=== PATIENT | female | born 1970 | race Caucasian/White ===

== ENCOUNTER 2017-10-22 13:13 | Emergency (ER) | payer MEDICAID, OTHER ==
--- NOTE | 2017-10-22 14:11 | EDM.PDOC ---
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 Woke up this morning and fell out of bed with low back pain. Reports back issues yearly. Denies numbness or tingling. No urinary symptoms. Did use a TENS unit to get onto the couch. Her boyfriend brought her in today. 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 (see below) - Related Data Allergies Allergy/AdvReac Type Severity Reaction Status Date / Time cephalexin Allergy Rash Verified 10/22/17 13:52 clarithromycin [From Biaxin] Allergy Hives Verified 10/22/17 13:52 tramadol Allergy Abdominal Verified 10/22/17 13:53 Cramps Home Meds: Home Meds Gabapentin [Neurontin] 10/22/17 [History] Imipramine HCl 10/22/17 [History] Iron,Carbonyl/Vit C/Vit B12/Fa [Fe C Plus] 10/22/17 [History] Levothyroxine 10/22/17 [History] Lisinopril 10/22/17 [History] Ranitidine [Zantac] 10/22/17 [History] atorvaSTATin [Lipitor] 10/22/17 [History] Past Medical History Cardiovascular History: Reports: High Cholesterol, Hypertension Genitourinary History: Reports: UTI, Recurrent Musculoskeletal History: Reports: Fibromyalgia, Osteoporosis Endocrine/Metabolic History: Reports: Diabetes, Type II - Past Surgical History GI Surgical History: Reports: Bariatric Procedure, Cholecystectomy Female Surgical History: Reports: Tubal Ligation Social & Family History - Tobacco Use Smoking Status *Q: Never Smoker ED ROS GENERAL - Review of Systems Review Of Systems: See Below Constitutional: Reports: No Symptoms HEENT: Reports: No Symptoms Respiratory: Reports: No Symptoms Cardiovascular: Reports: No Symptoms Endocrine: Reports: No Symptoms GI/Abdominal: Reports: No Symptoms : Reports: No Symptoms Musculoskeletal: Reports: Back Pain Skin: Reports: No Symptoms Neurological: Reports: No Symptoms Psychiatric: Reports: No Symptoms Hematologic/Lymphatic: Reports: No Symptoms ED EXAM,LOWER BACK PAIN/INJURY - Physical Exam Exam: See Below Exam Limited By: No Limitations General Appearance: Alert, WD/WN, No Apparent Distress Ears: Normal External Exam, Normal Canal, Hearing Grossly Normal, Normal TMs Nose: Normal Inspection, Normal Mucosa, No Blood Throat/Mouth: Normal Inspection, Normal Lips, Normal Teeth, Normal Gums, Normal Oropharynx, Normal Voice, No Airway Compromise Head: Atraumatic, Normocephalic Neck: Normal Inspection, Supple, Non-Tender, Full Range of Motion Respiratory/Chest: No Respiratory Distress, Lungs Clear, Normal Breath Sounds, No Accessory Muscle Use, Chest Non-Tender Cardiovascular: Normal Peripheral Pulses, Regular Rate, Rhythm, No Edema, No Gallop, No JVD, No Murmur, No Rub GI/Abdominal: Normal Bowel Sounds, Soft, Non-Tender, No Organomegaly, No Distention, No Abnormal Bruit, No Mass Back Exam: Normal Inspection, Full Range of Motion, Other (pain with palpation over the posterior ischeal tuberosities) Extremities: Normal Inspection, Normal Range of Motion, Non-Tender, No Pedal Edema, Normal Capillary Refill Neurological: Alert, Normal Mood/Affect, Normal Dorsiflexion, CN II-XII Intact, Normal Plantar Flexion, Normal Gait, Normal Reflexes, No Motor/Sensory Deficits , Oriented x 3 Course - Vital Signs Last Recorded V/S: Last Vital Signs Temp 97.5 F 10/22/17 14:01 Pulse 91 10/22/17 14:01 Resp 16 10/22/17 14:01 BP 165/91 H 10/22/17 14:01 Pulse Ox 100 10/22/17 14:01 - Orders/Labs/Meds Meds: Medications Discontinued Medications Generic Name Dose Route Start Last Admin Trade Name Heladioq PRN Reason Stop Dose Admin Cyclobenzaprine HCl 10 mg 10/22/17 14:14 10/22/17 14:26 Flexeril PO 10/22/17 14:15 10 mg ONETIME ONE Administration Hydromorphone HCl 0.5 mg 10/22/17 14:55 10/22/17 15:09 Dilaudid IM 10/22/17 14:56 0.5 mg ONETIME ONE Administration Ketorolac Tromethamine 60 mg 10/22/17 14:14 10/22/17 14:27 Toradol IM 10/22/17 14:15 60 mg ONETIME ONE Administration Departure - Departure Time of Disposition: 15:45 Disposition: Home, Self-Care 01 Condition: Good Clinical Impression: Low back pain Qualifiers: Chronicity: acute Back pain laterality: midline Sciatica presence: without sciatica Qualified Code(s): M54.5 - Low back pain - Discharge Information Instructions: Back Exercises, Back Pain, Adult Referrals: PCP,None [Primary Care Provider] - Forms: ED Department Discharge Additional Instructions: Pt given Cyclobenzaprine and Ketorolac 60mg IM with partial response. Dilaudid 0.5mg IM given with good relief of pain. Ice applied. Pt to return home with ice, Aleve 1-2 tabs BID and stretching exercises. RX for Cyclobenzaprine 10mg TID prn pain. - Problem List & Annotations (1) Low back pain SNOMED Code(s): 488761166 Code(s): M54.5 - LOW BACK PAIN Status: Acute Priority: Medium Current Visit: Yes Qualifiers: Chronicity: acute Back pain laterality: midline Sciatica presence: without sciatica Qualified Code(s): M54.5 - Low back pain
[2017-10-22] MEDS ORDERED: Ketorolac 60 MG/2 ML SDV IM ONE (14:14)
[2017-10-22] MEDS ORDERED: Cyclobenzaprine 10 MG Tab PO ONE (14:14)
[2017-10-22] MEDS ORDERED: HYDROmorphone 0.5 MG/0.5 ML Syringe IM ONE (14:55)
== END 2017-10-22 15:53 | disposition home or self-care (01) ==
LOC: JP.ED 13:13
DX: M54.5 Low back pain (principal); E78.00 Pure hypercholesterolemia, unspecified; I10 Essential (primary) hypertension; E11.9 Type 2 diabetes mellitus without complications; Z88.1 Allergy status to other antibiotic agents; Z88.5 Allergy status to narcotic agent; Z79.899 Other long term (current) drug therapy
CPT/HCPCS: 96372; 99283; A9270; J1170; J1885

== ENCOUNTER 2019-01-30 12:02 | Emergency (ER) | payer MEDICAID ==
[2019-01-30] MEDS ORDERED: Acetaminophen 500 MG Tab PO ONE (13:25)
[2019-01-30] MEDS ORDERED: Phenazopyridine 95 MG Tab PO ONE (13:25)
[2019-01-30] MEDS ORDERED: Glycerin Adult 2.1 GM Supp RECTAL ONE (13:25)
[2019-01-30] MEDS ORDERED: Polyethylene Glycol 3350 Powder 17 GM Packet PO ONE (13:25)
[2019-01-30] MEDS ORDERED: Oxybutynin 5 MG Tab PO SCH (13:30)
--- NOTE | 2019-01-30 13:32 | EDM.PDOC ---
ED HPI GENERAL MEDICAL PROBLEM - General Chief Complaint: Abdominal Pain Stated Complaint: UTI, PAIN IN ABDOMEN Time Seen by Provider: 01/30/19 13:10 Source of Information: Reports: Patient, Old Records, RN History Limitations: Reports: No Limitations - History of Present Illness INITIAL COMMENTS - FREE TEXT/NARRATIVE: 48 yo female from [place], [place] presents with severe lower abdominal cramping. Has been hospitalized and evaluated by urology for a complicated UTI with a highly resistant strain of Klebsiella. Is currently taking methenamine prophylactically. Is taking a daily dose of Miralax, but admits she is currently constipated. No fevers. Is worried about her sx's being from another UTI. Last saw urology 6 days ago. PHx of [place] gastric bypass and AODM. Is perimenopausal. Is on Vesicare already. Onset: Today Onset Date: 01/30/19 Duration: Hour(s):, Waxing/Waning Location: Reports: Abdomen (low), Pelvis (bladder area) Quality: Reports: Other (crampy) Severity: Severe Improves with: Reports: None Worsens with: Reports: Other (unknown) Context: Reports: Other (See HPI) Associated Symptoms: Reports: Other (constipation). 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: Other (see below) (Usual meds only) Left Lower Pelvic Pain Score (Numeric/FACES): 10 - Related Data Allergies Allergy/AdvReac Type Severity Reaction Status Date / Time cephalexin Allergy Rash Verified 01/30/19 12:25 clarithromycin [From Biaxin] Allergy Hives Verified 01/30/19 12:25 tramadol Allergy Abdominal Verified 01/30/19 12:25 Cramps Home Meds: Home Meds Gabapentin [Neurontin] 300 mg PO DAILY 10/22/17 [History] Imipramine HCl 50 mg PO BEDTIME 10/22/17 [History] Iron,Carbonyl/Vit C/Vit B12/Fa [Fe C Plus] 1 tab PO DAILY 10/22/17 [History] Levothyroxine 200 mcg PO DAILY 10/22/17 [History] Lisinopril 10 mg PO DAILY 10/22/17 [History] atorvaSTATin [Lipitor] 20 mg PO DAILY 10/22/17 [History] Cholecalciferol (Vitamin D3) [Vitamin D] 1,000 units PO DAILY 01/30/19 [History] Ferrous Sulfate [Ferosul] 1 tab PO DAILY 01/30/19 [History] Gabapentin [Neurontin] 100 mg PO TID 01/30/19 [History] Methenamine Hippurate [Hiprex] 1 tab PO BID 01/30/19 [History] Mupirocin Oint [Bactroban Oint] 1 applic TOP TID 01/30/19 [History] Ondansetron HCl [Ondansetron] 1 tab PO TID PRN 01/30/19 [History] Polyethylene Glycol 3350 [Gavilax] 17 gm PO DAILY 01/30/19 [History] SUMAtriptan [Imitrex] 1 tab PO DAILY PRN 01/30/19 [History] Saccharomyces Boulardii [Florastor] 1 tab PO BID 01/30/19 [History] traZODone HCl [Trazodone HCl] 1 tab PO BEDTIME 01/30/19 [History] Past Medical History Cardiovascular History: Reports: High Cholesterol, Hypertension Genitourinary History: Reports: Renal Calculus, UTI, Recurrent Other Genitourinary History: infected cyst on one kidney and stone in other [employer] History: Reports: Musculoskeletal History: Reports: Fibromyalgia, Osteoporosis Neurological History: Reports: Migraines Endocrine/Metabolic History: Reports: Diabetes, Type II Hematologic History: Reports: B12 Deficiency, Iron Deficiency - Infectious Disease History Infectious Disease History: Reports: C-Difficile - Past Surgical History HEENT Surgical History: Reports: Tonsillectomy GI Surgical History: Reports: Bariatric Procedure, Cholecystectomy, Colonoscopy , EGD, Esophageal Dilatation Female Surgical History: Reports: Tubal Ligation Social & Family History - Tobacco Use Smoking Status *Q: Never Smoker - Caffeine Use Caffeine Use: Reports: Soda - Recreational Drug Use Recreational Drug Use: No ED ROS GENERAL - Review of Systems Review Of Systems: See Below Constitutional: Reports: No Symptoms HEENT: Reports: No Symptoms Respiratory: Reports: No Symptoms Cardiovascular: Reports: No Symptoms GI/Abdominal: Reports: Abdominal Pain (low, crampy), Constipation. Denies: Black Stool, Bloody Stool, Diarrhea, Distension, Flatus, Hematemesis, Melena, Nausea, Vomiting : Reports: Urgency. Denies: Dysuria, Hematuria Musculoskeletal: Reports: No Symptoms Skin: Reports: No Symptoms Neurological: Reports: No Symptoms ED EXAM, GI/ABD - Physical Exam Exam: See Below Exam Limited By: No Limitations General Appearance: Alert, WD/WN, No Apparent Distress Eyes: Bilateral: Normal Appearance Ears: Normal External Exam, Normal Canal, Hearing Grossly Normal Nose: Normal Inspection, No Blood Throat/Mouth: Normal Inspection, Normal Lips, Normal Oropharynx, Normal Voice, No Airway Compromise Head: Atraumatic, Normocephalic Neck: Normal Inspection Respiratory/Chest: No Respiratory Distress, Lungs Clear, Normal Breath Sounds, No Accessory Muscle Use Cardiovascular: Regular Rate, Rhythm, No Edema GI/Abdominal Exam: Normal Bowel Sounds, Soft, No Distention, Tender (mild low abdominal tenderness with palpation. ). No: Non-Tender, Distended, Guarding, Rigid, Rebound Back Exam: Normal Inspection. No: CVA Tenderness (R), CVA Tenderness (L) Extremities: Normal Inspection, Normal Range of Motion, Non-Tender, No Pedal Edema Neurological: Alert, Oriented, CN II-XII Intact, Normal Cognition, No Motor/ Sensory Deficits Psychiatric: Normal Affect, Normal Mood Skin Exam: Warm, Dry, Intact, Normal Color, No Rash Course - Vital Signs Text/Narrative:: small hard stool only with a Fleets enema. Last Recorded V/S: Last Vital Signs Temp 36.7 C 01/30/19 14:51 Pulse 84 01/30/19 14:51 Resp 18 01/30/19 14:51 BP 129/93 H 01/30/19 14:51 Pulse Ox 97 01/30/19 14:51 - Orders/Labs/Meds Orders: Active Orders 24 hr Category Date Time Status Enema [RC] ASDIRECTED Care 01/30/19 14:14 Active Oxybutynin Med 01/30/19 13:30 Active 5 mg PO DAILY Medication Orders Oxybutynin Chloride (Oxybutynin) 5 mg PO DAILY DEVAUGHN Last Admin: 01/30/19 13:36 Dose: 5 mg Labs: Laboratory Tests 01/30/19 Range/Units 12:24 Urine Color Yellow (YELLOW) Urine Appearance Slightly cloudy A (CLEAR) Urine pH 6.0 (5.0-8.0) Ur Specific [place] >= 1.030 (1.008-1.030) Urine Protein 30 H (NEGATIVE) mg/dL Urine Glucose (UA) Negative (NEGATIVE) mg/dL Urine Ketones Negative (NEGATIVE) mg/dL Urine Occult Blood Trace-intact H (NEGATIVE) Urine Nitrite Negative (NEGATIVE) Urine Bilirubin Negative (NEGATIVE) Urine Urobilinogen 0.2 (0.2-1.0) EU/dL Ur Leukocyte Esterase Negative (NEGATIVE) Urine RBC 0-5 (0-5) Urine WBC 0-5 (0-5) Ur Epithelial Cells Moderate Amorphous Sediment Not seen Urine Bacteria Few Urine Mucus Not seen Meds: Medications Generic Name Dose Route Start Last Admin Trade Name Freq PRN Reason Stop Dose Admin Oxybutynin Chloride 5 mg 01/30/19 13:30 01/30/19 13:36 Oxybutynin PO 5 mg DAILY DEVAUGHN Administration Discontinued Medications Generic Name Dose Route Start Last Admin Trade Name Freq PRN Reason Stop Dose Admin Acetaminophen 1,000 mg 01/30/19 13:25 01/30/19 13:36 Tylenol Extra Strength PO 01/30/19 13:26 1,000 mg ONETIME ONE Administration Glycerin 1 supp 01/30/19 13:25 01/30/19 13:36 Sani-Supp Adult RECTAL 01/30/19 13:26 1 supp ONETIME ONE Administration Phenazopyridine HCl 190 mg 01/30/19 13:25 01/30/19 13:36 Urinary Pain Relief PO 01/30/19 13:26 190 mg ONETIME ONE Administration Polyethylene Glycol 34 gm 01/30/19 13:25 01/30/19 13:35 Miralax PO 01/30/19 13:26 34 gm ONETIME ONE Administration Departure - Departure Time of Disposition: 14:56 Disposition: Home, Self-Care 01 Condition: Fair Clinical Impression: Constipation Qualifiers: Constipation type: slow transit constipation Qualified Code(s): K59.01 - Slow transit constipation - Discharge Information *PRESCRIPTION DRUG MONITORING PROGRAM REVIEWED*: No *COPY OF PRESCRIPTION DRUG MONITORING REPORT IN PATIENT OLYA: No Instructions: High-Fiber Diet Referrals: PCP,None [Primary Care Provider] - Forms: ED Department Discharge Additional Instructions: Drink enough Miralax with sufficient water to produce a sizeable soft stool. If you have a good cleaning out and still have pain then you will need to be rechecked. Continue your current medications and add acetaminophen as needed for more pain relief. You may also try repeating the Fleets enemas to speed up the process of evacuating your colon. - My Orders Last 24 Hours: My Active Orders 01/30/19 13:30 Oxybutynin 5 mg PO DAILY 01/30/19 14:14 Enema [RC] ASDIRECTED - Assessment/Plan Last 24 Hours: My Active Orders 01/30/19 13:30 Oxybutynin 5 mg PO DAILY 01/30/19 14:14 Enema [RC] ASDIRECTED
== END 2019-01-30 15:10 | disposition home or self-care (01) ==
LOC: JP.ED 12:02
DX: K59.01 Slow transit constipation (principal); I10 Essential (primary) hypertension; E11.9 Type 2 diabetes mellitus without complications; E78.00 Pure hypercholesterolemia, unspecified; Z88.1 Allergy status to other antibiotic agents; Z88.5 Allergy status to narcotic agent; Z79.899 Other long term (current) drug therapy
CPT/HCPCS: 81001; 99284; A9270

== ENCOUNTER 2020-04-05 01:43 | Inpatient (IN) | payer MEDICAID ==
[2020-04-05] MEDS ORDERED: Ondansetron 4 MG/2 ML SDV IVPUSH ONE (02:26)
--- NOTE | 2020-04-05 02:28 | EDM.PDOC ---
ED HPI GENERAL MEDICAL PROBLEM - General Chief Complaint: Gastrointestinal Problem Stated Complaint: ABD PAIN/BURNING Time Seen by Provider: 04/05/20 02:21 Source of Information: Reports: Patient, Family, RN Notes Reviewed History Limitations: Reports: No Limitations - History of Present Illness INITIAL COMMENTS - FREE TEXT/NARRATIVE: 49-year-old female presents emergency department a complaint of epigastric pain she had a gastric bypass in 2011 she states the pain has started about 3 to 4 days ago but got progressively worse today has had nausea and vomiting she still passing gas still have bowel movements she states the pain is exacerbated by food does have a history of cholecystectomy as well no fevers epigastric Pain Score (Numeric/FACES): 10 - Related Data Allergies Allergy/AdvReac Type Severity Reaction Status Date / Time cephalexin Allergy Rash Verified 04/05/20 02:08 clarithromycin [From Biaxin] Allergy Hives Verified 04/05/20 02:08 morphine Allergy Abdominal Verified 04/05/20 03:01 Pain tramadol Allergy Abdominal Verified 04/05/20 02:08 Cramps Home Meds: Home Meds Imipramine HCl 50 mg PO BEDTIME 10/22/17 [History] Iron,Carbonyl/Vit C/Vit B12/Fa [Fe C Plus] 1 tab PO DAILY 10/22/17 [History] Levothyroxine 175 mcg PO DAILY 10/22/17 [History] Lisinopril 10 mg PO DAILY 10/22/17 [History] atorvaSTATin [Lipitor] 20 mg PO DAILY 10/22/17 [History] Cholecalciferol (Vitamin D3) [Vitamin D] 1,000 units PO DAILY 01/30/19 [History] Ferrous Sulfate [Ferosul] 1 tab PO DAILY 01/30/19 [History] Methenamine Hippurate [Hiprex] 1 tab PO BID 01/30/19 [History] SUMAtriptan [Imitrex] 1 tab PO DAILY PRN 01/30/19 [History] Saccharomyces Boulardii [Florastor] 1 tab PO BID 01/30/19 [History] ondansetron HCL [Ondansetron] 1 tab PO TID PRN 01/30/19 [History] polyethylene glycoL 3350 [Gavilax] 17 gm PO DAILY PRN 01/30/19 [History] traZODone HCl [Trazodone HCl] 1 tab PO BEDTIME 01/30/19 [History] Cyanocobalamin (Vitamin B12) [Vitamin B12] 1 injection IM Q30D 04/05/20 [History] DULoxetine [Cymbalta] 30 mg PO DAILY 04/05/20 [History] Esomeprazole Magnesium [Nexium] 40 mg PO DAILY 04/05/20 [History] Past Medical History Cardiovascular History: Reports: High Cholesterol, Hypertension Gastrointestinal History: Reports: GERD, PUD Genitourinary History: Reports: Pyelonephritis, Renal Calculus, UTI, Recurrent Other Genitourinary History: infected cyst on one kidney and stone in other [employer]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: Musculoskeletal History: Reports: Fibromyalgia, Osteoporosis Neurological History: Reports: Migraines Psychiatric History: Reports: Depression Endocrine/Metabolic History: Reports: Diabetes, Type II Hematologic History: Reports: Anemia, B12 Deficiency, Iron Deficiency - Infectious Disease History Infectious Disease History: Reports: C-Difficile - Past Surgical History HEENT Surgical History: Reports: Tonsillectomy GI Surgical History: Reports: Bariatric Procedure, Cholecystectomy, Colonoscopy, EGD, Esophageal Dilatation Female Surgical History: Reports: Tubal Ligation Social & Family History - Tobacco Use Tobacco Use Status *Q: Never Tobacco User - Caffeine Use Caffeine Use: Reports: Soda - Recreational Drug Use Recreational Drug Use: No ED ROS GENERAL - Review of Systems Review Of Systems: See Below Constitutional: Reports: No Symptoms HEENT: Reports: No Symptoms Respiratory: Reports: No Symptoms Cardiovascular: Reports: No Symptoms GI/Abdominal: Reports: Abdominal Pain, Flatus, Nausea, Vomiting. Denies: Constipation, Diarrhea : Reports: No Symptoms ED EXAM, GI/ABD - Physical Exam Exam: See Below Exam Limited By: No Limitations General Appearance: Alert, Mild Distress Respiratory/Chest: No Respiratory Distress, Lungs Clear, Normal Breath Sounds, No Accessory Muscle Use, Chest Non-Tender Cardiovascular: Regular Rate, Rhythm, No Murmur GI/Abdominal Exam: Normal Bowel Sounds, Soft, Tender (Epigastric region) Course - Vital Signs Last Recorded V/S: Last Vital Signs Temp 97.8 F 04/05/20 02:16 Pulse 105 H 04/05/20 03:27 Resp 20 04/05/20 03:27 BP 193/100 H 04/05/20 03:27 Pulse Ox 99 04/05/20 03:27 - Orders/Labs/Meds Orders: Active Orders 24 hr Category Date Time Status Peripheral IV Care [RC] . DIRECTED Care 04/05/20 02:25 Active ETHANOL BLOOD MEDICAL [CHEM] Stat Lab 04/05/20 04:37 Ordered TRIGLYCERIDES [CHEM] Stat Lab 04/05/20 04:37 Ordered UA W/MICROSCOPIC [URIN] Urgent Lab 04/05/20 02:24 Ordered Lactated Ringers [Ringers, Lactated] 1,000 ml Med 04/05/20 02:30 Active IV ASDIRECTED Lactated Ringers [Ringers, Lactated] 1,000 ml Med 04/05/20 04:32 Active IV BOLUS Sodium Chloride 0.9% [Saline Flush] Med 04/05/20 02:24 Active 10 ml FLUSH ASDIRECTED PRN Sodium Chloride 0.9% [Saline Flush] Med 04/05/20 03:42 Active 10 ml FLUSH ONETIME PRN Peripheral IV Insertion Adult [OM.PC] Urgent Oth 04/05/20 02:24 Ordered Medication Orders Lactated Ringer's (Ringers, Lactated) 1,000 mls @ 999 mls/hr IV ASDIRECTED DEVAUGHN Last Admin: 04/05/20 02:48 Dose: 999 mls/hr Documented by: JERRELL Lactated Ringer's (Ringers, Lactated) 1,000 mls @ 999 mls/hr IV BOLUS ONE Stop: 04/05/20 05:32 Last Admin: 04/05/20 04:35 Dose: 999 mls/hr Documented by: JERRELL Sodium Chloride (Saline Flush) 10 ml FLUSH ASDIRECTED PRN PRN Reason: Keep Vein Open Last Admin: 04/05/20 03:22 Dose: 10 ml Documented by: Admin: 04/05/20 02:50 Dose: 10 ml Documented by: JERRELL Sodium Chloride (Saline Flush) 10 ml FLUSH ONETIME PRN PRN Reason: PER RADIOLOGY PROTOCOL Last Admin: 04/05/20 03:54 Dose: 10 ml Documented by: ITZ Labs: Laboratory Tests 04/05/20 04/05/20 04/05/20 Range/Units 02:40 02:40 02:40 WBC 17.1 H (4.5-11.0) K/uL RBC 4.79 (3.30-5.50) M/uL Hgb 12.8 (12.0-15.0) g/dL Hct 42.3 (36.0-48.0) % MCV 88 (80-98) fL MCH 27 (27-31) pg MCHC 30 L (32-36) % Plt Count 505 H (150-400) K/uL Neut % (Auto) 85 H (36-66) % Lymph % (Auto) 8 L (24-44) % Bremer % (Auto) 7 H (2-6) % Eos % (Auto) 0 L (2-4) % Baso % (Auto) 0 (0-1) % Sodium 132 L (140-148) mmol/L Potassium 4.4 (3.6-5.2) mmol/L Chloride 96 L (100-108) mmol/L Carbon Dioxide 19 L (21-32) mmol/L Anion Gap 21.4 H (5.0-14.0) mmol/L BUN 20 H (7-18) mg/dL Creatinine 1.1 H (0.6-1.0) mg/dL Est Cr Clr Drug Dosing 48.39 mL/min Estimated GFR (MDRD) 53 L (>60) Glucose 306 H (74-106) mg/dL Lactic Acid 5.9 H (0.4-2.0) mmol/L Calcium 8.6 (8.5-10.1) mg/dL Total Bilirubin 0.7 (0.2-1.0) mg/dL AST 28 (15-37) U/L ALT 33 (12-78) U/L Alkaline Phosphatase 137 H (46-116) U/L Troponin I < 0.017 (0.000-0.056) ng/mL Total Protein 7.6 (6.4-8.2) g/dL Albumin 3.4 (3.4-5.0) g/dL Globulin 4.2 H (2.3-3.5) g/dL Albumin/Globulin Ratio 0.8 L (1.2-2.2) Lipase 2521 H (73-393) U/L Meds: Medications Generic Name Dose Route Start Last Admin Trade Name Freq PRN Reason Stop Dose Admin Lactated Ringer's 1,000 mls @ 999 mls/hr 04/05/20 02:30 04/05/20 02:48 Ringers, Lactated IV 999 mls/hr ASDIRECTED DEVAUGHN Administration Lactated Ringer's 1,000 mls @ 999 mls/hr 04/05/20 04:32 04/05/20 04:35 Ringers, Lactated IV 04/05/20 05:32 999 mls/hr BOLUS ONE Administration Sodium Chloride 10 ml 04/05/20 02:24 04/05/20 03:22 Saline Flush FLUSH 10 ml ASDIRECTED PRN Administration Keep Vein Open Sodium Chloride 10 ml 04/05/20 03:42 04/05/20 03:54 Saline Flush FLUSH 10 ml ONETIME PRN Administration PER RADIOLOGY PROTOCOL Discontinued Medications Generic Name Dose Route Start Last Admin Trade Name Freq PRN Reason Stop Dose Admin Fentanyl 50 mcg 04/05/20 02:26 04/05/20 02:54 Sublimaze IM 04/05/20 02:27 Not Given ONETIME ONE Fentanyl 50 mcg 04/05/20 02:53 04/05/20 02:43 Sublimaze IVPUSH 04/05/20 02:54 50 mcg ONETIME ONE Administration Hydromorphone HCl 1 mg 04/05/20 03:09 04/05/20 03:15 Dilaudid IVPUSH 04/05/20 03:10 1 mg ONETIME ONE Administration Hydromorphone HCl 1 mg 04/05/20 04:39 Dilaudid IVPUSH 04/05/20 04:40 ONETIME ONE Sodium Chloride 77 mls @ 3 mls/sec 04/05/20 03:42 04/05/20 03:54 Normal Saline IV 04/05/20 03:43 3 mls/sec ONETIME ONE Administration Iopamidol 100 ml 04/05/20 03:42 04/05/20 03:54 Isovue-300 (61%) IV 100 ml . DIRECTED PRN Administration RADIOLOGY EXAM Ketamine HCl 20 mg 04/05/20 03:09 04/05/20 03:18 Ketalar IV 04/05/20 03:10 20 mg ONETIME ONE Administration Ondansetron HCl 4 mg 04/05/20 02:26 04/05/20 02:40 Zofran IVPUSH 04/05/20 02:27 4 mg ONETIME ONE Administration Departure - Departure Time of Disposition: 04:47 Disposition: Admitted As Inpatient 65 Condition: Fair Clinical Impression: Pancreatitis Qualifiers: Chronicity: acute Pancreatitis type: unspecified pancreatitis type Acute pancreatitis complication: no infection or necrosis Qualified Code(s): K85.90 - Acute pancreatitis without necrosis or infection, unspecified - Discharge Information Instructions: Acute Pancreatitis, [id number] Referrals: PCP,None [Primary Care Provider] - Forms: ED Department Discharge Sepsis Event Note (ED) - Evaluation Sepsis Screening Result: No Definite Risk - Focused Exam Vital Signs: Vital Signs Temp Pulse Resp BP Pulse Ox 04/05/20 03:27 105 H 20 193/100 H 99 04/05/20 03:07 106 H 22 H 162/116 H 97 04/05/20 02:16 97.8 F 121 H 22 H 112/92 H 97 - My Orders Last 24 Hours: My Active Orders 04/05/20 02:24 UA W/MICROSCOPIC [URIN] Urgent Sodium Chloride 0.9% [Saline Flush] 10 ml FLUSH ASDIRECTED PRN Peripheral IV Insertion Adult [OM.PC] Urgent 04/05/20 02:25 Peripheral IV Care [RC] . DIRECTED 04/05/20 02:30 Lactated Ringers [Ringers, Lactated] 1,000 ml IV ASDIRECTED 04/05/20 03:42 Sodium Chloride 0.9% [Saline Flush] 10 ml FLUSH ONETIME PRN 04/05/20 04:32 Lactated Ringers [Ringers, Lactated] 1,000 ml IV BOLUS 04/05/20 04:37 ETHANOL BLOOD MEDICAL [CHEM] Stat TRIGLYCERIDES [CHEM] Stat - Assessment/Plan Last 24 Hours: My Active Orders 04/05/20 02:24 UA W/MICROSCOPIC [URIN] Urgent Sodium Chloride 0.9% [Saline Flush] 10 ml FLUSH ASDIRECTED PRN Peripheral IV Insertion Adult [OM.PC] Urgent 04/05/20 02:25 Peripheral IV Care [RC] . DIRECTED 04/05/20 02:30 Lactated Ringers [Ringers, Lactated] 1,000 ml IV ASDIRECTED 04/05/20 03:42 Sodium Chloride 0.9% [Saline Flush] 10 ml FLUSH ONETIME PRN 04/05/20 04:32 Lactated Ringers [Ringers, Lactated] 1,000 ml IV BOLUS 04/05/20 04:37 ETHANOL BLOOD MEDICAL [CHEM] Stat TRIGLYCERIDES [CHEM] Stat Plan: Assessment Acuity = acute Site and laterality = pancreatitis complicated patient with known history of gastric bypass Etiology = unknown Manifestations = abdominal pain, nausea, vomiting Location of injury = Home Lab values = WBC elevated 17.1 consistent leukocytosis, platelets elevated 550 consistent with thrombocytosis sodium low at 132 consistent hyponatremia glucose elevated 306 consistent hyperglycemia lactic acid elevated 5.9 consistent with lactic acidosis probably related to the nausea and vomiting troponin was negative lipase elevated 2521 CT scan consistent with pancreatitis Plan Call discussed case with both Dr. Sheehan and Dr. Gonzales, Dr. Sheehan asked to be consulted admitting physician will be the hospitalist service at [phone] This note was dictated using [employer] voice recognition software please call with any questions on syntax or grammar.
[2020-04-05] MEDS ORDERED: Lactated Ringers 1,000 ML IV SCH ×3 (02:30→11:30)
[2020-04-05] MEDS: fentaNYL 100 MCG/2 ML SDV IM ONE ×2 (02:49→02:54)
[2020-04-05] MEDS: Sodium Chloride 0.9% 10 ML Syringe FLUSH PRN ×2 (02:50→03:22)
[2020-04-05] MEDS ORDERED: fentaNYL 100 MCG/2 ML SDV IVPUSH ONE ×2 (02:53→11:13)
[2020-04-05] MEDS ORDERED: Ketamine 500 MG/5 ML MDV IV ONE (03:09)
[2020-04-05] MEDS ORDERED: HYDROmorphone 1 MG/ML Syringe IVPUSH ONE ×2 (03:09→04:39)
[2020-04-05] MEDS ORDERED: Sodium Chloride 0.9% 10 ML Syringe FLUSH PRN (03:42)
[2020-04-05] MEDS ORDERED: Iopamidol 612 MG/ML 100 ML Bottle IV PRN (03:42)
--- NOTE | 2020-04-05 04:27 | CRLCT ---
Indication: Epigastric pain, history of Davis-en-Y Technique: Contrast enhanced axial CT imaging through the abdomen and pelvis. 100 mL Isovue-300 contrast agent was administered intravenously. Sagittal and coronal reconstructions are provided. Comparison: None Findings: There is diffuse peripancreatic edema, consistent with pancreatitis. The pancreatic body and tail demonstrate normal enhancement. There is heterogeneous enhancement of the pancreatic head. The pancreatic duct is nondilated. There is no peripancreatic fluid collection. There is no significant abnormality of the liver, spleen, adrenal glands, or kidneys. Focus of benign focal fat is noted in the anterior left hepatic lobe. Cholecystectomy clips are noted. The portal vein, hepatic veins, and IVC are patent. The abdominal aorta is normal in caliber. Mild peripancreatic lymphadenopathy is presumably reactive. Davis-en-Y gastric bypass changes are noted. There is no small bowel thickening or abnormal distention. The appendix is noninflamed. There is no colonic wall thickening. Retroperitoneal fluid extends into the right paracolic gutter. There is no mesenteric edema. The osseous structures are unremarkable. The included lung bases are clear. Impression: Acute pancreatitis. Heterogeneous enhancement of the pancreatic head, raising concern for necrosis. No peripancreatic fluid collection. Normal caliber pancreatic duct. Please note that all CT scans at this facility use dose modulation, iterative reconstruction, and/or weight-based dosing when appropriate to reduce radiation dose to as low as reasonably achievable. Dictated by Nydia Wood MD @ Apr 05 2020 4:12AM Signed by Dr. Nydia Wood @ Apr 05 2020 4:25AM
[2020-04-05] MEDS ORDERED: Lactated Ringers 1,000 ML IV ONE (04:32)
[2020-04-05] MEDS ORDERED: diphenhydrAMINE 50 MG/ML SDV IVPUSH PRN (04:54)
[2020-04-05] MEDS ORDERED: Naloxone 0.4 MG/ML SDV IVPUSH PRN (04:54)
[2020-04-05] MEDS ORDERED: Ondansetron 4 MG/2 ML SDV IVPUSH PRN (04:54)
[2020-04-05] MEDS ORDERED: diphenhydrAMINE 25 MG Cap PO PRN (04:54)
[2020-04-05] MEDS ORDERED: Lactated Ringers 5,000 ML IV SCH (05:00)
[2020-04-05] MEDS ORDERED: HYDROmorphone/Normal Saline 15 MG/30 ML PCA IV SCH (05:00)
[2020-04-05] MEDS: Lactated Ringers 1,000 ML IV SCH ×4 (06:24→09:18)
[2020-04-05] MEDS: Pantoprazole 40 MG Vial IVPUSH SCH ×2 (07:49→20:03)
[2020-04-05] MEDS: hydrOXYzine HCL 100 MG/2 ML SDV IM PRN ×2 (08:00→21:40)
--- NOTE | 2020-04-05 08:29 | HP ---
CHIEF COMPLAINT: Abdominal pain. HISTORY OF PRESENT ILLNESS: This is a 49-year-old who had a gastric bypass surgery in 2011. She states that ever since she had surgery, she has had stomach trouble. She has had ulcer. She has had esophageal dilation. The last few days had increasing burning-type pain in the epigastric area and then developed nausea with vomiting with any type of eating. The pain worsened. She came into the emergency room for further evaluation and was noted to have elevated lipase and abnormal pancreas on CT scan consistent with pancreatitis, and I was asked to admit the patient for further evaluation and treatment. Initially, she was given fentanyl, which did not help with her pain and was given Dilaudid which did help, but since admission it has not been helping as well. PAST MEDICAL HISTORY: 1. Gastric bypass surgery in [place] in 2011. 2. Cholecystectomy. She has had history of sepsis due to pyelonephritis. She has had a history of kidney stone. 3. Fibromyalgia. 4. Osteoporosis. 5. Migraine headaches. 6. Depression. 7. Diabetes mellitus. 8. Iron deficiency anemia. 9. Essential hypertension. 10.Hyperlipidemia. MEDICATIONS: Atorvastatin 20 mg daily; vitamin D 1000 units p.o. daily; vitamin B12 of 1000 mcg every 30 days; Cymbalta 30 mg daily; Nexium 40 mg daily; ferrous sulfate 325 mg daily; imipramine 50 mg at bedtime; iron; vitamin C 1 daily; levothyroxine 175 mcg daily, it is not clear if it is 75 mcg daily or 175 mcg daily; lisinopril 10 mg daily; Hiprex 1 p.o. b.i.d.; Zofran p.r.n.; polyethylene glycol 17 g daily; Florastor 250 mg 1 b.i.d.; Imitrex 50 mg p.r.n.; and trazodone 50 mg at bedtime. ALLERGIES: CEPHALEXIN, CLARITHROMYCIN, MORPHINE, AND TRAMADOL. SOCIAL HISTORY: Denies tobacco use. FAMILY HISTORY: Noncontributory. REVIEW OF SYSTEMS: HEENT: Denies headaches, vision changes, or upper respiratory symptoms. CHEST: No chest pain, shortness of breath, or cough. ABDOMEN: She did have the nausea, but it is better. She does have a burning epigastric pain. The rest of her abdomen is nontender. She has been having regular bowel movements. GENITOURINARY: Denies any urinary trouble. EXTREMITIES: No swelling in her legs. INTEGUMENTARY: No skin problems. NEUROLOGIC: No neurologic complaints reported. PHYSICAL EXAMINATION: VITAL SIGNS: Weight 79 kg, temp 35.8, pulse 105, blood pressure 193/100, respirations 20, and O2 saturation 99% on room air. HEENT: Pharynx is clear. NECK: Supple. No adenopathy or thyromegaly. LUNGS: Clear. HEART: Regular without murmurs. ABDOMEN: She did have the epigastric pain. There is no distention. Did not feel any organomegaly. EXTREMITIES: No edema. SKIN: Negative. NEUROLOGIC: Cranial nerves 2 through 12 are grossly intact. Alert and oriented, did look like she was in a fair amount of discomfort right now. IMAGING DATA: CT scan consistent with pancreatitis with enhancement of the pancreatic head, raising concerns for necrosis. LABORATORY DATA: Lipase is elevated at 2521. Sodium 132, potassium 4.4, BUN is 20, creatinine 1.1, and glucose 306. Lactic acid is elevated at 5.9. Alkaline phosphatase is elevated 137. Troponin less than 0.017. Urinalysis showed some protein and sugar, was unremarkable. White count elevated at 17,000, hemoglobin 12.8, and platelets 505,000. ASSESSMENT: 1. Acute pancreatitis, previous gastric bypass surgery, and previous cholecystectomy. We will admit her for pain control. N.p.o. Nausea control. Inpatient. We will consult Surgery because of her gastric bypass surgery. Transfer care to the Hospitalist Service in the morning. 2. Essential hypertension, which was elevated on arrival. 3. Type 2 diabetes mellitus. 4. Other medical problems as listed above. Matt Gonzales MD /[id number]
[2020-04-05] MEDS ORDERED: Non-Formulary Medication 1 Each (Levothyroxine [Levothyroxine] 175 MCG) PO SCH (09:00)
[2020-04-05] MEDS ORDERED: Enoxaparin 40 MG/0.4 ML Syringe SUBCUT SCH (09:00)
[2020-04-05] MEDS: Levothyroxine 100 MCG, Levothyroxine 50 MCG, Levothyroxine 25 MCG PO SCH ×3 (10:27)
[2020-04-05] MEDS: DULoxetine 30 MG Cap PO SCH (10:28)
[2020-04-05] MEDS: Ondansetron 4 MG/2 ML SDV IVPUSH PRN ×2 (11:10→21:40)
[2020-04-05] MEDS: Ketorolac 30 MG/ML SDV IVPUSH PRN ×2 (11:47→17:46)
[2020-04-05] MEDS: LORazepam 2 MG/ML SDV IVPUSH PRN ×2 (11:47→16:48)
[2020-04-05] MEDS: fentaNYL 100 MCG/2 ML SDV IVPUSH PRN ×4 (14:24→22:01)
[2020-04-05] MEDS: traZODone 50 MG Tab PO SCH (22:04)
[2020-04-05] MEDS ORDERED: Furosemide 20 MG/2 ML VIAL IVPUSH ONE (22:39)
[2020-04-06] MEDS: fentaNYL 100 MCG/2 ML SDV IVPUSH PRN ×5 (00:01→10:20)
[2020-04-06] MEDS: Ketorolac 30 MG/ML SDV IVPUSH PRN ×2 (04:16→13:02)
[2020-04-06] MEDS: hydrOXYzine HCL 100 MG/2 ML SDV IM PRN (06:23)
[2020-04-06] MEDS: Ondansetron 4 MG/2 ML SDV IVPUSH PRN (06:50)
[2020-04-06] MEDS: Pantoprazole 40 MG Vial IVPUSH SCH ×2 (07:37→19:17)
[2020-04-06] MEDS: Levothyroxine 100 MCG, Levothyroxine 50 MCG, Levothyroxine 25 MCG PO SCH ×3 (07:40)
[2020-04-06] MEDS: LORazepam 2 MG/ML SDV IVPUSH PRN ×3 (07:46→21:34)
[2020-04-06] MEDS: DULoxetine 30 MG Cap PO SCH (09:01)
[2020-04-06] MEDS ORDERED: Phenazopyridine 95 MG Tab PO PRN ×2 (09:57→11:59)
--- NOTE | 2020-04-06 11:20 | CONS ---
DATE OF SERVICE: 04/05/2020 REFERRING PHYSICIAN: CONSULTING PHYSICIAN: Gonzales Sheehan MD HISTORY OF PRESENT ILLNESS: This is a 49-year-old female status post Davis-en-Y gastric bypass done in [place] in 2011. Since that time, she has had some persistent problems with gastric or marginal ulcers, did have a surgery for what sounds like marginal ulcer problems in 2016, but continued to have ongoing epigastric pain. She is status post previous cholecystectomy. The patient was admitted overnight with acute pancreatitis. CT scan shows more or less diffuse peripancreatic edema. There does not appear to be a focal area suggestive of ulceration into the area of the pancreas adjacent to the gastric pouch. She did say she had an upper endoscopy done in [place] 2 weeks ago with some biopsies. Examination shows the patient to be fairly uncomfortable, but otherwise the abdomen is minimally distended. There is somewhat ongoing epigastric discomfort. LABORATORY DATA: Labs show white count of 17,000, hemoglobin of 12.8, lactic acid is somewhat high at 5.9, glucose is presently 306, triglycerides are somewhat high at 222, and we will obtain a full lipid panel tomorrow. Lipase is 2521. IMPRESSION: Acute pancreatitis, etiology is indeterminate. At this point, we will check a lipid panel, lipase, amylase, and lactate again tomorrow morning. Also, we will check some vitamin levels and ferritin. She does report she has had iron-deficiencies in the past and may benefit from iron infusion while she is here. Otherwise, we will plan to proceed with an MRCP on Tuesday. She states she had an upper endoscopy 2 weeks ago or so in [place] and we will try to obtain those copies. It may be worthwhile to have another endoscopy here perhaps on Tuesday to try to clarify what really is going on with the anatomy there. I suspect she still has an overly large pouch creating the ongoing problems with her GI tract symptoms. Gonzales Sheehan MD /[id number]
--- NOTE | 2020-04-06 11:41 | PCM.PN ---
- General Info Date of Service: 04/06/20 Subjective Update: Overnight the patient had difficulty with a fair amount of pain as well as low urine output. Pain is a little better today but still moderately severe. A fentanyl QUARTER FOLDER was ordered this morning but has not been started yet. Lipase has improved to 1500 today. She has some nausea but no vomiting. She had a diarrhea bowel movement this morning. She is up and walking in the halls but is somewhat uncomfortable. Blood pressure has stabilized. Functional Status: Reports: Pain Controlled - Review of Systems General: Denies: Fever Gastrointestinal: Reports: Abdominal Pain - Patient Data Vitals - Most Recent: Last Vital Signs Temp 36.2 C 04/06/20 11:09 Pulse 124 H 04/06/20 11:09 Resp 24 H 04/06/20 11:09 BP 152/94 H 04/06/20 11:09 Pulse Ox 100 04/06/20 11:09 Weight - Most Recent: 82.282 kg I&O - Last 24 Hours: Intake & Output 04/05/20 04/06/20 04/06/20 22:59 06:59 14:59 Intake Total 7557 240 Output Total 175 800 150 Balance 7382 -560 -150 Lab Results Last 24 Hours: Laboratory Results - last 24 hr 04/05/20 04/05/20 04/06/20 Range/Units 16:54 21:00 04:00 WBC (4.5-11.0) K/uL RBC (3.30-5.50) M/uL Hgb (12.0-15.0) g/dL Hct (36.0-48.0) % MCV (80-98) fL MCH (27-31) pg MCHC (32-36) % Plt Count (150-400) K/uL Sodium 136 L (140-148) mmol/L Potassium 4.0 (3.6-5.2) mmol/L Chloride 99 L (100-108) mmol/L Carbon Dioxide 24 (21-32) mmol/L Anion Gap 17.0 H (5.0-14.0) mmol/L BUN 15 (7-18) mg/dL Creatinine 1.0 (0.6-1.0) mg/dL Est Cr Clr Drug Dosing 53.23 mL/min Estimated GFR (MDRD) 59 L (>60) Glucose 217 H (74-106) mg/dL POC Glucose 236 H 204 H (74-106) MG/DL Calcium 8.1 L (8.5-10.1) mg/dL Phosphorus 3.4 (2.5-4.9) mg/dL Magnesium 1.2 L (1.8-2.4) mg/dL Ferritin 85 (8-388) ng/ml Total Bilirubin 0.4 (0.2-1.0) mg/dL AST 26 (15-37) U/L ALT 23 (12-78) U/L Alkaline Phosphatase 139 H (46-116) U/L Lactate Dehydrogenase 220 (82-234) U/L Total Protein 5.8 L (6.4-8.2) g/dL Albumin 2.4 L (3.4-5.0) g/dL Globulin 3.4 (2.3-3.5) g/dL Albumin/Globulin Ratio 0.7 L (1.2-2.2) Triglycerides 718 H (15-150) mg/dL Cholesterol 140 (0-200) mg/dL LDL Cholesterol Direct 39 (0-100) mg/dL HDL Cholesterol 21 L (40-60) mg/dL Amylase 128 H (25-115) U/L Lipase 1524 H (73-393) U/L Vitamin B12 325 (193-986) pg/ml Folate 18.0 (8.6-58.9) ng/ml TSH, Ultra Sensitive 4.681 H (0.358-3.740) uIU/mL 04/06/20 04/06/20 04/06/20 Range/Units 04:00 07:29 11:30 WBC 16.8 H (4.5-11.0) K/uL RBC 4.79 (3.30-5.50) M/uL Hgb 13.0 (12.0-15.0) g/dL Hct 43.2 (36.0-48.0) % MCV 90 (80-98) fL MCH 27 (27-31) pg MCHC 30 L (32-36) % Plt Count 272 (150-400) K/uL Sodium (140-148) mmol/L Potassium (3.6-5.2) mmol/L Chloride (100-108) mmol/L Carbon Dioxide (21-32) mmol/L Anion Gap (5.0-14.0) mmol/L BUN (7-18) mg/dL Creatinine (0.6-1.0) mg/dL Est Cr Clr Drug Dosing mL/min Estimated GFR (MDRD) (>60) Glucose (74-106) mg/dL POC Glucose 204 H 193 H (74-106) MG/DL Calcium (8.5-10.1) mg/dL Phosphorus (2.5-4.9) mg/dL Magnesium (1.8-2.4) mg/dL Ferritin (8-388) ng/ml Total Bilirubin (0.2-1.0) mg/dL AST (15-37) U/L ALT (12-78) U/L Alkaline Phosphatase (46-116) U/L Lactate Dehydrogenase (82-234) U/L Total Protein (6.4-8.2) g/dL Albumin (3.4-5.0) g/dL Globulin (2.3-3.5) g/dL Albumin/Globulin Ratio (1.2-2.2) Triglycerides (15-150) mg/dL Cholesterol (0-200) mg/dL LDL Cholesterol Direct (0-100) mg/dL HDL Cholesterol (40-60) mg/dL Amylase (25-115) U/L Lipase (73-393) U/L Vitamin B12 (193-986) pg/ml Folate (8.6-58.9) ng/ml TSH, Ultra Sensitive (0.358-3.740) uIU/mL Med Orders - Current: Current Medications Diphenhydramine HCl (Benadryl) 25 mg IVPUSH Q6H PRN PRN Reason: Itching Diphenhydramine HCl (Benadryl) 25 mg PO Q6H PRN PRN Reason: Itching Duloxetine HCl (Cymbalta) 30 mg PO DAILY DEVAUGHN Last Admin: 04/06/20 09:01 Dose: 30 mg Documented by: Fentanyl (Sublimaze) 50 mcg IVPUSH Q2H PRN PRN Reason: Pain (severe 7-10) Last Admin: 04/06/20 10:20 Dose: 50 mcg Documented by: Hydroxyzine HCl (Vistaril) 100 mg IM Q4H PRN PRN Reason: Pain Last Admin: 04/06/20 06:23 Dose: 100 mg Documented by: Lactated Ringer's (Ringers, Lactated) 1,000 mls @ 125 mls/hr IV ASDIRECTED [facility] Last Admin: 04/05/20 11:42 Dose: 125 mls/hr Documented by: Imipramine HCl (Imipramine Hcl) 50 mg PO BEDTIME [facility] Last Admin: 04/05/20 22:04 Dose: 50 mg Documented by: Ketorolac Tromethamine (Toradol) 30 mg IVPUSH Q6H PRN PRN Reason: Pain (moderate 4-6) Stop: 04/10/20 11:14 Last Admin: 04/06/20 04:16 Dose: 30 mg Documented by: Levothyroxine Sodium 100 mcg/Levothyroxine Sodium 50 mcg/Levothyroxine Sodium 25 mcg 175 mcg PO ACBREAKFAST [facility] Last Admin: 04/06/20 07:40 Dose: 175 mcg Documented by: Lorazepam (Ativan) 0.5 mg IVPUSH Q4H PRN PRN Reason: Nausea/Vomiting Last Admin: 04/06/20 07:46 Dose: 0.5 mg Documented by: Naloxone HCl (Narcan) 0.04 mg IVPUSH Q3M PRN PRN Reason: Respiratory Depression Ondansetron HCl (Zofran) 4 mg IVPUSH Q4H PRN PRN Reason: Nausea/Vomiting Last Admin: 04/06/20 06:50 Dose: 4 mg Documented by: Pantoprazole Sodium (Protonix Iv) 40 mg IVPUSH Q12H [facility] Last Admin: 04/06/20 07:37 Dose: 40 mg Documented by: Phenazopyridine HCl (Urinary Pain Relief) 95 mg PO TID PRN PRN Reason: Dysuria Last Admin: 04/06/20 10:21 Dose: 95 mg Documented by: Sodium Chloride (Saline Flush) 10 ml FLUSH ASDIRECTED PRN PRN Reason: Keep Vein Open Last Admin: 04/05/20 03:22 Dose: 10 ml Documented by: Trazodone HCl (Trazodone) 50 mg PO BEDTIME [facility] Last Admin: 04/05/20 22:04 Dose: 50 mg Documented by: Discontinued Medications Enoxaparin Sodium (Lovenox) 40 mg SUBCUT DAILY [facility] Last Admin: 04/05/20 09:30 Dose: 40 mg Documented by: Fentanyl (Sublimaze) 50 mcg IM ONETIME ONE Stop: 04/05/20 02:27 Last Admin: 04/05/20 02:54 Dose: Not Given Documented by: Fentanyl (Sublimaze) 50 mcg IVPUSH ONETIME ONE Stop: 04/05/20 02:54 Last Admin: 04/05/20 02:43 Dose: 50 mcg Documented by: Fentanyl (Sublimaze) 100 mcg IVPUSH ONETIME ONE Stop: 04/05/20 11:14 Last Admin: 04/05/20 11:48 Dose: 100 mcg Documented by: Furosemide (Lasix) 20 mg IVPUSH ONETIME ONE Stop: 04/05/20 22:40 Last Admin: 04/05/20 23:14 Dose: 20 mg Documented by: Hydromorphone HCl (Dilaudid) 1 mg IVPUSH ONETIME ONE Stop: 04/05/20 03:10 Last Admin: 04/05/20 03:15 Dose: 1 mg Documented by: Hydromorphone HCl (Dilaudid) 1 mg IVPUSH ONETIME ONE Stop: 04/05/20 04:40 Last Admin: 04/05/20 04:47 Dose: 1 mg Documented by: Hydromorphone HCl (Dilaudid Medical Claims Manager 15 Mg In Ns 30 Ml) 15 mg IV ASDIRECTED DEVAUGHN; Protocol Last Admin: 04/05/20 05:40 Dose: 15 mg Documented by: Lactated Ringer's (Ringers, Lactated) 1,000 mls @ 999 mls/hr IV ASDIRECTED DEVAUGHN Last Admin: 04/05/20 02:48 Dose: 999 mls/hr Documented by: Sodium Chloride (Normal Saline) 77 mls @ 3 mls/sec IV ONETIME ONE Stop: 04/05/20 03:43 Last Admin: 04/05/20 03:54 Dose: 3 mls/sec Documented by: Lactated Ringer's (Ringers, Lactated) 1,000 mls @ 999 mls/hr IV BOLUS ONE Stop: 04/05/20 05:32 Last Admin: 04/05/20 04:35 Dose: 999 mls/hr Documented by: Lactated Ringer's (Ringers, Lactated) 1,000 mls @ 999 mls/hr IV Q1H DEVAUGHN Stop: 04/05/20 10:59 Last Admin: 04/05/20 09:18 Dose: 999 mls/hr Documented by: Lactated Ringer's (Ringers, Lactated) 1,000 mls @ 999 mls/hr IV Q1H DEVAUGHN Stop: 04/05/20 10:59 Last Admin: 04/05/20 10:27 Dose: 999 mls/hr Documented by: Iopamidol (Isovue-300 (61%)) 100 ml IV . DIRECTED PRN PRN Reason: RADIOLOGY EXAM Last Admin: 04/05/20 03:54 Dose: 100 ml Documented by: Ketamine HCl (Ketalar) 20 mg IV ONETIME ONE Stop: 04/05/20 03:10 Last Admin: 04/05/20 03:18 Dose: 20 mg Documented by: Ondansetron HCl (Zofran) 4 mg IVPUSH ONETIME ONE Stop: 04/05/20 02:27 Last Admin: 04/05/20 02:40 Dose: 4 mg Documented by: Ondansetron HCl (Zofran) 4 mg IVPUSH Q6H PRN PRN Reason: Nausea/Vomiting Sodium Chloride (Saline Flush) 10 ml FLUSH ONETIME PRN PRN Reason: PER RADIOLOGY PROTOCOL Last Admin: 04/05/20 03:54 Dose: 10 ml Documented by: - Exam Quality Assessment: Supplemental Oxygen General: Alert, Oriented, Cooperative, Mild Distress Lungs: Normal Respiratory Effort. No: Crackles, Wheezing Cardiovascular: Regular Rhythm, Tachycardia GI/Abdominal Exam: Soft, No Distention, Tender (moderately severe diffuse). No: Normal Bowel Sounds (hypoactive) Extremities: No Pedal Edema. No: Increased Warmth Skin: Warm, Dry Psy/Mental Status: Alert, Normal Affect Sepsis Event Note - Evaluation Sepsis Screening Result: Severe Sepsis Risk - Focused Exam Vital Signs: Vital Signs Temp Temp Pulse Resp BP Pulse Ox Pulse Ox 04/06/20 11:09 36.2 C 124 H 24 H 152/94 H 100 04/06/20 07:30 36.2 C 124 H 18 141/94 H 93 L 04/06/20 07:26 94 L 04/06/20 04:52 95 04/06/20 02:45 36.2 C 125 H 14 138/93 H 95 04/06/20 01:00 137 H 128/88 93 L - Problem List Review Problem List Initiated/Reviewed/Updated: Yes - My Orders Last 24 Hours: My Active Orders 04/05/20 11:00 Levothyroxine [Synthroid] 175 mcg PO ACBREAKFAST 04/05/20 11:14 Ketorolac [Toradol] 30 mg IVPUSH Q6H PRN 04/05/20 11:15 LORazepam [Ativan] 0.5 mg IVPUSH Q4H PRN 04/05/20 12:00 fentaNYL [Sublimaze] 50 mcg IVPUSH Q2H PRN 04/05/20 16:00 Convert IV to Saline Lock [OM.PC] Routine 04/05/20 21:00 Imipramine HCl 50 mg PO BEDTIME traZODone 50 mg PO BEDTIME 04/05/20 22:45 Insert Moon Catheter [Insert Urinary Catheter] [OM.PC] Q24H 04/06/20 09:57 Phenazopyridine [Urinary Pain Relief] 95 mg PO TID PRN - Plan Plan:: ASSESSMENT AND PLAN - Acute pancreatitis-CT suggested possible necrosis at the head of the pancreas though there is no strong evidence for infection as of yet. Initially triglycerides were normal but have jumped more than 700 today and this could be contributing. Level is improving. Pain is better but still fairly significant. She has had plenty of IV fluid and although urine output has not been great I am hesitant to give her any more. No significant edema or respiratory compromise as of yet. -Symptomatic management with pain and nausea control -Repeat labs in the morning -MRCP planned for tomorrow -Restarting atorvastatin to help with triglycerides -Surgical consultation appreciated History of gastric bypass surgery-Dr. Sheehan is following. Endoscopy may be considered in the next couple of days. -Surgical follow-up per Dr. Sheehan Maintenance issues - - DVT prophylaxis -mechanical - GI prophylaxis -PPI - Nutrition -n.p.o. - Moon catheter -not indicated Disposition -I would anticipate discharge home after the hospital stay Francisco Brock M.D.
[2020-04-06] MEDS ORDERED: Naloxone 0.4 MG/ML SDV IV PRN (12:00)
[2020-04-06] MEDS ORDERED: atorvaSTATin 20 MG Tab PO ONE (13:15)
[2020-04-06] MEDS: fentaNYL/Normal Saline 600 MCG/30 ML PCA Vial IV PRN (13:22)
[2020-04-06] MEDS ORDERED: Lactated Ringers 1,000 ML IV SCH (16:45)
[2020-04-06] MEDS: traZODone 50 MG Tab PO SCH (21:27)
[2020-04-07] MEDS: fentaNYL/Normal Saline 600 MCG/30 ML PCA Vial IV PRN ×2 (06:45→20:35)
[2020-04-07] MEDS ORDERED: Gadoteridol 279.3 MG/ML 20 ML SDV IV SCH (08:45)
[2020-04-07] MEDS: Levothyroxine 100 MCG, Levothyroxine 50 MCG, Levothyroxine 25 MCG PO SCH ×3 (09:38)
[2020-04-07] MEDS: atorvaSTATin 20 MG Tab PO SCH (09:38)
[2020-04-07] MEDS: Pantoprazole 40 MG Vial IVPUSH SCH ×2 (09:38→19:37)
[2020-04-07] MEDS: DULoxetine 30 MG Cap PO SCH (09:39)
--- NOTE | 2020-04-07 13:11 | PN ---
DATE OF SERVICE: 04/07/2020 SUBJECTIVE: Radha is n.p.o. She will be having an MRCP today. She continues to report pain on a pain scale of 1 to 10 of 5/10. She is using a fentanyl RADIO TIME SALESPERSON. She has not had any fever or chills. Denies any other associated signs and symptoms. She reports that she has had problems after her Davis-en-Y gastric bypass surgery in 2011. Her consult weight was 209. Her lowest weight was 134. She has had a lot of problems with abdominal pain and ulcers. Currently living in [place], [place]. Her primary bariatric surgeon is Dr. Charlton. She states that she plans to get to [facility] and to move to the [place] area. Has not been taking her vitamins. States she takes some on and off. Drinking 3 cans of regular Coke a day ago. Cohabitating. 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 Has 2 children, 2 boys, ages 27 and 22. States that she has been to [place] and all over, every place she can think of, she states, and she continues to have a lot of problems since her gastric bypass surgery. REVIEW OF SYSTEMS: Remainder of review of systems negative for any pertinent positives and negatives. OBJECTIVE: GENERAL: Radha Isbell is a pleasant 49-year-old female. VITAL SIGNS: TPR 97.2, 110, 14, blood pressure 134/83. HEENT: Negative. NECK: Supple. HEART: Regular rate and rhythm. LUNGS: Clear. ABDOMEN: Tenderness noted in all 4 quadrants. EXTREMITIES: Without peripheral edema. ASSESSMENT: 1. Pancreatitis. 2. Elevated triglycerides. 3. Status post Davis-en-Y gastric bypass surgery. 4. Unspecified surgical malabsorption. 5. B12 deficiency. 6. Iron-deficiency anemia. 7. Fibromyalgia. 8. Osteoporosis. 9. Migraine headaches. 10.Depression. 11.Hypertension. 12.Hypertriglyceridemia. 13.Migraine headaches. 14.History of sepsis following a pyelonephritis 1 year ago. PLAN: 1. To call Dr. Gonzales Sheehan after MRCP is done. 2. Discontinue Accu-Chek. 3. Check CBC, CMP, mag, phos, amylase, and lipase in a.m. 4. We will evaluate p.r.n. or in a.m. Leny Norby, PA-C /[id number]
--- NOTE | 2020-04-07 13:47 | MR ---
Abdomen w wo Cont CLINICAL HISTORY: Pancreatitis COMPARISON: CT abdomen 04/05/2020 TECHNIQUE: Multiple images of the biliary system were obtained. All images were obtained on a 1.5 Lindsey Siemens unit. FINDINGS: There is fluid surrounding the pancreas extending into the left upper quadrant perisplenic space. There is ascitic fluid around the liver. There is some inflammatory change and fluid signal within the left perinephric space. The pancreas is slightly edematous but fairly well-demarcated. Pancreatic duct has a normal course and caliber. There is some mucosal thickening in the stomach extending into the pylorus. There is a rounded filling defect in the duodenal bowel which may represent some prominent mucosa focal mucosal mass is not excluded. There is also some focal soft tissue thickening at the region of the ampulla. This may be inflammatory but, this should be correlated with EGD The liver is enlarged. There is diffuse fatty infiltration. There is a low-attenuation focus contiguous to the interlobar fissure which is felt to represent some asymmetric fatty distribution. IMPRESSION: Moderate peripancreatic, upper abdominal and left perirenal fluid from pancreatitis. This appears similar to the 04/05/2020 CT Gastric mucosal thickening extending to the pyloric channel. There is soft tissue prominence extending into the duodenal bulb which may represent mucosal swelling. There is also some regional soft tissue thickening around the ampulla with poor definition. A mucosal lesion is not excluded and EGD should be considered. Hepatomegaly with diffuse fatty infiltration of the liver
--- NOTE | 2020-04-07 14:53 | PN ---
DATE OF SERVICE: 04/06/2020 The patient has been afebrile. She does have some low-grade tachycardia and continued to complain of abdominal pain in the upper abdomen, radiating down to the back, consistent with pancreatitis. Her amylase and lipase are down somewhat. Otherwise, white count remains somewhat elevated at 16,800 and electrolytes are unremarkable. Creatinine is stable at 1.0 and calcium is likewise stable at 8.1 with this being in the normal range likely related to the albumin being low at 2.4. We obtained the endoscopy report from [place] and that reports some inflammation of the jejunum adjacent to the gastrojejunostomy. Biopsies on that are still not yet available for review. Pain control appeared to be somewhat inadequate, and she did not do well with the Dilaudid TICKET SELLER yesterday. She was tolerating the fentanyl IV, and we will order fentanyl TICKET SELLER for today. I will go ahead and recheck some labs in the morning and plan to proceed with an MRCP tomorrow. Of note, her triglycerides are quite elevated at 718 and that might be the underlying cause for the pancreatitis. She has been complaining of bladder discomfort and takes Pyridium for this periodically and that will be ordered p.r.n. starting today. Gonzales Sheehan MD /[id number]
--- NOTE | 2020-04-07 15:52 | PCM.PN ---
- General Info Date of Service: 04/07/20 Subjective Update: Ms. Isbell has noted improvement in her abdominal pain as well as nausea and vomiting from admission. Continues to experience burning pain in the epigastric and right upper quadrant areas. MRCP was obtained today showing no evidence of significant ductal dilatation. There was fluid and inflammation related to pancreatitis. Also question of possible gastric and duodenal mucosal inflammation, versus mass. Lipase level is shown further improvement but does remain mildly elevated. Functional Status: Reports: Urinating - Review of Systems General: Reports: Weakness, Fatigue. Denies: Fever, Chills Pulmonary: Reports: No Symptoms Cardiovascular: Reports: No Symptoms Gastrointestinal: Reports: Abdominal Pain, Decreased Appetite. Denies: Diarrhea, Difficulty Swallowing, Nausea, Vomiting - Patient Data Vitals - Most Recent: Last Vital Signs Temp 97.2 F 04/07/20 15:35 Pulse 103 H 04/07/20 15:35 Resp 16 04/07/20 15:35 BP 140/84 04/07/20 15:35 Pulse Ox 95 04/07/20 15:35 Weight - Most Recent: 181 lb 9.587 oz I&O - Last 24 Hours: Intake & Output 04/07/20 04/07/20 04/07/20 06:59 14:59 22:59 Intake Total 438 Output Total 225 500 Balance 213 -500 Lab Results Last 24 Hours: Laboratory Results - last 24 hr 04/06/20 04/06/20 04/07/20 Range/Units 16:24 21:00 04:10 WBC 15.7 H (4.5-11.0) K/uL RBC 3.61 (3.30-5.50) M/uL Hgb 9.8 L D (12.0-15.0) g/dL Hct 33.0 L (36.0-48.0) % MCV 91 (80-98) fL MCH 27 (27-31) pg MCHC 30 L (32-36) % Plt Count 181 (150-400) K/uL Neut % (Auto) 90 H (36-66) % Lymph % (Auto) 5 L (24-44) % [place] % (Auto) 5 (2-6) % Eos % (Auto) 0 L (2-4) % Baso % (Auto) 0 (0-1) % Sodium (140-148) mmol/L Potassium (3.6-5.2) mmol/L Chloride (100-108) mmol/L Carbon Dioxide (21-32) mmol/L Anion Gap (5.0-14.0) mmol/L BUN (7-18) mg/dL Creatinine (0.6-1.0) mg/dL Est Cr Clr Drug Dosing mL/min Estimated GFR (MDRD) (>60) Glucose (74-106) mg/dL POC Glucose 190 H 149 H (74-106) MG/DL Calcium (8.5-10.1) mg/dL Total Bilirubin (0.2-1.0) mg/dL AST (15-37) U/L ALT (12-78) U/L Alkaline Phosphatase (46-116) U/L Total Protein (6.4-8.2) g/dL Albumin (3.4-5.0) g/dL Globulin (2.3-3.5) g/dL Albumin/Globulin Ratio (1.2-2.2) Amylase (25-115) U/L Lipase (73-393) U/L 04/07/20 Range/Units 04:10 WBC (4.5-11.0) K/uL RBC (3.30-5.50) M/uL Hgb (12.0-15.0) g/dL Hct (36.0-48.0) % MCV (80-98) fL MCH (27-31) pg MCHC (32-36) % Plt Count (150-400) K/uL Neut % (Auto) (36-66) % Lymph % (Auto) (24-44) % [place] % (Auto) (2-6) % Eos % (Auto) (2-4) % Baso % (Auto) (0-1) % Sodium 135 L (140-148) mmol/L Potassium 4.0 (3.6-5.2) mmol/L Chloride 98 L (100-108) mmol/L Carbon Dioxide 27 (21-32) mmol/L Anion Gap 14.0 (5.0-14.0) mmol/L BUN 26 H D (7-18) mg/dL Creatinine 1.0 (0.6-1.0) mg/dL Est Cr Clr Drug Dosing 53.23 mL/min Estimated GFR (MDRD) 59 L (>60) Glucose 167 H (74-106) mg/dL POC Glucose (74-106) MG/DL Calcium 7.7 L (8.5-10.1) mg/dL Total Bilirubin 0.4 (0.2-1.0) mg/dL AST 27 (15-37) U/L ALT 18 (12-78) U/L Alkaline Phosphatase 119 H (46-116) U/L Total Protein 5.4 L (6.4-8.2) g/dL Albumin 2.0 L (3.4-5.0) g/dL Globulin 3.4 (2.3-3.5) g/dL Albumin/Globulin Ratio 0.6 L (1.2-2.2) Amylase 95 (25-115) U/L Lipase 849 H (73-393) U/L Med Orders - Current: Current Medications Atorvastatin Calcium (Lipitor) 20 mg PO DAILY [facility] Last Admin: 04/07/20 09:38 Dose: 20 mg Documented by: Diphenhydramine HCl (Benadryl) 25 mg IVPUSH Q6H PRN PRN Reason: Itching Diphenhydramine HCl (Benadryl) 25 mg PO Q6H PRN PRN Reason: Itching Duloxetine HCl (Cymbalta) 30 mg PO DAILY [facility] Last Admin: 04/07/20 09:39 Dose: 30 mg Documented by: Fentanyl Citrate (Fentanyl In Ns 20 Mcg/Ml 30 Ml Art Consultant) 0 mcg IV ASDIRECTED PRN; Protocol PRN Reason: Pain Last Admin: 04/07/20 06:45 Dose: 600 mcg Documented by: Hydroxyzine HCl (Vistaril) 100 mg IM Q4H PRN PRN Reason: Pain Last Admin: 04/06/20 06:23 Dose: 100 mg Documented by: Lactated Ringer's (Ringers, Lactated) 1,000 mls @ 0 mls/hr IV ASDIRECTED [facility] Imipramine HCl (Imipramine Hcl) 50 mg PO BEDTIME [facility] Last Admin: 04/06/20 21:27 Dose: 50 mg Documented by: Ketorolac Tromethamine (Toradol) 30 mg IVPUSH Q6H PRN PRN Reason: Pain (moderate 4-6) Stop: 04/10/20 11:14 Last Admin: 04/06/20 13:02 Dose: 30 mg Documented by: Levothyroxine Sodium 100 mcg/Levothyroxine Sodium 50 mcg/Levothyroxine Sodium 25 mcg 175 mcg PO ACBREAKFAST [facility] Last Admin: 04/07/20 09:38 Dose: 175 mcg Documented by: Lorazepam (Ativan) 0.5 mg IVPUSH Q4H PRN PRN Reason: Nausea/Vomiting Last Admin: 04/06/20 21:34 Dose: 0.5 mg Documented by: Naloxone HCl (Narcan) 0.1 mg IV ASDIRECTED PRN PRN Reason: decreased respiratory rate Ondansetron HCl (Zofran) 4 mg IVPUSH Q4H PRN PRN Reason: Nausea/Vomiting Last Admin: 04/06/20 06:50 Dose: 4 mg Documented by: Pantoprazole Sodium (Protonix Iv) 40 mg IVPUSH Q12H [facility] Last Admin: 04/07/20 09:38 Dose: 40 mg Documented by: Phenazopyridine HCl (Urinary Pain Relief) 95 - 190 mg PO TID PRN PRN Reason: Dysuria Sodium Chloride (Saline Flush) 10 ml FLUSH ASDIRECTED PRN PRN Reason: Keep Vein Open Last Admin: 04/05/20 03:22 Dose: 10 ml Documented by: Trazodone HCl (Trazodone) 50 mg PO BEDTIME [facility] Last Admin: 04/06/20 21:27 Dose: 50 mg Documented by: Discontinued Medications Atorvastatin Calcium (Lipitor) 20 mg PO ONETIME ONE Stop: 04/06/20 13:16 Last Admin: 04/06/20 14:59 Dose: 20 mg Documented by: Enoxaparin Sodium (Lovenox) 40 mg SUBCUT DAILY [facility] Last Admin: 04/05/20 09:30 Dose: 40 mg Documented by: Fentanyl (Sublimaze) 50 mcg IM ONETIME ONE Stop: 04/05/20 02:27 Last Admin: 04/05/20 02:54 Dose: Not Given Documented by: Fentanyl (Sublimaze) 50 mcg IVPUSH ONETIME ONE Stop: 04/05/20 02:54 Last Admin: 04/05/20 02:43 Dose: 50 mcg Documented by: Fentanyl (Sublimaze) 100 mcg IVPUSH ONETIME ONE Stop: 04/05/20 11:14 Last Admin: 04/05/20 11:48 Dose: 100 mcg Documented by: Fentanyl (Sublimaze) 50 mcg IVPUSH Q2H PRN PRN Reason: Pain (severe 7-10) Last Admin: 04/06/20 10:20 Dose: 50 mcg Documented by: Furosemide (Lasix) 20 mg IVPUSH ONETIME ONE Stop: 04/05/20 22:40 Last Admin: 04/05/20 23:14 Dose: 20 mg Documented by: Gadoteridol (Prohance) 20 ml IV . DIRECTED [facility] Last Admin: 04/07/20 09:17 Dose: 20 ml Documented by: Hydromorphone HCl (Dilaudid) 1 mg IVPUSH ONETIME ONE Stop: 04/05/20 03:10 Last Admin: 04/05/20 03:15 Dose: 1 mg Documented by: Hydromorphone HCl (Dilaudid) 1 mg IVPUSH ONETIME ONE Stop: 04/05/20 04:40 Last Admin: 04/05/20 04:47 Dose: 1 mg Documented by: Hydromorphone HCl (Dilaudid Art Consultant 15 Mg In Ns 30 Ml) 15 mg IV ASDIRECTED [facility]; Protocol Last Admin: 04/05/20 05:40 Dose: 15 mg Documented by: Lactated Ringer's (Ringers, Lactated) 1,000 mls @ 999 mls/hr IV ASDIRECTED [facility] Last Admin: 04/05/20 02:48 Dose: 999 mls/hr Documented by: Sodium Chloride (Normal Saline) 77 mls @ 3 mls/sec IV ONETIME ONE Stop: 04/05/20 03:43 Last Admin: 04/05/20 03:54 Dose: 3 mls/sec Documented by: Lactated Ringer's (Ringers, Lactated) 1,000 mls @ 999 mls/hr IV BOLUS ONE Stop: 04/05/20 05:32 Last Admin: 04/05/20 04:35 Dose: 999 mls/hr Documented by: Lactated Ringer's (Ringers, Lactated) 1,000 mls @ 999 mls/hr IV Q1H [facility] Stop: 04/05/20 10:59 Last Admin: 04/05/20 09:18 Dose: 999 mls/hr Documented by: Lactated Ringer's (Ringers, Lactated) 1,000 mls @ 125 mls/hr IV ASDIRECTED [facility] Last Admin: 04/05/20 11:42 Dose: 125 mls/hr Documented by: Lactated Ringer's (Ringers, Lactated) 1,000 mls @ 999 mls/hr IV Q1H [facility] Stop: 04/05/20 10:59 Last Admin: 04/05/20 10:27 Dose: 999 mls/hr Documented by: Iopamidol (Isovue-300 (61%)) 100 ml IV . DIRECTED PRN PRN Reason: RADIOLOGY EXAM Last Admin: 04/05/20 03:54 Dose: 100 ml Documented by: Ketamine HCl (Ketalar) 20 mg IV ONETIME ONE Stop: 04/05/20 03:10 Last Admin: 04/05/20 03:18 Dose: 20 mg Documented by: Naloxone HCl (Narcan) 0.04 mg IVPUSH Q3M PRN PRN Reason: Respiratory Depression Ondansetron HCl (Zofran) 4 mg IVPUSH ONETIME ONE Stop: 04/05/20 02:27 Last Admin: 04/05/20 02:40 Dose: 4 mg Documented by: Ondansetron HCl (Zofran) 4 mg IVPUSH Q6H PRN PRN Reason: Nausea/Vomiting Phenazopyridine HCl (Urinary Pain Relief) 95 mg PO TID PRN PRN Reason: Dysuria Last Admin: 04/06/20 10:21 Dose: 95 mg Documented by: Sodium Chloride (Saline Flush) 10 ml FLUSH ONETIME PRN PRN Reason: PER RADIOLOGY PROTOCOL Last Admin: 04/05/20 03:54 Dose: 10 ml Documented by: - Exam General: Alert, Oriented, Cooperative, Moderate Distress Lungs: Clear to Auscultation, Normal Respiratory Effort Cardiovascular: Regular Rate, Regular Rhythm, No Murmurs GI/Abdominal Exam: Soft, No Organomegaly, Distended, Tender. No: Guarding, Rigid, Rebound Extremities: Non-Tender, No Pedal Edema Sepsis Event Note - Evaluation Sepsis Screening Result: Sepsis Risk - Focused Exam Vital Signs: Vital Signs Temp Pulse Resp BP Pulse Ox Pulse Ox 04/07/20 15:35 97.2 F 103 H 16 140/84 95 04/07/20 13:52 94 L 04/07/20 11:00 96.8 F L 115 H 16 133/80 91 L 04/07/20 07:17 93 L 12/07/20 07:00 97.2 F 118 H 16 129/76 95 04/07/20 04:00 94 L - Problem List Review Problem List Initiated/Reviewed/Updated: Yes - My Orders Last 24 Hours: My Active Orders 04/07/20 12:35 Antiembolic Devices [RC] .Routine Sequential Compression Device [OM.PC] Routine - Plan Plan:: ASSESSMENT AND PLAN - Acute pancreatitis-ERCP obtained today showing no evidence of ductal obstruction. There was evidence of gastric and duodenal mucosal inflammation versus mass. Evidence of pancreatitis and associated fluid. -Symptomatic management with pain and nausea control -Repeat labs in the morning -Restarting atorvastatin to help with triglycerides -Surgical consultation appreciated History of gastric bypass surgery-Dr. Sheehan is following. Endoscopy may be considered in the next couple of days. -Surgical follow-up per Dr. Sheehan, EGD in a.m. Maintenance issues - - DVT prophylaxis -mechanical - GI prophylaxis -PPI - Nutrition -n.p.o. - Moon catheter -not indicated Disposition -I would anticipate discharge home after the hospital stay
[2020-04-07] MEDS: traZODone 50 MG Tab PO SCH (21:00)
[2020-04-08] MEDS ORDERED: Midazolam 1 MG/ML 2 ML SDV ONE (07:37)
[2020-04-08] MEDS ORDERED: fentaNYL 100 MCG/2 ML SDV ONE (07:37)
[2020-04-08] MEDS ORDERED: Propofol 200 MG/20 ML SDV ONE (07:37)
[2020-04-08] MEDS ORDERED: Potassium Phos in 0.9 % NaCl 15 MMOL in Premix Bag 1 BAG IV SCH ×2 (08:00)
[2020-04-08] MEDS: Levothyroxine 100 MCG, Levothyroxine 50 MCG, Levothyroxine 25 MCG PO SCH ×3 (10:13)
[2020-04-08] MEDS: atorvaSTATin 20 MG Tab PO SCH (10:13)
[2020-04-08] MEDS: DULoxetine 30 MG Cap PO SCH (10:13)
[2020-04-08] MEDS: Pantoprazole 40 MG Vial IVPUSH SCH ×2 (10:13→19:49)
[2020-04-08] MEDS: Potassium Phos in 0.9 % NaCl 15 MMOL in Premix Bag 1 BAG IV SCH ×6 (11:33→16:45)
[2020-04-08] MEDS: Magnesium Sulfate/Water 2 GM in Premix Bag 1 BAG IV SCH ×3 (11:47→22:36)
--- NOTE | 2020-04-08 13:35 | PN ---
DATE OF SERVICE: 04/08/2020 SUBJECTIVE: Radha is n.p.o. She will be going on for an endoscopy. Hemoglobin this morning 8.6, potassium 3.1, phos 2.4, magnesium is 1.4. She reports that her pain is not adequately controlled. 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 She has been having a lot of burning in her upper abdomen. REVIEW OF SYSTEMS: Remainder of review of systems negative for any pertinent positives and negatives. OBJECTIVE: GENERAL: Radha is a pleasant 49-year-old female. She is alert and orientated. VITAL SIGNS: TPR is 97.3, 88, 16; blood pressure 125/80 when last checked. HEENT: Negative. NECK: Supple. HEART: Regular rate and rhythm. LUNGS: Clear. ABDOMEN: Slightly distended. Tenderness is noted in the right to left and midepigastric abdominal quadrants. EXTREMITIES: Without peripheral edema. ASSESSMENT: 1. Pancreatitis. 2. Elevated triglycerides. 3. SP Davis-en-Y gastric bypass surgery. 4. Unspecified surgical malabsorption. 5. B12 deficiency. 6. Iron-deficiency anemia. PLAN: 1. EGD scheduled for today. 2. K-Phos 45 millimoles IV. 3. Magnesium 2 g IV q.6 hours x72 hours. 4. Albumin 50 g IV x3 days. 5. KCl 20 mEq IV today. 6. Check CBC, CMP, phos, amylase, and lipase in a.m. 7. We will evaluate after EGD and in a.m. Leny Harmon PA-C /[id number]
--- NOTE | 2020-04-08 13:44 | PCM.PN ---
- General Info Date of Service: 04/08/20 Subjective Update: Ms. Isbell continues to experience epigastric and right upper quadrant abdominal pain. Pain has definitely improved from admission but not totally resolved. She has a longstanding history of pain in this area that was made significantly worse by her pancreatitis. It now seems as though it is back to baseline. EGD performed today by Dr. Sheehan did show evidence of inflammation, she is on IV Protonix. Functional Status: Reports: Ambulating, Urinating. Denies: Tolerating Diet - Review of Systems Pulmonary: Reports: No Symptoms Cardiovascular: Reports: No Symptoms Gastrointestinal: Reports: Abdominal Pain. Denies: Constipation, Diarrhea, Difficulty Swallowing, Nausea, Vomiting Genitourinary: Reports: No Symptoms - Patient Data Vitals - Most Recent: Last Vital Signs Temp 97.3 F 04/08/20 09:50 Pulse 95 04/08/20 11:00 Resp 18 04/08/20 11:00 BP 126/76 04/08/20 11:00 Pulse Ox 95 04/08/20 11:00 Weight - Most Recent: 182 lb 8.684 oz I&O - Last 24 Hours: Intake & Output 04/07/20 04/08/20 04/08/20 22:59 06:59 14:59 Intake Total 255 780 Output Total 700 350 500 Balance -445 -350 280 Lab Results Last 24 Hours: Laboratory Results - last 24 hr 04/08/20 04/08/20 04/08/20 Range/Units 04:00 04:00 04:00 WBC 11.3 H (4.5-11.0) K/uL RBC 3.15 L (3.30-5.50) M/uL Hgb 8.6 L (12.0-15.0) g/dL Hct 28.8 L (36.0-48.0) % MCV 91 (80-98) fL MCH 27 (27-31) pg MCHC 30 L (32-36) % Plt Count 155 (150-400) K/uL Sodium 136 L (140-148) mmol/L Potassium 3.1 L (3.6-5.2) mmol/L Chloride 98 L (100-108) mmol/L Carbon Dioxide 28 (21-32) mmol/L Anion Gap 13.1 (5.0-14.0) mmol/L BUN 13 (7-18) mg/dL Creatinine 0.6 (0.6-1.0) mg/dL Est Cr Clr Drug Dosing 87.95 mL/min Estimated GFR (MDRD) > 60 (>60) Glucose 116 H (74-106) mg/dL Calcium 7.4 L (8.5-10.1) mg/dL Phosphorus 2.4 L (2.5-4.9) mg/dL Magnesium 1.4 L (1.8-2.4) mg/dL Total Bilirubin 0.4 (0.2-1.0) mg/dL AST 24 (15-37) U/L ALT 17 (12-78) U/L Alkaline Phosphatase 108 (46-116) U/L Total Protein 5.0 L (6.4-8.2) g/dL Albumin 1.7 L (3.4-5.0) g/dL Globulin 3.3 (2.3-3.5) g/dL Albumin/Globulin Ratio 0.5 L (1.2-2.2) Amylase 54 (25-115) U/L Lipase 400 H (73-393) U/L SARS-CoV-2 RNA (OCTAVIO) (NEGATIVE) 04/08/20 Range/Units 07:01 WBC (4.5-11.0) K/uL RBC (3.30-5.50) M/uL Hgb (12.0-15.0) g/dL Hct (36.0-48.0) % MCV (80-98) fL MCH (27-31) pg MCHC (32-36) % Plt Count (150-400) K/uL Sodium (140-148) mmol/L Potassium (3.6-5.2) mmol/L Chloride (100-108) mmol/L Carbon Dioxide (21-32) mmol/L Anion Gap (5.0-14.0) mmol/L BUN (7-18) mg/dL Creatinine (0.6-1.0) mg/dL Est Cr Clr Drug Dosing mL/min Estimated GFR (MDRD) (>60) Glucose (74-106) mg/dL Calcium (8.5-10.1) mg/dL Phosphorus (2.5-4.9) mg/dL Magnesium (1.8-2.4) mg/dL Total Bilirubin (0.2-1.0) mg/dL AST (15-37) U/L ALT (12-78) U/L Alkaline Phosphatase (46-116) U/L Total Protein (6.4-8.2) g/dL Albumin (3.4-5.0) g/dL Globulin (2.3-3.5) g/dL Albumin/Globulin Ratio (1.2-2.2) Amylase (25-115) U/L Lipase (73-393) U/L SARS-CoV-2 RNA (OCTAVIO) Negative (NEGATIVE) Med Orders - Current: Current Medications Atorvastatin Calcium (Lipitor) 20 mg PO DAILY [facility] Last Admin: 04/08/20 10:13 Dose: 20 mg Documented by: Diphenhydramine HCl (Benadryl) 25 mg IVPUSH Q6H PRN PRN Reason: Itching Diphenhydramine HCl (Benadryl) 25 mg PO Q6H PRN PRN Reason: Itching Duloxetine HCl (Cymbalta) 30 mg PO DAILY [facility] Last Admin: 04/08/20 10:13 Dose: 30 mg Documented by: Fentanyl Citrate (Fentanyl In Ns 20 Mcg/Ml 30 Ml Studio Musician) 0 mcg IV ASDIRECTED PRN; Protocol PRN Reason: Pain Last Admin: 04/07/20 20:35 Dose: 600 mcg Documented by: Hydroxyzine HCl (Vistaril) 100 mg IM Q4H PRN PRN Reason: Pain Last Admin: 04/06/20 06:23 Dose: 100 mg Documented by: Lactated Ringer's (Ringers, Lactated) 1,000 mls @ 0 mls/hr IV ASDIRECTED [facility] Magnesium Sulfate 2 gm/ Premix 50 mls @ 25 mls/hr IV Q6H [facility] Stop: 04/11/20 06:59 Last Admin: 04/08/20 11:47 Dose: 25 mls/hr Documented by: Albumin Human (Albumin 25%) 25 gm in 100 mls @ 25 mls/hr IV Q24H [facility] Stop: 04/10/20 18:59 Potassium Chloride 20 meq/ (Premix) 100 mls @ 50 mls/hr IV ONETIME ONE Stop: 04/08/20 18:59 Potassium Phosphate 15 mmol/ (Premix) 250 mls @ 125 mls/hr IV Q2H [facility] Stop: 04/08/20 16:59 Last Admin: 04/08/20 11:33 Dose: 125 mls/hr Documented by: Albumin Human (Albumin 25%) 25 gm in 100 mls @ 25 mls/hr IV Q24H [facility] Stop: 04/10/20 14:59 Last Admin: 04/08/20 11:18 Dose: 25 mls/hr Documented by: Imipramine HCl (Imipramine Hcl) 50 mg PO BEDTIME [facility] Last Admin: 04/07/20 21:00 Dose: 50 mg Documented by: Ketorolac Tromethamine (Toradol) 30 mg IVPUSH Q6H PRN PRN Reason: Pain (moderate 4-6) Stop: 04/10/20 11:14 Last Admin: 04/06/20 13:02 Dose: 30 mg Documented by: Levothyroxine Sodium 100 mcg/Levothyroxine Sodium 50 mcg/Levothyroxine Sodium 25 mcg 175 mcg PO ACBREAKFAST [facility] Last Admin: 04/08/20 10:13 Dose: 175 mcg Documented by: Lorazepam (Ativan) 0.5 mg IVPUSH Q4H PRN PRN Reason: Nausea/Vomiting Last Admin: 04/06/20 21:34 Dose: 0.5 mg Documented by: Naloxone HCl (Narcan) 0.1 mg IV ASDIRECTED PRN PRN Reason: decreased respiratory rate Ondansetron HCl (Zofran) 4 mg IVPUSH Q4H PRN PRN Reason: Nausea/Vomiting Last Admin: 04/06/20 06:50 Dose: 4 mg Documented by: Pantoprazole Sodium (Protonix Iv) 40 mg IVPUSH Q12H [facility] Last Admin: 04/08/20 10:13 Dose: 40 mg Documented by: Phenazopyridine HCl (Urinary Pain Relief) 95 - 190 mg PO TID PRN PRN Reason: Dysuria Sodium Chloride (Saline Flush) 10 ml FLUSH ASDIRECTED PRN PRN Reason: Keep Vein Open Last Admin: 04/05/20 03:22 Dose: 10 ml Documented by: Trazodone HCl (Trazodone) 50 mg PO BEDTIME [facility] Last Admin: 04/07/20 21:00 Dose: 50 mg Documented by: Discontinued Medications Atorvastatin Calcium (Lipitor) 20 mg PO ONETIME ONE Stop: 04/06/20 13:16 Last Admin: 04/06/20 14:59 Dose: 20 mg Documented by: Enoxaparin Sodium (Lovenox) 40 mg SUBCUT DAILY [facility] Last Admin: 04/05/20 09:30 Dose: 40 mg Documented by: Fentanyl (Sublimaze) 50 mcg IM ONETIME ONE Stop: 04/05/20 02:27 Last Admin: 04/05/20 02:54 Dose: Not Given Documented by: Fentanyl (Sublimaze) 50 mcg IVPUSH ONETIME ONE Stop: 04/05/20 02:54 Last Admin: 04/05/20 02:43 Dose: 50 mcg Documented by: Fentanyl (Sublimaze) 100 mcg IVPUSH ONETIME ONE Stop: 04/05/20 11:14 Last Admin: 04/05/20 11:48 Dose: 100 mcg Documented by: Fentanyl (Sublimaze) 50 mcg IVPUSH Q2H PRN PRN Reason: Pain (severe 7-10) Last Admin: 04/06/20 10:20 Dose: 50 mcg Documented by: Fentanyl (Sublimaze) Confirm Administered Dose 100 mcg .ROUTE .STK-MED ONE Stop: 04/08/20 07:38 Furosemide (Lasix) 20 mg IVPUSH ONETIME ONE Stop: 04/05/20 22:40 Last Admin: 04/05/20 23:14 Dose: 20 mg Documented by: Gadoteridol (Prohance) 20 ml IV . DIRECTED [facility] Last Admin: 04/07/20 09:17 Dose: 20 ml Documented by: Heparin Sodium (Porcine) (Heparin Lock Flush 100 Units/Ml) Confirm Administered Dose 500 units .ROUTE .STK-MED ONE Stop: 04/08/20 08:18 Last Admin: 04/08/20 09:59 Dose: 500 units Documented by: Hydromorphone HCl (Dilaudid) 1 mg IVPUSH ONETIME ONE Stop: 04/05/20 03:10 Last Admin: 04/05/20 03:15 Dose: 1 mg Documented by: Hydromorphone HCl (Dilaudid) 1 mg IVPUSH ONETIME ONE Stop: 04/05/20 04:40 Last Admin: 04/05/20 04:47 Dose: 1 mg Documented by: Hydromorphone HCl (Dilaudid Studio Musician 15 Mg In Ns 30 Ml) 15 mg IV ASDIRECTED [facility]; Protocol Last Admin: 04/05/20 05:40 Dose: 15 mg Documented by: Lactated Ringer's (Ringers, Lactated) 1,000 mls @ 999 mls/hr IV ASDIRECTED [facility] Last Admin: 04/05/20 02:48 Dose: 999 mls/hr Documented by: Sodium Chloride (Normal Saline) 77 mls @ 3 mls/sec IV ONETIME ONE Stop: 04/05/20 03:43 Last Admin: 04/05/20 03:54 Dose: 3 mls/sec Documented by: Lactated Ringer's (Ringers, Lactated) 1,000 mls @ 999 mls/hr IV BOLUS ONE Stop: 04/05/20 05:32 Last Admin: 04/05/20 04:35 Dose: 999 mls/hr Documented by: Lactated Ringer's (Ringers, Lactated) 1,000 mls @ 999 mls/hr IV Q1H [facility] Stop: 04/05/20 10:59 Last Admin: 04/05/20 09:18 Dose: 999 mls/hr Documented by: Lactated Ringer's (Ringers, Lactated) 1,000 mls @ 125 mls/hr IV ASDIRECTED [facility] Last Admin: 04/05/20 11:42 Dose: 125 mls/hr Documented by: Lactated Ringer's (Ringers, Lactated) 1,000 mls @ 999 mls/hr IV Q1H [facility] Stop: 04/05/20 10:59 Last Admin: 04/05/20 10:27 Dose: 999 mls/hr Documented by: Iopamidol (Isovue-300 (61%)) 100 ml IV . DIRECTED PRN PRN Reason: RADIOLOGY EXAM Last Admin: 04/05/20 03:54 Dose: 100 ml Documented by: Ketamine HCl (Ketalar) 20 mg IV ONETIME ONE Stop: 04/05/20 03:10 Last Admin: 04/05/20 03:18 Dose: 20 mg Documented by: Midazolam HCl (Versed 1 Mg/Ml) Confirm Administered Dose 2 mg .ROUTE .STK-MED ONE Stop: 04/08/20 07:38 Naloxone HCl (Narcan) 0.04 mg IVPUSH Q3M PRN PRN Reason: Respiratory Depression Ondansetron HCl (Zofran) 4 mg IVPUSH ONETIME ONE Stop: 04/05/20 02:27 Last Admin: 04/05/20 02:40 Dose: 4 mg Documented by: Ondansetron HCl (Zofran) 4 mg IVPUSH Q6H PRN PRN Reason: Nausea/Vomiting Phenazopyridine HCl (Urinary Pain Relief) 95 mg PO TID PRN PRN Reason: Dysuria Last Admin: 04/06/20 10:21 Dose: 95 mg Documented by: Propofol (Diprivan 20 Ml) Confirm Administered Dose 200 mg .ROUTE .STK-MED ONE Stop: 04/08/20 07:38 Sodium Chloride (Saline Flush) 10 ml FLUSH ONETIME PRN PRN Reason: PER RADIOLOGY PROTOCOL Last Admin: 04/05/20 03:54 Dose: 10 ml Documented by: - Exam Quality Assessment: DVT Prophylaxis General: Alert, Oriented, Cooperative, Moderate Distress Lungs: Clear to Auscultation, Normal Respiratory Effort Cardiovascular: Regular Rate, Regular Rhythm, No Murmurs GI/Abdominal Exam: Soft, Non-Tender, No Organomegaly, No Distention Extremities: Non-Tender, No Pedal Edema Sepsis Event Note - Evaluation Sepsis Screening Result: No Definite Risk - Focused Exam Vital Signs: Vital Signs Temp Temp Pulse Resp BP Pulse Ox 04/08/20 11:00 95 18 126/76 95 04/08/20 10:45 95 16 127/78 96 04/08/20 10:17 97 16 126/77 97 04/08/20 10:05 94 16 131/82 95 04/08/20 09:50 97.3 F 102 H 18 125/77 95 04/08/20 09:26 97.2 F 98 18 149/89 H 100 04/08/20 09:20 96 14 145/89 H 97 04/08/20 09:15 100 18 142/93 H 99 04/08/20 09:10 96 20 114/66 98 04/08/20 09:05 96.8 F L 96 12 118/68 98 04/08/20 07:10 93 L 04/08/20 03:00 88 16 95 - Problem List Review Problem List Initiated/Reviewed/Updated: Yes - Plan Plan:: ASSESSMENT AND PLAN - Acute pancreatitis-previous pain from admission has improved and is now back to baseline, lipase level almost within normal range -Symptomatic management with pain and nausea control -Repeat labs in the morning -Restarting atorvastatin to help with triglycerides -Surgical consultation appreciated History of gastric bypass surgery-Dr. Sheehan is following. EGD did show evidence of inflammation -Continue Protonix -Surgical follow-up per Dr. Sheehan, EGD in a.m. Maintenance issues - - DVT prophylaxis -mechanical - GI prophylaxis -PPI - Nutrition -n.p.o. - Moon catheter -not indicated Disposition -I would anticipate discharge home after the hospital stay
[2020-04-08] MEDS: fentaNYL/Normal Saline 600 MCG/30 ML PCA Vial IV PRN (13:57)
[2020-04-08] MEDS ORDERED: Potassium Chloride 20 MEQ in Premix Bag 1 BAG IV ONE (17:00)
[2020-04-08] MEDS: traZODone 50 MG Tab PO SCH (20:00)
[2020-04-09] MEDS: Magnesium Sulfate/Water 2 GM in Premix Bag 1 BAG IV SCH ×4 (05:00→22:43)
[2020-04-09] MEDS: fentaNYL/Normal Saline 600 MCG/30 ML PCA Vial IV PRN ×2 (05:11→18:51)
[2020-04-09] MEDS: Pantoprazole 40 MG Vial IVPUSH SCH ×2 (07:17→19:41)
[2020-04-09] MEDS: Levothyroxine 100 MCG, Levothyroxine 50 MCG, Levothyroxine 25 MCG PO SCH ×3 (07:17)
[2020-04-09] MEDS ORDERED: Potassium Chloride Riders 40 MEQ in Premix Bag 1 BAG IV ONE (07:29)
[2020-04-09] MEDS ORDERED: SODIUM CHLORIDE IV SCH (07:30)
[2020-04-09] MEDS ORDERED: POTASSIUM PHOSPHATES IV SCH (07:30)
[2020-04-09] MEDS: Potassium Phos in 0.9 % NaCl 15 MMOL in Premix Bag 1 BAG IV SCH ×6 (08:54→14:56)
[2020-04-09] MEDS: DULoxetine 30 MG Cap PO SCH (08:58)
[2020-04-09] MEDS: atorvaSTATin 20 MG Tab PO SCH (08:59)
--- NOTE | 2020-04-09 10:51 | PN ---
DATE OF SERVICE: 04/09/2020 SUBJECTIVE: Radha reports that her pain was well controlled yesterday until after she ate Jell-O, broth, and had juice. Then, she said she was up most of the night with severe pain across right, mid, and left upper quadrant. EGD was completed. Oral intake 1700. REVIEW OF SYSTEMS: Remainder of review of systems negative for any pertinent positives and negatives. LABORATORY DATA: Hemoglobin stable at 8.6, potassium is 3.5, and phosphorus 2.8. Amylase is down to 38 and lipase is decreasing, it is 366. OBJECTIVE: GENERAL: Radha is a 49-year-old female. She is alert and orientated, looks like she is feeling much better today. VITAL SIGNS: TPR is 97.3, 95, 16, blood pressure 148/89. HEENT: Negative. NECK: Supple. HEART: Regular rate and rhythm. LUNGS: Clear. ABDOMEN: Remains to be tender. Left upper quadrant is more tender than the right. EXTREMITIES: Without peripheral edema. ASSESSMENT: 1. Pancreatitis. 2. Esophagogastroduodenoscopy, upper endoscopy, and placement of central line on 04/08/2020. PLAN: 1. KCl 40 mEq IV 1 time today. 2. K-Phos 45 millimoles IV 1 time today. 3. Check CBC, CMP, mag, phos in a.m. 4. Discussed diet. Just to be on sips of clear liquid and ice chips. To use no straw because of previous Davis-en-Y. Discontinue Jell-O, broth until diet is advanced. 5. We will evaluate p.r.n. or in a.m. Leny Harmon PA-C /[id number]
--- NOTE | 2020-04-09 13:40 | PCM.PN ---
- General Info Date of Service: 04/09/20 Subjective Update: Ms. Isbell continues to experience epigastric and right upper quadrant abdominal pain although it is modestly improved compared to yesterday. She is continued to require use of narcotics for adequate pain control. Lipase level has normalized and she has been hemodynamically stable. Functional Status: Reports: Ambulating, Urinating. Denies: Tolerating Diet - Review of Systems General: Reports: Weakness, Fatigue. Denies: Fever, Chills Pulmonary: Reports: No Symptoms Cardiovascular: Reports: No Symptoms Gastrointestinal: Reports: Abdominal Pain, Decreased Appetite. Denies: Constipation, Diarrhea, Difficulty Swallowing, Nausea, Vomiting Genitourinary: Reports: No Symptoms - Patient Data Vitals - Most Recent: Last Vital Signs Temp 97.3 F 04/09/20 10:47 Pulse 88 04/09/20 10:47 Resp 16 04/09/20 10:47 BP 141/84 H 04/09/20 10:47 Pulse Ox 93 L 04/09/20 10:47 Weight - Most Recent: 180 lb 6.4 oz I&O - Last 24 Hours: Intake & Output 04/08/20 04/09/20 04/09/20 22:59 06:59 14:59 Intake Total 3766 699 4025 Output Total 1200 975 800 Balance 430 -404 1220 Lab Results Last 24 Hours: Laboratory Results - last 24 hr 04/09/20 04/09/20 Range/Units 04:25 04:29 WBC 9.7 (4.5-11.0) K/uL RBC 3.12 L (3.30-5.50) M/uL Hgb 8.6 L (12.0-15.0) g/dL Hct 28.6 L (36.0-48.0) % MCV 92 (80-98) fL MCH 28 (27-31) pg MCHC 30 L (32-36) % Plt Count 165 (150-400) K/uL Sodium 137 L (140-148) mmol/L Potassium 3.5 L (3.6-5.2) mmol/L Chloride 99 L (100-108) mmol/L Carbon Dioxide 29 (21-32) mmol/L Anion Gap 12.5 (5.0-14.0) mmol/L BUN 3 L D (7-18) mg/dL Creatinine 0.5 L (0.6-1.0) mg/dL Est Cr Clr Drug Dosing 105.54 mL/min Estimated GFR (MDRD) > 60 (>60) Glucose 145 H (74-106) mg/dL Calcium 7.6 L (8.5-10.1) mg/dL Phosphorus 2.8 (2.5-4.9) mg/dL Magnesium 2.7 H D (1.8-2.4) mg/dL Total Bilirubin 0.4 (0.2-1.0) mg/dL AST 21 (15-37) U/L ALT 17 (12-78) U/L Alkaline Phosphatase 100 (46-116) U/L Total Protein 5.4 L (6.4-8.2) g/dL Albumin 2.3 L (3.4-5.0) g/dL Globulin 3.1 (2.3-3.5) g/dL Albumin/Globulin Ratio 0.7 L (1.2-2.2) Amylase 38 (25-115) U/L Lipase 366 (73-393) U/L Tl Results Last 24 Hours: Microbiology 04/08/20 09:02 CLOtest - Final Stomach NEGATIVE CLOTEST REFERENCE RANGE: NEGATIVE Med Orders - Current: Current Medications Atorvastatin Calcium (Lipitor) 20 mg PO DAILY [facility] Last Admin: 04/09/20 08:59 Dose: 20 mg Documented by: Diphenhydramine HCl (Benadryl) 25 mg IVPUSH Q6H PRN PRN Reason: Itching Diphenhydramine HCl (Benadryl) 25 mg PO Q6H PRN PRN Reason: Itching Duloxetine HCl (Cymbalta) 30 mg PO DAILY [facility] [place] Last Admin: 04/09/20 08:58 Dose: 30 mg Documented by: Fentanyl Citrate (Fentanyl In Ns 20 Mcg/Ml 30 Ml Material Clerk) 0 mcg IV ASDIRECTED PRN; Protocol PRN Reason: Pain Last Admin: 04/09/20 05:11 Dose: 600 mcg Documented by: Hydroxyzine HCl (Vistaril) 100 mg IM Q4H PRN PRN Reason: Pain Last Admin: 04/06/20 06:23 Dose: 100 mg Documented by: Magnesium Sulfate 2 gm/ Premix 50 mls @ 25 mls/hr IV Q6H [facility] Stop: 04/11/20 06:59 Last Admin: 04/09/20 10:35 Dose: 25 mls/hr Documented by: Albumin Human (Albumin 25%) 25 gm in 100 mls @ 25 mls/hr IV Q24H [facility] [place] Stop: 04/10/20 18:59 Last Admin: 04/08/20 15:19 Dose: 25 mls/hr Documented by: Albumin Human (Albumin 25%) 25 gm in 100 mls @ 25 mls/hr IV Q24H [facility] [place] Stop: 04/10/20 14:59 Last Admin: 04/09/20 10:31 Dose: 25 mls/hr Documented by: Potassium Phosphate 15 mmol/ (Premix) 250 mls @ 84 mls/hr IV Q3H [facility] [place] Stop: 04/09/20 16:59 Last Admin: 04/09/20 11:56 Dose: 84 mls/hr Documented by: Potassium Chloride 20 meq/ (Premix) 100 mls @ 50 mls/hr IV Q2H [facility] [place] Stop: 04/09/20 21:29 Imipramine HCl (Imipramine Hcl) 50 mg PO BEDTIME [facility] [place] Last Admin: 04/08/20 20:00 Dose: 50 mg Documented by: Ketorolac Tromethamine (Toradol) 30 mg IVPUSH Q6H PRN PRN Reason: Pain (moderate 4-6) Stop: 04/10/20 11:14 Last Admin: 04/06/20 13:02 Dose: 30 mg Documented by: Levothyroxine Sodium 100 mcg/Levothyroxine Sodium 50 mcg/Levothyroxine Sodium 25 mcg 175 mcg PO ACBREAKFAST [facility] [place] Last Admin: 04/09/20 07:17 Dose: 175 mcg Documented by: Lorazepam (Ativan) 0.5 mg IVPUSH Q4H PRN PRN Reason: Nausea/Vomiting Last Admin: 04/06/20 21:34 Dose: 0.5 mg Documented by: Naloxone HCl (Narcan) 0.1 mg IV ASDIRECTED PRN PRN Reason: decreased respiratory rate Ondansetron HCl (Zofran) 4 mg IVPUSH Q4H PRN PRN Reason: Nausea/Vomiting Last Admin: 04/06/20 06:50 Dose: 4 mg Documented by: Pantoprazole Sodium (Protonix Iv) 40 mg IVPUSH Q12H [facility] [place] Last Admin: 04/09/20 07:17 Dose: 40 mg Documented by: Phenazopyridine HCl (Urinary Pain Relief) 95 - 190 mg PO TID PRN PRN Reason: Dysuria Sodium Chloride (Saline Flush) 10 ml FLUSH ASDIRECTED PRN PRN Reason: Keep Vein Open Last Admin: 04/05/20 03:22 Dose: 10 ml Documented by: Trazodone HCl (Trazodone) 50 mg PO BEDTIME [facility] [place] Last Admin: 04/08/20 20:00 Dose: 50 mg Documented by: Discontinued Medications Atorvastatin Calcium (Lipitor) 20 mg PO ONETIME ONE Stop: 04/06/20 13:16 Last Admin: 04/06/20 14:59 Dose: 20 mg Documented by: Enoxaparin Sodium (Lovenox) 40 mg SUBCUT DAILY [facility] [place] Last Admin: 04/05/20 09:30 Dose: 40 mg Documented by: Fentanyl (Sublimaze) 50 mcg IM ONETIME ONE Stop: 04/05/20 02:27 Last Admin: 04/05/20 02:54 Dose: Not Given Documented by: Fentanyl (Sublimaze) 50 mcg IVPUSH ONETIME ONE Stop: 04/05/20 02:54 Last Admin: 04/05/20 02:43 Dose: 50 mcg Documented by: Fentanyl (Sublimaze) 100 mcg IVPUSH ONETIME ONE Stop: 04/05/20 11:14 Last Admin: 04/05/20 11:48 Dose: 100 mcg Documented by: Fentanyl (Sublimaze) 50 mcg IVPUSH Q2H PRN PRN Reason: Pain (severe 7-10) Last Admin: 04/06/20 10:20 Dose: 50 mcg Documented by: Fentanyl (Sublimaze) Confirm Administered Dose 100 mcg .ROUTE .STK-MED ONE Stop: 04/08/20 07:38 Furosemide (Lasix) 20 mg IVPUSH ONETIME ONE Stop: 04/05/20 22:40 Last Admin: 04/05/20 23:14 Dose: 20 mg Documented by: Gadoteridol (Prohance) 20 ml IV . DIRECTED [facility] Last Admin: 04/07/20 09:17 Dose: 20 ml Documented by: Heparin Sodium (Porcine) (Heparin Lock Flush 100 Units/Ml) Confirm Administered Dose 500 units .ROUTE .STK-MED ONE Stop: 04/08/20 08:18 Last Admin: 04/08/20 09:59 Dose: 500 units Documented by: Hydromorphone HCl (Dilaudid) 1 mg IVPUSH ONETIME ONE Stop: 04/05/20 03:10 Last Admin: 04/05/20 03:15 Dose: 1 mg Documented by: Hydromorphone HCl (Dilaudid) 1 mg IVPUSH ONETIME ONE Stop: 04/05/20 04:40 Last Admin: 04/05/20 04:47 Dose: 1 mg Documented by: Hydromorphone HCl (Dilaudid Material Clerk 15 Mg In Ns 30 Ml) 15 mg IV ASDIRECTED [facility]; Protocol Last Admin: 04/05/20 05:40 Dose: 15 mg Documented by: Lactated Ringer's (Ringers, Lactated) 1,000 mls @ 999 mls/hr IV ASDIRECTED [facility] Last Admin: 04/05/20 02:48 Dose: 999 mls/hr Documented by: Sodium Chloride (Normal Saline) 77 mls @ 3 mls/sec IV ONETIME ONE Stop: 04/05/20 03:43 Last Admin: 04/05/20 03:54 Dose: 3 mls/sec Documented by: Lactated Ringer's (Ringers, Lactated) 1,000 mls @ 999 mls/hr IV BOLUS ONE Stop: 04/05/20 05:32 Last Admin: 04/05/20 04:35 Dose: 999 mls/hr Documented by: Lactated Ringer's (Ringers, Lactated) 1,000 mls @ 999 mls/hr IV Q1H [facility] Stop: 04/05/20 10:59 Last Admin: 04/05/20 09:18 Dose: 999 mls/hr Documented by: Lactated Ringer's (Ringers, Lactated) 1,000 mls @ 125 mls/hr IV ASDIRECTED [facility] Last Admin: 04/05/20 11:42 Dose: 125 mls/hr Documented by: Lactated Ringer's (Ringers, Lactated) 1,000 mls @ 999 mls/hr IV Q1H [facility] Stop: 04/05/20 10:59 Last Admin: 04/05/20 10:27 Dose: 999 mls/hr Documented by: Lactated Ringer's (Ringers, Lactated) 1,000 mls @ 0 mls/hr IV ASDIRECTED [facility] Potassium Chloride 20 meq/ (Premix) 100 mls @ 50 mls/hr IV ONETIME ONE Stop: 04/08/20 18:59 Last Admin: 04/08/20 19:55 Dose: 50 mls/hr Documented by: Potassium Phosphate 15 mmol/ (Premix) 250 mls @ 125 mls/hr IV Q2H [facility] Stop: 04/08/20 16:59 Last Admin: 04/08/20 16:45 Dose: 125 mls/hr Documented by: Iopamidol (Isovue-300 (61%)) 100 ml IV . DIRECTED PRN PRN Reason: RADIOLOGY EXAM Last Admin: 04/05/20 03:54 Dose: 100 ml Documented by: Ketamine HCl (Ketalar) 20 mg IV ONETIME ONE Stop: 04/05/20 03:10 Last Admin: 04/05/20 03:18 Dose: 20 mg Documented by: Midazolam HCl (Versed 1 Mg/Ml) Confirm Administered Dose 2 mg .ROUTE .STK-MED ONE Stop: 04/08/20 07:38 Naloxone HCl (Narcan) 0.04 mg IVPUSH Q3M PRN PRN Reason: Respiratory Depression Ondansetron HCl (Zofran) 4 mg IVPUSH ONETIME ONE Stop: 04/05/20 02:27 Last Admin: 04/05/20 02:40 Dose: 4 mg Documented by: Ondansetron HCl (Zofran) 4 mg IVPUSH Q6H PRN PRN Reason: Nausea/Vomiting Phenazopyridine HCl (Urinary Pain Relief) 95 mg PO TID PRN PRN Reason: Dysuria Last Admin: 04/06/20 10:21 Dose: 95 mg Documented by: Propofol (Diprivan 20 Ml) Confirm Administered Dose 200 mg .ROUTE .STK-MED ONE Stop: 04/08/20 07:38 Sodium Chloride (Saline Flush) 10 ml FLUSH ONETIME PRN PRN Reason: PER RADIOLOGY PROTOCOL Last Admin: 04/05/20 03:54 Dose: 10 ml Documented by: - Exam General: Alert, Oriented, Cooperative, Moderate Distress Lungs: Clear to Auscultation, Normal Respiratory Effort Cardiovascular: Regular Rate, Regular Rhythm, No Murmurs GI/Abdominal Exam: Soft, No Organomegaly, Distended, Tender. No: Guarding, Rigid, Rebound Extremities: Non-Tender, No Pedal Edema Sepsis Event Note - Evaluation Sepsis Screening Result: No Definite Risk - Focused Exam Vital Signs: Vital Signs Temp Temp Pulse Resp BP Pulse Ox 04/09/20 10:47 97.3 F 88 16 141/84 H 93 L 04/09/20 06:48 97.3 F 95 16 148/89 H 92 L 04/09/20 03:00 97.3 F 106 H 16 147/79 H 97 - Problem List Review Problem List Initiated/Reviewed/Updated: Yes - My Orders Last 24 Hours: My Active Orders 04/09/20 Lunch Full Liquid Diet [DIET] 04/09/20 13:34 Convert IV to Saline Lock [OM.PC] Routine - Plan Plan:: ASSESSMENT AND PLAN - Acute pancreatitis-previous pain from admission has improved and is now back to baseline, lipase level is now within normal range -Symptomatic management with pain and nausea control -Repeat labs in the morning -Restarting atorvastatin to help with triglycerides -Surgical consultation appreciated Gastritis and duodenitis-likely primary cause of current pain. Evidence of inflammation in the remnant stomach as well as first part of the duodenum noted on CT scan -Protonix IV twice daily -Full liquid diet History of gastric bypass surgery-Dr. Sheehan is following. EGD did show evidence of inflammation -Continue Protonix -Surgical follow-up per Dr. Sheehan, EGD in a.m. Maintenance issues - - DVT prophylaxis -mechanical - GI prophylaxis -PPI - Nutrition -full liquid diet - Moon catheter -not indicated Disposition -I would anticipate discharge home after the hospital stay
[2020-04-09] MEDS: Potassium Chloride 20 MEQ in Premix Bag 1 BAG IV SCH ×2 (17:56→20:34)
[2020-04-09] MEDS: traZODone 50 MG Tab PO SCH (21:52)
[2020-04-10] MEDS: Magnesium Sulfate/Water 2 GM in Premix Bag 1 BAG IV SCH ×4 (04:09→22:46)
[2020-04-10] MEDS: Acetaminophen/HYDROcodone 325-5 MG Tab PO PRN ×4 (08:24→21:13)
[2020-04-10] MEDS: Levothyroxine 100 MCG, Levothyroxine 50 MCG, Levothyroxine 25 MCG PO SCH ×3 (08:24)
[2020-04-10] MEDS: atorvaSTATin 20 MG Tab PO SCH (08:25)
[2020-04-10] MEDS: DULoxetine 30 MG Cap PO SCH (08:25)
[2020-04-10] MEDS: Bisacodyl 5 MG Tab PO SCH ×2 (09:20→21:12)
[2020-04-10] MEDS: Docusate Sodium 100 MG Cap PO SCH ×2 (09:20→21:12)
[2020-04-10] MEDS: Pantoprazole 40 MG Vial IVPUSH SCH (10:57)
--- NOTE | 2020-04-10 12:29 | PCM.PN ---
- General Info Date of Service: 04/10/20 Subjective Update: Ms. Isbell has improved over the last 24 hours. She has been able to tolerate a full liquid diet without significant increase in her abdominal pain. Functional Status: Reports: Tolerating Diet, Ambulating, Urinating - Review of Systems General: Reports: No Symptoms Pulmonary: Reports: No Symptoms Cardiovascular: Reports: No Symptoms Gastrointestinal: Reports: Abdominal Pain. Denies: Constipation, Diarrhea, Difficulty Swallowing, Nausea, Vomiting Genitourinary: Reports: No Symptoms - Patient Data Vitals - Most Recent: Last Vital Signs Temp 97.0 F 04/10/20 11:02 Pulse 85 04/10/20 11:02 Resp 16 04/10/20 11:02 BP 147/93 H 04/10/20 11:02 Pulse Ox 94 L 04/10/20 11:02 Weight - Most Recent: 179 lb 6.4 oz I&O - Last 24 Hours: Intake & Output 04/09/20 04/10/20 04/10/20 22:59 06:59 14:59 Intake Total 1390 529 120 Output Total 1050 2050 600 Balance 340 -1521 -480 Lab Results Last 24 Hours: Laboratory Results - last 24 hr 04/10/20 04/10/20 Range/Units 04:00 04:00 WBC 7.5 (4.5-11.0) K/uL RBC 3.21 L (3.30-5.50) M/uL Hgb 8.7 L (12.0-15.0) g/dL Hct 29.6 L (36.0-48.0) % MCV 92 (80-98) fL MCH 27 (27-31) pg MCHC 29 L (32-36) % Plt Count 198 (150-400) K/uL Sodium 137 L (140-148) mmol/L Potassium 4.2 (3.6-5.2) mmol/L Chloride 98 L (100-108) mmol/L Carbon Dioxide 31 (21-32) mmol/L Anion Gap 12.2 (5.0-14.0) mmol/L BUN 1 L D (7-18) mg/dL Creatinine 0.6 (0.6-1.0) mg/dL Est Cr Clr Drug Dosing 87.95 mL/min Estimated GFR (MDRD) > 60 (>60) Glucose 179 H (74-106) mg/dL Calcium 8.1 L (8.5-10.1) mg/dL Phosphorus 2.8 (2.5-4.9) mg/dL Total Bilirubin 0.4 (0.2-1.0) mg/dL AST 18 (15-37) U/L ALT 19 (12-78) U/L Alkaline Phosphatase 96 (46-116) U/L Total Protein 5.9 L (6.4-8.2) g/dL Albumin 2.8 L (3.4-5.0) g/dL Globulin 3.1 (2.3-3.5) g/dL Albumin/Globulin Ratio 0.9 L (1.2-2.2) Amylase 39 (25-115) U/L Lipase 485 H (73-393) U/L Tl Results Last 24 Hours: Microbiology 04/08/20 09:02 CLOtest - Final Stomach NEGATIVE CLOTEST REFERENCE RANGE: NEGATIVE Med Orders - Current: Current Medications Hydrocodone Bitart/Acetaminophen ([place] 325-5 Mg) 1 - 2 tab PO Q4H PRN PRN Reason: Pain Last Admin: 04/10/20 08:24 Dose: 2 tab Documented by: Atorvastatin Calcium (Lipitor) 20 mg PO DAILY [facility] Last Admin: 04/10/20 08:25 Dose: 20 mg Documented by: Bisacodyl (Dulcolax) 10 mg PO BID [facility] Last Admin: 04/10/20 09:20 Dose: 10 mg Documented by: Diphenhydramine HCl (Benadryl) 25 mg IVPUSH Q6H PRN PRN Reason: Itching Diphenhydramine HCl (Benadryl) 25 mg PO Q6H PRN PRN Reason: Itching Docusate Sodium (Colace) 100 mg PO BID [facility] Last Admin: 04/10/20 09:20 Dose: 100 mg Documented by: Duloxetine HCl (Cymbalta) 30 mg PO DAILY [facility] Last Admin: 04/10/20 08:25 Dose: 30 mg Documented by: Hydroxyzine HCl (Vistaril) 100 mg IM Q4H PRN PRN Reason: Pain Last Admin: 04/06/20 06:23 Dose: 100 mg Documented by: Magnesium Sulfate 2 gm/ Premix 50 mls @ 25 mls/hr IV Q6H [facility] Stop: 04/11/20 06:59 Last Admin: 04/10/20 10:41 Dose: 25 mls/hr Documented by: Albumin Human (Albumin 25%) 25 gm in 100 mls @ 25 mls/hr IV Q24H [facility] Stop: 04/10/20 18:59 Last Admin: 04/09/20 14:58 Dose: 25 mls/hr Documented by: Albumin Human (Albumin 25%) 25 gm in 100 mls @ 25 mls/hr IV Q24H [facility] Stop: 04/10/20 14:59 Last Admin: 04/10/20 10:41 Dose: 25 mls/hr Documented by: Imipramine HCl (Imipramine Hcl) 50 mg PO BEDTIME [facility] Last Admin: 04/09/20 21:52 Dose: 50 mg Documented by: Levothyroxine Sodium 100 mcg/Levothyroxine Sodium 50 mcg/Levothyroxine Sodium 25 mcg 175 mcg PO ACBREAKFAST [facility] Last Admin: 04/10/20 08:24 Dose: 175 mcg Documented by: Lorazepam (Ativan) 0.5 mg IVPUSH Q4H PRN PRN Reason: Nausea/Vomiting Last Admin: 04/06/20 21:34 Dose: 0.5 mg Documented by: Ondansetron HCl (Zofran) 4 mg IVPUSH Q4H PRN PRN Reason: Nausea/Vomiting Last Admin: 04/06/20 06:50 Dose: 4 mg Documented by: Pantoprazole Sodium (Protonix) 40 mg PO BIDAC [facility] Phenazopyridine HCl (Urinary Pain Relief) 95 - 190 mg PO TID PRN PRN Reason: Dysuria Sodium Chloride (Saline Flush) 10 ml FLUSH ASDIRECTED PRN PRN Reason: Keep Vein Open Last Admin: 04/05/20 03:22 Dose: 10 ml Documented by: Trazodone HCl (Trazodone) 50 mg PO BEDTIME [facility] Last Admin: 04/09/20 21:52 Dose: 50 mg Documented by: Discontinued Medications Atorvastatin Calcium (Lipitor) 20 mg PO ONETIME ONE Stop: 04/06/20 13:16 Last Admin: 04/06/20 14:59 Dose: 20 mg Documented by: Enoxaparin Sodium (Lovenox) 40 mg SUBCUT DAILY [facility] Last Admin: 04/05/20 09:30 Dose: 40 mg Documented by: Fentanyl (Sublimaze) 50 mcg IM ONETIME ONE Stop: 04/05/20 02:27 Last Admin: 04/05/20 02:54 Dose: Not Given Documented by: Fentanyl (Sublimaze) 50 mcg IVPUSH ONETIME ONE Stop: 04/05/20 02:54 Last Admin: 04/05/20 02:43 Dose: 50 mcg Documented by: Fentanyl (Sublimaze) 100 mcg IVPUSH ONETIME ONE Stop: 04/05/20 11:14 Last Admin: 04/05/20 11:48 Dose: 100 mcg Documented by: Fentanyl (Sublimaze) 50 mcg IVPUSH Q2H PRN PRN Reason: Pain (severe 7-10) Last Admin: 04/06/20 10:20 Dose: 50 mcg Documented by: Fentanyl (Sublimaze) Confirm Administered Dose 100 mcg .ROUTE .STK-MED ONE Stop: 04/08/20 07:38 Fentanyl Citrate (Fentanyl In Ns 20 Mcg/Ml 30 Ml [employer] Technical Officer) 0 mcg IV ASDIRECTED PRN; Protocol PRN Reason: Pain Last Admin: 04/09/20 18:51 Dose: 600 mcg Documented by: Furosemide (Lasix) 20 mg IVPUSH ONETIME ONE Stop: 04/05/20 22:40 Last Admin: 04/05/20 23:14 Dose: 20 mg Documented by: Gadoteridol (Prohance) 20 ml IV . DIRECTED [facility] Last Admin: 04/07/20 09:17 Dose: 20 ml Documented by: Heparin Sodium (Porcine) (Heparin Lock Flush 100 Units/Ml) Confirm Administered Dose 500 units .ROUTE .STK-MED ONE Stop: 04/08/20 08:18 Last Admin: 04/08/20 09:59 Dose: 500 units Documented by: Hydromorphone HCl (Dilaudid) 1 mg IVPUSH ONETIME ONE Stop: 04/05/20 03:10 Last Admin: 04/05/20 03:15 Dose: 1 mg Documented by: Hydromorphone HCl (Dilaudid) 1 mg IVPUSH ONETIME ONE Stop: 04/05/20 04:40 Last Admin: 04/05/20 04:47 Dose: 1 mg Documented by: Hydromorphone HCl (Dilaudid [employer] Controls Technical Officer 15 Mg In Ns 30 Ml) 15 mg IV ASDIRECTED [facility]; Protocol Last Admin: 04/05/20 05:40 Dose: 15 mg Documented by: Lactated Ringer's (Ringers, Lactated) 1,000 mls @ 999 mls/hr IV ASDIRECTED [facility] Last Admin: 04/05/20 02:48 Dose: 999 mls/hr Documented by: Sodium Chloride (Normal Saline) 77 mls @ 3 mls/sec IV ONETIME ONE Stop: 04/05/20 03:43 Last Admin: 04/05/20 03:54 Dose: 3 mls/sec Documented by: Lactated Ringer's (Ringers, Lactated) 1,000 mls @ 999 mls/hr IV BOLUS ONE Stop: 04/05/20 05:32 Last Admin: 04/05/20 04:35 Dose: 999 mls/hr Documented by: Lactated Ringer's (Ringers, Lactated) 1,000 mls @ 999 mls/hr IV Q1H [facility] Stop: 04/05/20 10:59 Last Admin: 04/05/20 09:18 Dose: 999 mls/hr Documented by: Lactated Ringer's (Ringers, Lactated) 1,000 mls @ 125 mls/hr IV ASDIRECTED [facility] Last Admin: 04/05/20 11:42 Dose: 125 mls/hr Documented by: Lactated Ringer's (Ringers, Lactated) 1,000 mls @ 999 mls/hr IV Q1H [facility] Stop: 04/05/20 10:59 Last Admin: 04/05/20 10:27 Dose: 999 mls/hr Documented by: Lactated Ringer's (Ringers, Lactated) 1,000 mls @ 0 mls/hr IV ASDIRECTED [facility] Potassium Chloride 20 meq/ (Premix) 100 mls @ 50 mls/hr IV ONETIME ONE Stop: 04/08/20 18:59 Last Admin: 04/08/20 19:55 Dose: 50 mls/hr Documented by: Potassium Phosphate 15 mmol/ (Premix) 250 mls @ 125 mls/hr IV Q2H [facility] Stop: 04/08/20 16:59 Last Admin: 04/08/20 16:45 Dose: 125 mls/hr Documented by: Potassium Phosphate 15 mmol/ (Premix) 250 mls @ 84 mls/hr IV Q3H [facility] Stop: 04/09/20 16:59 Last Admin: 12/09/20 14:56 Dose: 84 mls/hr Documented by: Potassium Chloride 20 meq/ (Premix) 100 mls @ 50 mls/hr IV Q2H [facility] Stop: 04/09/20 21:29 Last Admin: 04/09/20 20:34 Dose: 50 mls/hr Documented by: Iopamidol (Isovue-300 (61%)) 100 ml IV . DIRECTED PRN PRN Reason: RADIOLOGY EXAM Last Admin: 04/05/20 03:54 Dose: 100 ml Documented by: Ketamine HCl (Ketalar) 20 mg IV ONETIME ONE Stop: 04/05/20 03:10 Last Admin: 04/05/20 03:18 Dose: 20 mg Documented by: Ketorolac Tromethamine (Toradol) 30 mg IVPUSH Q6H PRN PRN Reason: Pain (moderate 4-6) Stop: 04/10/20 11:14 Last Admin: 04/06/20 13:02 Dose: 30 mg Documented by: Midazolam HCl (Versed 1 Mg/Ml) Confirm Administered Dose 2 mg .ROUTE .STK-MED ONE Stop: 04/08/20 07:38 Naloxone HCl (Narcan) 0.04 mg IVPUSH Q3M PRN PRN Reason: Respiratory Depression Naloxone HCl (Narcan) 0.1 mg IV ASDIRECTED PRN PRN Reason: decreased respiratory rate Ondansetron HCl (Zofran) 4 mg IVPUSH ONETIME ONE Stop: 04/05/20 02:27 Last Admin: 04/05/20 02:40 Dose: 4 mg Documented by: Ondansetron HCl (Zofran) 4 mg IVPUSH Q6H PRN PRN Reason: Nausea/Vomiting Pantoprazole Sodium (Protonix Iv) 40 mg IVPUSH Q12H [facility] Last Admin: 04/10/20 10:57 Dose: Not Given Documented by: Phenazopyridine HCl (Urinary Pain Relief) 95 mg PO TID PRN PRN Reason: Dysuria Last Admin: 04/06/20 10:21 Dose: 95 mg Documented by: Propofol (Diprivan 20 Ml) Confirm Administered Dose 200 mg .ROUTE .STK-MED ONE Stop: 04/08/20 07:38 Sodium Chloride (Saline Flush) 10 ml FLUSH ONETIME PRN PRN Reason: PER RADIOLOGY PROTOCOL Last Admin: 04/05/20 03:54 Dose: 10 ml Documented by: - Exam General: Alert, Oriented, Mild Distress Lungs: Clear to Auscultation, Normal Respiratory Effort Cardiovascular: Regular Rate, Regular Rhythm, No Murmurs GI/Abdominal Exam: Soft, No Organomegaly, Tender. No: Distended, Guarding, Rigid, Rebound Extremities: Non-Tender, No Pedal Edema Sepsis Event Note - Evaluation Sepsis Screening Result: No Definite Risk - Focused Exam Vital Signs: Vital Signs Temp Pulse Resp BP Pulse Ox 04/10/20 11:02 97.0 F 85 16 147/93 H 94 L 04/10/20 07:15 94 L 04/10/20 06:52 97.0 F 84 16 160/89 H 97 04/10/20 04:00 97.2 F 84 16 153/95 H 96 04/10/20 01:00 93 L - Problem List Review Problem List Initiated/Reviewed/Updated: Yes - My Orders Last 24 Hours: My Active Orders 04/09/20 13:34 Convert IV to Saline Lock [OM.PC] Routine - Plan Plan:: ASSESSMENT AND PLAN - Acute pancreatitis-resolved -Symptomatic management with pain and nausea control -Restarting atorvastatin to help with triglycerides -Surgical consultation appreciated Gastritis and duodenitis-likely primary cause of current pain. Evidence of inflammation in the remnant stomach as well as first part of the duodenum noted on CT scan -Protonix po twice daily -Step 4 diet History of gastric bypass surgery-Dr. Sheehan is following. EGD did show evidence of inflammation -Continue Protonix twice daily -Surgical follow-up per Dr. Sheehan, EGD in a.m. Maintenance issues - - DVT prophylaxis -mechanical - GI prophylaxis -PPI - Nutrition -step 4 diet - Moon catheter -not indicated Disposition -I would anticipate discharge home tomorrow
--- NOTE | 2020-04-10 14:29 | PN ---
DATE OF SERVICE: 04/10/2020 SUBJECTIVE: Radha states that the pain from pancreatitis has lessened, but she continues to have the burning which she always has. She does look better. OBJECTIVE: VITAL SIGNS: Have been stable. Afebrile. Oral intake 1500 and urine output 2975. HEENT: Negative. NECK: Supple. HEART: Regular rate and rhythm. LUNGS: Clear. ABDOMEN: Less tender. EXTREMITIES: Without peripheral edema. ASSESSMENT: Pancreatitis. Esophagogastroduodenoscopy and placement of central line on 04/08/2020. PLAN: 1. Step 4 gastric bypass. 2. Discontinue TWISTER TENDER. 3. Summit 5/325 mg 1 to 2 every 4 hours p.r.n. pain. 4. Discontinue Tylenol. 5. H pylori breath test. 6. Check CBC, CMP, phos, amylase and lipase in a.m. 7. Plan discharge in a.m. with followup with Gonzales Sheehan MD, on 04/20/[address] scan prior to that appointment. 8. Start Colace 100 mg b.i.d. orally and Dulcolax tablets 10 mg b.i.d. until the patient has bowel movement. 9. We will evaluate p.r.n. or in a.m. Leny Harmon PA-C /[id number]
[2020-04-10] MEDS: Pantoprazole 40 MG Tab.CR PO SCH (17:12)
[2020-04-10] MEDS: Sodium Chloride 0.9% 10 ML Syringe FLUSH PRN (19:57)
[2020-04-10] MEDS: traZODone 50 MG Tab PO SCH (21:13)
[2020-04-11] MEDS: Acetaminophen/HYDROcodone 325-5 MG Tab PO PRN ×2 (01:10→05:12)
[2020-04-11] MEDS: Magnesium Sulfate/Water 2 GM in Premix Bag 1 BAG IV SCH (05:13)
[2020-04-11] MEDS: Pantoprazole 40 MG Tab.CR PO SCH (07:28)
[2020-04-11] MEDS: Levothyroxine 100 MCG, Levothyroxine 50 MCG, Levothyroxine 25 MCG PO SCH ×3 (07:28)
[2020-04-11] MEDS: Bisacodyl 5 MG Tab PO SCH (08:04)
[2020-04-11] MEDS: Docusate Sodium 100 MG Cap PO SCH (08:04)
[2020-04-11] MEDS: DULoxetine 30 MG Cap PO SCH (08:04)
[2020-04-11] MEDS: atorvaSTATin 20 MG Tab PO SCH (08:04)
--- NOTE | 2020-04-11 13:00 | DISCH ---
DIAGNOSES: 1. Pancreatitis. 2. Chronic abdominal pain. 3. Davis-en-Y gastric bypass surgery. 4. Type 2 diabetes mellitus. 5. General anxiety disorder. DISCHARGE DIAGNOSES: 1. Pancreatitis, esophagogastroduodenoscopy, 04/08/2020. Surgeon: Gonazles Sheehan MD, with placement of Mills catheter. 2. Chronic abdominal pain. 3. Status post Davis-en-Y gastric bypass surgery, unspecified surgical malabsorption. 4. B12 deficiency. HISTORY: Radha Isbell was admitted to the hospital with severe pain through the emergency room on 04/05/2020. She was found to have pancreatitis. Blood sugar was 304. Her triglycerides 222. Lipase was 2521. She was admitted to the hospital for pain control. She remained n.p.o., was treated with a fentanyl TECHNOLOGY PROGRAM MANAGER. On 04/08, an MRCP was obtained, and it was negative for any bile duct stone. She did have an EGD on 04/08/2020, which was negative. Throughout her hospitalization, labs were monitored. Pain was managed with a fentanyl TECHNOLOGY PROGRAM MANAGER until 04/10. She was started on a Step 4 diet. Changed to Warren 1 to 2 every 4 hours. She did have an H pylori breath test, results are pending. She was able to be discharged to home on 04/11/2020. Potassium was 4.1, glucose 246, and total protein 6.1. Amylase was 38, lipase did bump up a little bit to 641. She reports pain was controlled and states that she is back now to her chronic overall burning abdominal pain. Radha was released to home on 04/11/2020. REVIEW OF SYSTEMS: GENERAL: No fever, chills, or night-sweats. HEAD: Negative for headache, dizziness, ear pain. NECK: Negative. CHEST: No chest pain. No fast irregular heart beat. LUNGS: No cough. ABDOMEN: Pain, generalized burning, mid epigastric and upper abdomen. Oral intake was 815. Urine output was 2875. EXTREMITIES: Without peripheral edema. Denies pain. NEUROLOGIC: No headaches, dizziness, loss of coordination. PSYCHIATRIC: Negative for insomnia, depression, or anxiety. SKIN: Without rash. Remainder of review of systems negative for any pertinent positives or negatives. OBJECTIVE: GENERAL: Radha Isbell is a pleasant 49-year-old female. VITAL SIGNS: Height is 5 feet 1.8 inches. Weight is 179 pounds. TPR is 97.5, 80, 16; blood pressure 153/91. HEENT: Negative. NECK: Supple. HEART: Regular rate and rhythm. LUNGS: Clear. ABDOMEN: Soft and nontender. EXTREMITIES: Without peripheral edema. DISPOSITION: Discharged to home. CONDITION: Stable and improving. FOLLOWUP: Appointment with Leny Harmon PA-C, and Gonzales Sheehan MD, on 04/16/2020 at 10 a.m. She is to have a CT scan prior to that appointment of abdomen and pelvis with IV and oral contrast and to follow up into clinic after that. She is to also get blood work drawn prior to that appointment. CBC, CMP, mag, phos, amylase, and lipase. MEDICATIONS: Warren 5/325 mg 1 to 2 tablets every 6 hours p.r.n. pain, #40, and she is to resume her home medications. DIET: Step 4 gastric bypass diet. Drink 8 to 10 glasses of water a day. ACTIVITY: As tolerated. Do not drive on pain medication. SHOWER/BATHING: May shower. DISCHARGE INSTRUCTIONS: Notify provider if any fever, increased pain, nausea, or vomiting. /[id number]
[2020-04-11 15:13] LABS: H. PYLORI BREATH TEST Negative (Negative)
--- NOTE | 2020-04-16 15:16 | OR ---
DATE OF PROCEDURE: 04/08/2020 SURGEON: Gonzales Sheehan MD PREOPERATIVE DIAGNOSES: 1. Limited peripheral venous access. 2. Rule out inflammation involving gastric pouch and/or adjacent Davis limb causing underlying pancreatitis. POSTOPERATIVE DIAGNOSES: 1. Peripheral venous access. 2. Minimal patchy pouch gastritis. PROCEDURES PERFORMED: 1. Insertion of left subclavian vein triple-lumen catheter ([id number]). 2. Upper gastrointestinal endoscopy with biopsies of gastric pouch for CLOtest ([id number]). ANESTHESIA: Local plus IV sedation. INDICATION FOR PROCEDURE: The patient was admitted with acute pancreatitis. At this point, it is not clear in terms of the etiology. She does have a history of some ulcers and erosions in her gastric pouch and adjacent Davis limb, and to ascertain whether or not that may be contributing to her pancreatitis, need to undergo an upper endoscopy with biopsies as indicated. She also has very limited peripheral venous access and will be requiring IV treatment for the next several days. The plan will be to proceed with insertion of central line. The potential risks of the procedure including bleeding, infection, pneumohemothorax, possible vascular injury as well as possible perforation during the course of the upper endoscopy were gone over and the patient wishes to proceed. DETAILS OF PROCEDURE: The patient was taken to the operating room, placed initially in the supine position. IV sedation was administered, after which the upper chest and neck areas were prepped and draped. The left subclavian area was anesthetized with 1% lidocaine and the guidewire passed into the subclavian vein and from there into the superior vena cava. Over this, the triple-lumen catheter was positioned, good in and outflow was noted through the catheter. Ports were flushed with heparinized saline, catheter was sutured to skin with some 3-0 silk stitch. Subsequent chest x-ray showed no evident complications. The patient now placed in a left lateral decubitus position. The upper GI endoscope was passed orally through the length of esophagus into the gastric pouch and from there through the gastrojejunostomy roughly 20 cm into the Davis limb. Overall, the findings were essentially normal with there being some very minimal pouch gastritis would be the cause to have an underlying pancreas, although per the CT reports, it is possible that we are dealing with some ulcer disease in the bypassed portion of the stomach or duodenum, which is not visible on today's exam. Biopsies were obtained from the gastric pouch, sent for CLOtest for H. pylori. Minimal bleeding from the biopsy site was seen and the procedure concluded. The patient was taken to the recovery room in satisfactory condition. Gonzales Sheehan MD /[id number]
== END 2020-04-11 08:51 | disposition home or self-care (01) | DRG 439 ==
LOC: JP.ED 01:43 → JP.MS 04:52
PROVIDERS: ADMIT Family Medicine; ATTEND Hospitalist
PROC: 0DB68ZX Excision of Stomach, Via Natural or Artificial Opening Endoscopic, Diagnostic (ICD-10-PCS; principal; 2020-04-08)
PROC: 02HV33Z Insertion of Infusion Device into Superior Vena Cava, Percutaneous Approach (ICD-10-PCS; 2020-04-08)
DX: K85.90 Acute pancreatitis without necrosis or infection, unspecified (principal); K90.9 Intestinal malabsorption, unspecified; E53.8 Deficiency of other specified B group vitamins; K29.70 Gastritis, unspecified, without bleeding; G89.29 Other chronic pain; R10.9 Unspecified abdominal pain; M79.7 Fibromyalgia; M81.0 Age-related osteoporosis without current pathological fracture; G43.909 Migraine, unspecified, not intractable, without status migrainosus; F32.9 Major depressive disorder, single episode, unspecified; E11.9 Type 2 diabetes mellitus without complications; D50.9 Iron deficiency anemia, unspecified; I10 Essential (primary) hypertension; E78.5 Hyperlipidemia, unspecified; K29.80 Duodenitis without bleeding; K21.9 Gastro-esophageal reflux disease without esophagitis; E78.00 Pure hypercholesterolemia, unspecified; Z79.899 Other long term (current) drug therapy; Z79.890 Hormone replacement therapy; Z88.1 Allergy status to other antibiotic agents; Z88.5 Allergy status to narcotic agent; Z90.49 Acquired absence of other specified parts of digestive tract; Z87.11 Personal history of peptic ulcer disease; Z87.442 Personal history of urinary calculi; Z98.84 Bariatric surgery status; Z98.51 Tubal ligation status; F41.1 Generalized anxiety disorder
CPT/HCPCS: 36415; 74177; 74183; 74183-26; 80053; 80061; 80307; 81001; 82150; 82607; 82728; 82746; 82962; 83013; 83605; 83615; 83690; 83735; 84100; 84443; 84478; 84484; 85025; 85027; 87081; 94762; 96374; 96375; 96376; 99231; 99232; 99284; 99285-25; A9270-GY; A9579; C9113; J1170; J1642; J1650; J1885; J1940; J2060; J2250; J2405; J2704; J3010; J3410; J3475; J3480; J7120; P9047; Q9967; U0002

== ENCOUNTER 2020-05-18 04:50 | Observation (INO) | payer MEDICAID ==
[2020-05-18] MEDS ORDERED: fentaNYL 100 MCG/2 ML SDV IVPUSH ONE ×2 (05:18→07:41)
[2020-05-18] MEDS ORDERED: Sodium Chloride 0.9% 10 ML Syringe FLUSH PRN ×3 (05:18→10:21)
[2020-05-18] MEDS ORDERED: Ondansetron 4 MG/2 ML SDV IVPUSH ONE (05:18)
[2020-05-18] MEDS ORDERED: Sodium Chloride 0.9% 1,000 ML IV SCH (05:30)
--- NOTE | 2020-05-18 05:34 | EDM.PDOC ---
<Filippo Elmore - Last Filed: 05/18/20 07:03> ED HPI GENERAL MEDICAL PROBLEM - General Chief Complaint: Abdominal Pain Stated Complaint: ABD PAIN Time Seen by Provider: 05/18/20 05:16 Source of Information: Reports: Patient, Old Records - History of Present Illness INITIAL COMMENTS - FREE TEXT/NARRATIVE: Radha is a 49-year-old female presenting to the ED for evaluation of worsening epigastric pain, nausea, and vomiting. Patient has been dealing with acute pancreatitis for the last several weeks and has been managed as an outpatient with clear liquid diet. She was seen on Tuesday and the clinic and was given IV fluids, had her Nexium switched to Protonix and the addition of Carafate to her medications. She was also given Tylenol 3 for pain control. She reports that the codeine is causing an adverse reaction similar to her reaction to hydrocodone, oxycodone, tramadol, and morphine. As result, her pain is much more significant. The patient had been drinking Pedialyte, and eating freezing pops, and drinking Gatorade resulting in hyperglycemia. She subsequently discontinue that practice and is now consuming Gatorade G2 resulting in better glycemic control with her blood glucose ranging between 80 and 100. She still has very significant abdominal bloating with excessive flatus. The patient is status post Davis-en-Y and cholecystectomy with the Davis-en-Y done in [place] in 2011. The etiology of her pancreatitis is likely idiopathic. The patient was instructed by her primary care provider to come to the ER should she have worsening of symptoms. She denies any fever or chills, cough or shortness of breath, sore throat, headache, body aches, loss of taste or smell. The patient was hospitalized on 04/05/2020 for acute pancreatitis where she underwent an EGD that was unremarkable. She did have a Mills catheter placed at that time but that subsequently been discontinued. She was hospitalized again in the middle of the month with recurrence of her pancreatitis. This would be the third bout in roughly 45 days. - Related Data Allergies Allergy/AdvReac Type Severity Reaction Status Date / Time acetaminophen Allergy Abdominal Verified 05/18/20 05:01 [From Tylenol-Codeine] Pain cephalexin Allergy Rash Verified 05/18/20 05:00 clarithromycin [From Biaxin] Allergy Hives Verified 05/18/20 05:00 codeine Allergy Abdominal Verified 05/18/20 05:01 [From Tylenol-Codeine] Pain morphine AdvReac Abdominal Verified 05/18/20 05:00 Pain tramadol AdvReac Abdominal Verified 05/18/20 05:00 Cramps Home Meds: Home Meds Imipramine HCl 50 mg PO BEDTIME 10/22/17 [History] Iron,Carbonyl/Vit C/Vit B12/Fa [Fe C Plus] 1 tab PO DAILY 10/22/17 [History] Levothyroxine 175 mcg PO DAILY 10/22/17 [History] Lisinopril 10 mg PO DAILY 10/22/17 [History] atorvaSTATin [Lipitor] 20 mg PO DAILY 10/22/17 [History] Cholecalciferol (Vitamin D3) [Vitamin D] 1,000 units PO DAILY 01/30/19 [History] Ferrous Sulfate [Ferosul] 1 tab PO DAILY 01/30/19 [History] Methenamine Hippurate [Hiprex] 1 tab PO BID 01/30/19 [History] SUMAtriptan [Imitrex] 1 tab PO DAILY PRN 01/30/19 [History] ondansetron HCL [Ondansetron] 1 tab PO TID PRN 01/30/19 [History] traZODone HCl [Trazodone HCl] 1 tab PO BEDTIME 01/30/19 [History] Cyanocobalamin (Vitamin B12) [Vitamin B12] 1 injection IM Q30D 04/05/20 [History] DULoxetine [Cymbalta] 30 mg PO DAILY 04/05/20 [History] Pantoprazole [ProTONIX] 40 mg PO BID 05/18/20 [History] Past Medical History Cardiovascular History: Reports: High Cholesterol, Hypertension Gastrointestinal History: Reports: GERD, PUD Genitourinary History: Reports: Pyelonephritis, Renal Calculus, UTI, Recurrent Other Genitourinary History: infected cyst on one kidney and stone in other [employer] History: Reports: Musculoskeletal History: Reports: Fibromyalgia, Osteoporosis Neurological History: Reports: Migraines Psychiatric History: Reports: Depression Endocrine/Metabolic History: Reports: Diabetes, Type II Hematologic History: Reports: Anemia, B12 Deficiency, Iron Deficiency - Infectious Disease History Infectious Disease History: Reports: C-Difficile - Past Surgical History HEENT Surgical History: Reports: Tonsillectomy GI Surgical History: Reports: Bariatric Procedure, Cholecystectomy, Colonoscopy, EGD, Esophageal Dilatation Female Surgical History: Reports: Tubal Ligation Social & Family History - Tobacco Use Tobacco Use Status *Q: Never Tobacco User - Caffeine Use Caffeine Use: Reports: Soda ED ROS GENERAL - Review of Systems Review Of Systems: See Below Constitutional: Reports: Decreased Appetite HEENT: Reports: No Symptoms Respiratory: Reports: No Symptoms Cardiovascular: Reports: No Symptoms Endocrine: Reports: High Glucose GI/Abdominal: Reports: Abdominal Pain, Diarrhea, Decreased Appetite, Distension, Flatus, Nausea, Vomiting : Reports: No Symptoms Musculoskeletal: Reports: No Symptoms Skin: Reports: No Symptoms Neurological: Reports: No Symptoms Psychiatric: Reports: Anxiety Hematologic/Lymphatic: Reports: No Symptoms Immunologic: Reports: No Symptoms ED EXAM, GI/ABD - Physical Exam Exam: See Below Exam Limited By: No Limitations General Appearance: Alert, Moderate Distress Eyes: Bilateral: EOMI Throat/Mouth: Normal Inspection, Normal Lips Head: Atraumatic, Normocephalic Neck: Normal Inspection, Supple, Non-Tender, Full Range of Motion Respiratory/Chest: No Respiratory Distress, Lungs Clear, Normal Breath Sounds Cardiovascular: Normal Peripheral Pulses, No Edema, No JVD, No Murmur, Tachycardia GI/Abdominal Exam: Distended (With tympany to percussion throughout the upper abdomen), Guarding, Tender (Diffuse abdominal tenderness but especially in the epigastric and left upper quadrant), Abnormal Bowel Sounds (Hyperactive bowel sounds). No: Rebound Back Exam: Normal Inspection, Full Range of Motion Extremities: Normal Inspection, Normal Range of Motion, Non-Tender, No Pedal Edema Neurological: Alert, Oriented, Normal Cognition, No Motor/Sensory Deficits Psychiatric: Anxious Skin Exam: Warm, Dry, Intact, Normal Color Lymphatic: No Adenopathy Course - Re-Assessments/Exams Free Text/Narrative Re-Assessment/Exam: 05/18/20 06:30 I discussed the case with Dr. Brock who recommended I contact Dr. Sheehan for input on what to do with this patient. My concern is that the patient has significantly elevated transaminases that were previously normal last month. Her bilirubin is normal lowering the likelihood that this is due to obstruction. It certainly could be chemically induced from either Tylenol or a statin. We did repeat the CT of the abdomen and pelvis with contrast showing some residual inflammation of the duodenum secondary to the subacute pancreatitis. The patient's lipase is now normal indicating continued improvement in the pancreatic inflammation. The CT also revealed a copious amount of colonic stool and flatus which is likely part to blame for her ongoing moderate to severe abdominal pain, nausea and vomiting. What does not make sense as the patient also complains of significant diarrhea, however, there appears to be formed stool throughout the colon. The cecum is actually extending down into the pelvis. In discussion with Dr. Sheehan, he would like the hospitalist to admit the patient and consult him for management. As the hospitalist service is changing over this morning to Dr. Melo at 8 AM, I will have Dr. Officer contact Dr. Melo to arrange for the admission. Dr. Sheehan did recommend saline enemas and/or use of azithromycin 125 mg IV every 12 as a prokinetic to help move the bowels along. Departure - Departure Time of Disposition: 06:39 Disposition: Admitted As Inpatient 65 Condition: Fair Clinical Impression: Generalized abdominal pain, Excessive flatus, Elevated transaminase level, History of Davis-en-Y gastric bypass Pancreatitis, acute Qualifiers: Pancreatitis type: idiopathic Acute pancreatitis complication: no infection or necrosis Qualified Code(s): K85.00 - Idiopathic acute pancreatitis without necrosis or infection - Discharge Information Referrals: PCP,None [Primary Care Provider] - Forms: ED Department Discharge Care Plan Goals: I discussed the case with Dr. Sheehan who recommended the patient be admitted to the hospitalist service and that he be consulted. I will contact Dr. Melo at [phone] hours to arrange for admission of the patient. Sepsis Event Note (ED) - Evaluation Sepsis Screening Result: No Definite Risk - Problem List & Annotations (1) Elevated transaminase level SNOMED Code(s): 780086332, 805590980 Code(s): R74.01 - ELEVATION OF LEVELS OF LIVER TRANSAMINASE LEVELS Status: Acute Priority: High Current Visit: Yes (2) Excessive flatus SNOMED Code(s): 60630543 Code(s): R14.3 - FLATULENCE Status: Acute Priority: High Current Visit: Yes (3) Generalized abdominal pain SNOMED Code(s): 346780571 Code(s): R10.84 - GENERALIZED ABDOMINAL PAIN Status: Acute Priority: High Current Visit: Yes (4) History of Davis-en-Y gastric bypass SNOMED Code(s): 290690364 Code(s): Z98.84 - BARIATRIC SURGERY STATUS Status: Acute Priority: High Current Visit: Yes (5) Pancreatitis, acute SNOMED Code(s): 868891261 Code(s): K85.90 - ACUTE PANCREATITIS WITHOUT NECROSIS OR INFECTION, UNSP Status: Acute Priority: High Current Visit: Yes Qualifiers: Pancreatitis type: idiopathic Acute pancreatitis complication: no infection or necrosis Qualified Code(s): K85.00 - Idiopathic acute pancreatitis without necrosis or infection (6) DAGOBERTO (generalized anxiety disorder) SNOMED Code(s): 60575207 Code(s): F41.1 - GENERALIZED ANXIETY DISORDER Status: Chronic Priority: Low Current Visit: No - Problem List Review Problem List Initiated/Reviewed/Updated: Yes <OfficerMark - Last Filed: 05/18/20 08:40> Course - Vital Signs Last Recorded V/S: Last Vital Signs Temp 99 F 05/18/20 07:56 Pulse 109 H 05/18/20 07:56 Resp 16 05/18/20 07:56 BP 126/85 05/18/20 07:56 Pulse Ox 98 05/18/20 07:56 - Orders/Labs/Meds Orders: Active Orders 24 hr Category Date Time Status Iopamidol [Isovue-300 (61%)] Med 05/18/20 06:00 Active 112 ml IV . DIRECTED Sodium Chloride 0.9% [Normal Saline] 1,000 ml Med 05/18/20 05:30 Active IV ASDIRECTED Sodium Chloride 0.9% [Saline Flush] Med 05/18/20 05:18 Active 10 ml FLUSH ASDIRECTED PRN Sodium Chloride 0.9% [Saline Flush] Med 05/18/20 05:51 Active 10 ml FLUSH ONETIME PRN Saline Lock Insert [OM.PC] Routine Oth 05/18/20 05:18 Ordered Medication Orders Sodium Chloride (Normal Saline) 1,000 mls @ 125 mls/hr IV ASDIRECTED DEVAUGHN Last Admin: 05/18/20 05:29 Dose: 125 mls/hr Documented by: ERICKA Iopamidol (Isovue-300 (61%)) 112 ml IV . DIRECTED DEVAUGHN Last Admin: 05/18/20 06:02 Dose: 112 ml Documented by: HENRKYL Sodium Chloride (Saline Flush) 10 ml FLUSH ASDIRECTED PRN PRN Reason: Keep Vein Open Sodium Chloride (Saline Flush) 10 ml FLUSH ONETIME PRN PRN Reason: PER RADIOLOGY PROTOCOL Last Admin: 05/18/20 06:03 Dose: 10 ml Documented by: ITZ Labs: Laboratory Tests 05/18/20 05/18/20 05/18/20 Range/Units 05:18 05:25 05:36 WBC 10.9 (4.5-11.0) K/uL RBC 4.44 (3.30-5.50) M/uL Hgb 12.3 D (12.0-15.0) g/dL Hct 40.9 (36.0-48.0) % MCV 92 (80-98) fL MCH 28 (27-31) pg MCHC 30 L (32-36) % Plt Count 454 H (150-400) K/uL Neut % (Auto) 85 H (36-66) % Lymph % (Auto) 9 L (24-44) % Page % (Auto) 5 (2-6) % Eos % (Auto) 1 L (2-4) % Baso % (Auto) 0 (0-1) % Sodium 142 (140-148) mmol/L Potassium 4.1 (3.6-5.2) mmol/L Chloride 105 (100-108) mmol/L Carbon Dioxide 22 (21-32) mmol/L Anion Gap 14.6 H (5.0-14.0) mmol/L BUN 14 D (7-18) mg/dL Creatinine 0.8 (0.6-1.0) mg/dL Est Cr Clr Drug Dosing 66.54 mL/min Estimated GFR (MDRD) > 60 (>60) Glucose 109 H (74-106) mg/dL Calcium 8.6 (8.5-10.1) mg/dL Total Bilirubin 0.3 (0.2-1.0) mg/dL AST 311 H D (15-37) U/L ALT 158 H (12-78) U/L Alkaline Phosphatase 407 H D (46-116) U/L C-Reactive Protein 0.48 H (0.0-0.3) mg/dL Total Protein 6.7 (6.4-8.2) g/dL Albumin 3.1 L (3.4-5.0) g/dL Globulin 3.6 H (2.3-3.5) g/dL Albumin/Globulin Ratio 0.9 L (1.2-2.2) Lipase 152 (73-393) U/L SARS CoV-2 RNA Rapid OCTAVIO Negative Meds: Medications Generic Name Dose Route Start Last Admin Trade Name Heladioq PRN Reason Stop Dose Admin Sodium Chloride 1,000 mls @ 125 mls/hr 05/18/20 05:30 05/18/20 05:29 Normal Saline IV 125 mls/hr ASDIRECTED DEVAUGHN Administration Iopamidol 112 ml 05/18/20 06:00 05/18/20 06:02 Isovue-300 (61%) IV 112 ml . DIRECTED DEVAUGHN Administration Sodium Chloride 10 ml 05/18/20 05:18 Saline Flush FLUSH ASDIRECTED PRN Keep Vein Open Sodium Chloride 10 ml 05/18/20 05:51 05/18/20 06:03 Saline Flush FLUSH 10 ml ONETIME PRN Administration PER RADIOLOGY PROTOCOL Discontinued Medications Generic Name Dose Route Start Last Admin Trade Name Stephen PRN Reason Stop Dose Admin Fentanyl 100 mcg 05/18/20 05:18 05/18/20 05:30 Sublimaze IVPUSH 05/18/20 05:19 100 mcg ONETIME ONE Administration Fentanyl 50 mcg 05/18/20 07:41 05/18/20 07:50 Sublimaze IVPUSH 05/18/20 07:42 50 mcg ONETIME ONE Administration Sodium Chloride 74 mls @ 3 mls/sec 05/18/20 05:51 05/18/20 06:03 Normal Saline IV 05/18/20 05:52 3 mls/sec ONETIME ONE Administration Ondansetron HCl 4 mg 05/18/20 05:18 05/18/20 05:30 Zofran IVPUSH 05/18/20 05:19 4 mg ONETIME ONE Administration Sepsis Event Note (ED) - Focused Exam Vital Signs: Vital Signs Temp Pulse Resp BP Pulse Ox 05/18/20 07:56 99 F 109 H 16 126/85 98 05/18/20 05:06 100 F 121 H 20 138/88 97 - Assessment/Plan Plan: Assessment Acuity = acute Site and laterality = epigastric abdominal pain with subacute pancreatitis complicated patient with known history of gastric bypass Etiology = unknown Manifestations = nausea vomiting Location of injury = Home Lab values = CBC CMP unremarkable except for elevated liver enzymes with AST [address] scan does describe subacute to acute pancreatitis Plan Call discussed case hospitalist on-call at 830 kindly agreed to come to the emergency department evaluate the patient for admission This note was dictated using [employer] voice recognition software please call with any questions on syntax or grammar.
[2020-05-18] MEDS ORDERED: Iopamidol 612 MG/ML 150 ML Bottle IV SCH (06:00)
--- NOTE | 2020-05-18 07:19 | CRLCT ---
INDICATION: Abdominal pain. Pancreatitis. TECHNIQUE: CT of abdomen and pelvis performed after IV injection of 112 mL of Isovue-300. COMPARISON: CT abdomen and pelvis 05/07/2020. FINDINGS: Marked diffuse fatty infiltration of the liver mildly more prominent than on the prior exam with segmental areas of focal fatty sparing. Focal area of greater low density just lateral to the falciform ligament on image 54 in the liver may be related to more severe focal fatty infiltration. Postsurgical changes of gastric bypass surgery again noted. The pancreas is moderately atrophic. Mild to borderline moderate soft tissue stranding about the pancreas and extending to abut portions of the stomach with small amounts of fluid between the stomach and pancreas with the stranding and minimal amounts of fluid extending into the left pericolic gutter. Overall the soft tissue stranding may be slightly more prominent and would be consistent with ongoing acute on subacute pancreatitis. The more defined focus of low density within and/or surrounding the body of the pancreas measures 3.9 cm today versus 4.2 cm previously. The transverse dimension of this area of low density is 2.3 cm today versus 2.8 cm previously. This low-density m fluid collection or area of necrosis is slightly smaller. Considerations for this finding are between a developing pseudocyst about the pancreatic body versus an area of necrosis involving the pancreatic body with the latter needing to be a primary consideration and excluded. The remainder the pancreas enhances. Small amount of free fluid in the pelvis posteriorly new. Moderate gaseous distention of portions of the colon and small bowel with intervening areas of the colon and small bowel with less gaseous distention. Both small bowel and colon gaseous distention is more prominent with the small bowel and colon ranging to upper limits of normal. The findings likely related to a underlying ileus. Moderate amounts of stool in portions of the colon. Bowel cholecystectomy common bile duct mildly dilated but stable. Remainder negative. IMPRESSION: 1. Findings consistent persistent changes of acute on subacute pancreatitis with the fluid and stranding in the abdomen surrounding the pancreas and extending away from the pancreas being slightly more prominent today but an area of low-density in the pancreatic body or surrounding the pancreatic body being slightly smaller. The area of low density within or surrounding the pancreatic body should be considered an area of pancreatic necrosis until proven otherwise with differential consideration being a slightly a slightly decreasing pseudocyst 2. Colonic and small bowel ileus new 3. Cholecystectomy of mild common bile duct dilatation stable. 4. Marked fatty infiltration of the liver more prominent. Please note that all CT scans at this facility use dose modulation, iterative reconstruction, and/or weight-based dosing when appropriate to reduce radiation dose to as low as reasonably achievable. Dictated by Eligio Nicholson MD @ May 18 2020 7:16AM Signed by Dr. Eligio Nicholson @ May 18 2020 7:17AM
--- NOTE | 2020-05-18 10:00 | PCM.HP.2 ---
H&P History of Present Illness - General Date of Service: 05/18/20 Admit Problem/Dx: Admission Diagnosis/Problem Admission Diagnosis/Problem Nausea and vomiting Source of Information: Patient, Old Records, Provider History Limitations: Reports: No Limitations - History of Present Illness Initial Comments - Free Text/Narative: Ms. Isbell is a 49-year-old woman who was admitted to observation status through the emergency department with recurrent nausea, vomiting, and upper abdominal pain. She has had recent admission for similar symptoms and was found to have evidence of gastritis at that time. Pain is been worse over the past few days and associated with almost persistent nausea and vomiting. Evaluation in the emergency department has included CT scan of the abdomen which shows evidence of acute on subacute pancreatitis with inflammation around the pancreas and evidence of a pancreatic pseudocyst. Lipase level is within normal range. AST and ALT are mildly to moderately elevated. Symptoms have improved with management in the emergency department. - Related Data Allergies/Adverse Reactions: Allergies Allergy/AdvReac Type Severity Reaction Status Date / Time acetaminophen Allergy Abdominal Verified 05/18/20 05:01 [From Tylenol-Codeine] Pain cephalexin Allergy Rash Verified 05/18/20 05:00 clarithromycin [From Biaxin] Allergy Hives Verified 05/18/20 05:00 codeine Allergy Abdominal Verified 05/18/20 05:01 [From Tylenol-Codeine] Pain morphine AdvReac Abdominal Verified 05/18/20 05:00 Pain tramadol AdvReac Abdominal Verified 05/18/20 05:00 Cramps Home Medications: Home Meds Imipramine HCl 50 mg PO BEDTIME 10/22/17 [History] Iron,Carbonyl/Vit C/Vit B12/Fa [Fe C Plus] 1 tab PO DAILY 10/22/17 [History] Levothyroxine 175 mcg PO DAILY 10/22/17 [History] Lisinopril 10 mg PO DAILY 10/22/17 [History] atorvaSTATin [Lipitor] 20 mg PO DAILY 10/22/17 [History] Cholecalciferol (Vitamin D3) [Vitamin D] 1,000 units PO DAILY 01/30/19 [History] Ferrous Sulfate [Ferosul] 1 tab PO DAILY 01/30/19 [History] Methenamine Hippurate [Hiprex] 1 tab PO BID 01/30/19 [History] SUMAtriptan [Imitrex] 1 tab PO DAILY PRN 01/30/19 [History] ondansetron HCL [Ondansetron] 1 tab PO TID PRN 01/30/19 [History] traZODone HCl [Trazodone HCl] 1 tab PO BEDTIME 01/30/19 [History] Cyanocobalamin (Vitamin B12) [Vitamin B12] 1 injection IM Q30D 04/05/20 [History] DULoxetine [Cymbalta] 30 mg PO DAILY 04/05/20 [History] Pantoprazole [ProTONIX] 40 mg PO BID 05/18/20 [History] Past Medical History Cardiovascular History: Reports: High Cholesterol, Hypertension Gastrointestinal History: Reports: GERD, PUD Genitourinary History: Reports: Pyelonephritis, Renal Calculus, UTI, Recurrent Other Genitourinary History: infected cyst on one kidney and stone in other [employer] History: Reports: Musculoskeletal History: Reports: Fibromyalgia, Osteoporosis Neurological History: Reports: Migraines Psychiatric History: Reports: Depression Endocrine/Metabolic History: Reports: Diabetes, Type II Hematologic History: Reports: Anemia, B12 Deficiency, Iron Deficiency - Infectious Disease History Infectious Disease History: Reports: C-Difficile - Past Surgical History HEENT Surgical History: Reports: Tonsillectomy GI Surgical History: Reports: Bariatric Procedure, Cholecystectomy, Colonoscopy, EGD, Esophageal Dilatation Female Surgical History: Reports: Tubal Ligation Social & Family History - Tobacco Use Tobacco Use Status *Q: Never Tobacco User - Caffeine Use Caffeine Use: Reports: Soda H&P Review of Systems - Review of Systems: Review Of Systems: See Below General: Reports: No Symptoms HEENT: Reports: No Symptoms Pulmonary: Reports: No Symptoms Cardiovascular: Reports: No Symptoms Gastrointestinal: Reports: Abdominal Pain, Constipation, Distension, Nausea, V omiting. Denies: Diarrhea, Difficulty Swallowing, Hematemesis, Hematochezia, Melena Genitourinary: Reports: No Symptoms Musculoskeletal: Reports: No Symptoms Skin: Reports: No Symptoms Psychiatric: Reports: No Symptoms Neurological: Reports: No Symptoms Hematologic/Lymphatic: Reports: No Symptoms Immunologic: Reports: No Symptoms Exam - Exam Exam: See Below - Vital Signs Vital Signs: Last Vital Signs Temp 99 F 05/18/20 07:56 Pulse 109 H 05/18/20 07:56 Resp 16 05/18/20 07:56 BP 126/85 05/18/20 07:56 Pulse Ox 98 05/18/20 07:56 Weight: 165 lb 12.602 oz - Exam Quality Assessment: DVT Prophylaxis General: Alert, Oriented, Cooperative, Mild Distress HEENT: Conjunctiva Clear, Hearing Intact, Mucosa Moist & Pecan Gap, Normal Nasal Septum, Posterior Pharynx Clear, Pupils Equal Neck: Supple, Trachea Midline, +2 Carotid Pulse wo Bruit Lungs: Clear to Auscultation, Normal Respiratory Effort Cardiovascular: Regular Rate, Regular Rhythm, Normal S1, Normal S2. No: Systolic Murmur, Diastolic Murmur GI/Abdominal Exam: Soft, Non-Tender, No Organomegaly, No Distention Back Exam: Normal Inspection, Full Range of Motion Extremities: Non-Tender, No Pedal Edema Skin: Warm, Dry, Intact Neurological: Cranial Nerves Intact, Strength Equal Bilateral, Normal Speech, Normal Tone, Sensation Intact. No: Focal Deficit Neuro Extensive - Mental Status: Alert, Oriented x3, Normal Mood/Affect, Normal Cognition, Memory Intact - Patient Data Lab Results Last 24 hrs: Laboratory Results - last 24 hr 05/18/20 05/18/20 05/18/20 Range/Units 05:18 05:25 05:36 WBC 10.9 (4.5-11.0) K/uL RBC 4.44 (3.30-5.50) M/uL Hgb 12.3 D (12.0-15.0) g/dL Hct 40.9 (36.0-48.0) % MCV 92 (80-98) fL MCH 28 (27-31) pg MCHC 30 L (32-36) % Plt Count 454 H (150-400) K/uL Neut % (Auto) 85 H (36-66) % Lymph % (Auto) 9 L (24-44) % [place] % (Auto) 5 (2-6) % Eos % (Auto) 1 L (2-4) % Baso % (Auto) 0 (0-1) % Sodium 142 (140-148) mmol/L Potassium 4.1 (3.6-5.2) mmol/L Chloride 105 (100-108) mmol/L Carbon Dioxide 22 (21-32) mmol/L Anion Gap 14.6 H (5.0-14.0) mmol/L BUN 14 D (7-18) mg/dL Creatinine 0.8 (0.6-1.0) mg/dL Est Cr Clr Drug Dosing 66.54 mL/min Estimated GFR (MDRD) > 60 (>60) Glucose 109 H (74-106) mg/dL Calcium 8.6 (8.5-10.1) mg/dL Total Bilirubin 0.3 (0.2-1.0) mg/dL AST 311 H D (15-37) U/L ALT 158 H (12-78) U/L Alkaline Phosphatase 407 H D (46-116) U/L C-Reactive Protein 0.48 H (0.0-0.3) mg/dL Total Protein 6.7 (6.4-8.2) g/dL Albumin 3.1 L (3.4-5.0) g/dL Globulin 3.6 H (2.3-3.5) g/dL Albumin/Globulin Ratio 0.9 L (1.2-2.2) Lipase 152 (73-393) U/L SARS CoV-2 RNA Rapid OCTAVIO Negative Result Diagrams: 05/18/20 05:18 05/18/20 05:25 Sepsis Event Note - Evaluation Sepsis Screening Result: No Definite Risk - Focused Exam Vital Signs: Vital Signs Temp Pulse Resp BP Pulse Ox 05/18/20 07:56 99 F 109 H 16 126/85 98 05/18/20 05:06 100 F 121 H 20 138/88 97 *Q Meaningful Use (ADM) - VTE Risk Assess *Q Each Risk Factor Represents 1 Point: Age 41 - 59 years, Obesity ( BMI > 25 kg/m2) Total Score 1 Point Risk Factors: 2 Each Risk Factor Represents 2 Points: None Total Score 2 Point Risk Factors: 0 Each Risk Factor Represents 3 Points: None Total Score 3 Point Risk Factors: 0 Each Risk Factor Represents 5 Points: None Total Score 5 Point Risk Factors: 0 Venous Thromboembolism Risk Factor Score *Q: 2 Problem List Initiated/Reviewed/Updated: Yes Orders Last 24hrs: Active Orders 24 hr Category Date Time Status Patient Status Manage Transfer [TRANSFER] Routine ADT 05/18/20 09:46 Ordered Iopamidol [Isovue-300 (61%)] Med 05/18/20 06:00 Active 112 ml IV . DIRECTED Sodium Chloride 0.9% [Normal Saline] 1,000 ml Med 05/18/20 05:30 Active IV ASDIRECTED Sodium Chloride 0.9% [Saline Flush] Med 05/18/20 05:18 Active 10 ml FLUSH ASDIRECTED PRN Sodium Chloride 0.9% [Saline Flush] Med 05/18/20 05:51 Active 10 ml FLUSH ONETIME PRN Saline Lock Insert [OM.PC] Routine Oth 05/18/20 05:18 Ordered Resuscitation Status Routine Resus Stat 05/18/20 09:50 Ordered Medication Orders Sodium Chloride (Normal Saline) 1,000 mls @ 125 mls/hr IV ASDIRECTED COUNTS INCLUDE 234 BEDS AT THE [facility] Last Admin: 05/18/20 05:29 Dose: 125 mls/hr Documented by: ERICKA Iopamidol (Isovue-300 (61%)) 112 ml IV . DIRECTED COUNTS INCLUDE 234 BEDS AT THE [facility] Last Admin: 05/18/20 06:02 Dose: 112 ml Documented by: ITZ Sodium Chloride (Saline Flush) 10 ml FLUSH ASDIRECTED PRN PRN Reason: Keep Vein Open Sodium Chloride (Saline Flush) 10 ml FLUSH ONETIME PRN PRN Reason: PER RADIOLOGY PROTOCOL Last Admin: 05/18/20 06:03 Dose: 10 ml Documented by: ITZ Assessment/Plan Comment:: ASSESSMENT AND PLAN PANCREATITIS-CT scan performed today shows evidence of acute on subacute pancreatitis with persistent inflammation around the pancreas and evidence of probable pancreatic pseudocyst. Lipase level is found to be within normal range. She has had recent symptoms of increased abdominal pain associated with nausea and vomiting. There is evidence of a large amount of stool present and she does feel fairly bloated. MRCP obtained at the time of last admission shows no evidence of significant obstruction, liver enzymes are elevated. -Clear liquid diet -Pain and nausea medication as needed -Continue current therapy with Protonix and Carafate -Saline lock IV, she appears to be well-hydrated at this time STATUS [employer] [employer] SURGERY MAINTENANCE ISSUES -DVT prophylaxis; Lovenox 40 mg subcu daily -GI prophylaxis; PPI as above -Moon catheter; not indicated -Nutrition; clear liquid diet -Nicotinic dependence; not required CODE STATUS-FULL CODE ADMISSION STATUS-this patient will be admitted to observation status, expect no more than a one night hospital stay for evaluation and management of problems as outlined above. DISPOSITION-anticipate discharge to home after the hospital stay. PRIMARY CARE PROVIDER-Dr. Sheehan - Mortality Measure Prognosis:: Good
[2020-05-18] MEDS ORDERED: Sodium Phosphate,Monobasic/Sodium Phosphate,Dibasic Enema 133 ML Bottle RECTAL PRN (10:21)
[2020-05-18] MEDS ORDERED: Bisacodyl 10 MG Supp RECTAL ONE (11:00)
[2020-05-18] MEDS: oxyCODONE 5 MG Tab PO PRN ×4 (11:05→23:26)
[2020-05-18] MEDS: Acetaminophen 325 MG Tab PO PRN ×4 (11:07→23:26)
[2020-05-18] MEDS: Polyethylene Glycol 3350 Powder 17 GM Packet PO SCH (12:16)
[2020-05-18] MEDS: Enoxaparin 40 MG/0.4 ML Syringe SUBCUT SCH (12:18)
[2020-05-18] MEDS: Sucralfate Suspension 1 GM/10 ML Cup PO SCH ×3 (12:19→19:23)
[2020-05-18] MEDS: Ondansetron 4 MG Tab.DIS PO PRN ×2 (15:07→23:26)
[2020-05-18] MEDS: Pantoprazole 40 MG Tab.CR PO SCH (17:19)
[2020-05-18] MEDS: traZODone 50 MG Tab PO SCH (21:35)
[2020-05-19] MEDS: Acetaminophen 325 MG Tab PO PRN (03:39)
[2020-05-19] MEDS: oxyCODONE 5 MG Tab PO PRN ×5 (03:39→21:49)
[2020-05-19] MEDS: Levothyroxine 100 MCG, Levothyroxine 50 MCG, Levothyroxine 25 MCG PO SCH ×3 (07:57)
[2020-05-19] MEDS: Pantoprazole 40 MG Tab.CR PO SCH ×2 (07:57→17:29)
[2020-05-19] MEDS: Ondansetron 4 MG Tab.DIS PO PRN (08:02)
[2020-05-19] MEDS: Sucralfate Suspension 1 GM/10 ML Cup PO SCH ×4 (08:25→21:08)
[2020-05-19] MEDS: Lisinopril 10 MG Tab PO SCH (08:26)
[2020-05-19] MEDS: Polyethylene Glycol 3350 Powder 17 GM Packet PO SCH (08:28)
[2020-05-19] MEDS: DULoxetine 30 MG Cap PO SCH (08:28)
[2020-05-19] MEDS: atorvaSTATin 20 MG Tab PO SCH (08:28)
[2020-05-19] MEDS ORDERED: Non-Formulary Medication 1 Each (Levothyroxine [Levothyroxine] 175 MCG) PO SCH (09:00)
[2020-05-19] MEDS ORDERED: Potassium Chloride 20 MEQ Tab.ER PO ONE (09:00)
--- NOTE | 2020-05-19 12:17 | PCM.PN ---
- General Info Date of Service: 05/19/20 Subjective Update: Ms. Isbell has been stable since admission. Abdominal pain improved but not resolved, nausea and vomiting have resolved. She did experience some loose stools but that also has improved from admission. Functional Status: Reports: Tolerating Diet, Ambulating, Urinating - Review of Systems General: Reports: No Symptoms Pulmonary: Reports: No Symptoms Cardiovascular: Reports: No Symptoms Gastrointestinal: Reports: Abdominal Pain. Denies: Difficulty Swallowing, Hematochezia, Melena, Nausea, Vomiting - Patient Data Vitals - Most Recent: Last Vital Signs Temp 96.6 F L 05/19/20 10:51 Pulse 98 05/19/20 10:51 Resp 18 05/19/20 10:51 BP 129/85 05/19/20 10:51 Pulse Ox 95 05/19/20 10:51 Weight - Most Recent: 166 lb 3.2 oz I&O - Last 24 Hours: Intake & Output 05/18/20 05/19/20 05/19/20 22:59 06:59 14:59 Intake Total 1048 520 Output Total 800 200 100 Balance 248 -200 420 Lab Results Last 24 Hours: Laboratory Results - last 24 hr 05/19/20 05/19/20 Range/Units 05:48 05:48 WBC 5.2 (4.5-11.0) K/uL RBC 3.37 (3.30-5.50) M/uL Hgb 9.2 L D (12.0-15.0) g/dL Hct 31.1 L (36.0-48.0) % MCV 92 (80-98) fL MCH 27 (27-31) pg MCHC 30 L (32-36) % Plt Count 333 (150-400) K/uL Neut % (Auto) 66 (36-66) % Lymph % (Auto) 28 (24-44) % Wright % (Auto) 6 (2-6) % Eos % (Auto) 1 L (2-4) % Baso % (Auto) 0 (0-1) % Sodium 142 (140-148) mmol/L Potassium 3.5 L (3.6-5.2) mmol/L Chloride 108 (100-108) mmol/L Carbon Dioxide 26 (21-32) mmol/L Anion Gap 11.5 (5.0-14.0) mmol/L BUN 11 (7-18) mg/dL Creatinine 0.7 (0.6-1.0) mg/dL Est Cr Clr Drug Dosing 76.04 mL/min Estimated GFR (MDRD) > 60 (>60) Glucose 94 (74-106) mg/dL Calcium 7.5 L (8.5-10.1) mg/dL Total Bilirubin 0.2 (0.2-1.0) mg/dL AST 65 H D (15-37) U/L ALT 87 H (12-78) U/L Alkaline Phosphatase 233 H (46-116) U/L Total Protein 4.6 L (6.4-8.2) g/dL Albumin 2.0 L (3.4-5.0) g/dL Globulin 2.6 (2.3-3.5) g/dL Albumin/Globulin Ratio 0.8 L (1.2-2.2) Med Orders - Current: Current Medications Acetaminophen (Tylenol) 650 mg PO Q4H PRN PRN Reason: Pain (Mild 1-3)/fever Last Admin: 05/19/20 03:39 Dose: 650 mg Documented by: Atorvastatin Calcium (Lipitor) 20 mg PO DAILY [facility] Last Admin: 05/19/20 08:28 Dose: 20 mg Documented by: Duloxetine HCl (Cymbalta) 30 mg PO DAILY [facility] Last Admin: 05/19/20 08:28 Dose: 30 mg Documented by: Enoxaparin Sodium (Lovenox) 40 mg SUBCUT Q24H [facility] Last Admin: 05/18/20 12:18 Dose: 40 mg Documented by: Imipramine HCl (Imipramine Hcl) 50 mg PO BEDTIME [facility] Last Admin: 05/18/20 21:35 Dose: 50 mg Documented by: Levothyroxine Sodium 100 mcg/Levothyroxine Sodium 50 mcg/Levothyroxine Sodium 25 mcg 175 mcg PO ACBREAKFAST [facility] Last Admin: 05/19/20 07:57 Dose: 175 mcg Documented by: Lisinopril (Prinivil) 10 mg PO DAILY [facility] Last Admin: 05/19/20 08:26 Dose: 10 mg Documented by: Ondansetron HCl (Zofran Odt) 4 mg PO Q6H PRN PRN Reason: Nausea able to take PO Last Admin: 05/19/20 08:02 Dose: 4 mg Documented by: Oxycodone HCl (Oxycodone) 5 mg PO Q4H PRN PRN Reason: Pain (moderate 4-6) Last Admin: 05/19/20 08:03 Dose: 5 mg Documented by: Pantoprazole Sodium (Protonix) 40 mg PO BIDAC [facility] Last Admin: 05/19/20 07:57 Dose: 40 mg Documented by: Polyethylene Glycol (Miralax) 17 gm PO DAILY [facility] Last Admin: 05/19/20 08:28 Dose: 17 gm Documented by: Senna/Docusate Sodium (Senna Plus) 1 tab PO BID [facility] Last Admin: 05/19/20 08:26 Dose: 1 tab Documented by: Sodium Chloride (Saline Flush) 10 ml FLUSH ASDIRECTED PRN PRN Reason: Keep Vein Open Sucralfate (Carafate) 1 gm PO QIDACANDBED [facility] Last Admin: 05/19/20 08:25 Dose: 1 gm Documented by: Trazodone HCl (Trazodone) 50 mg PO BEDTIME [facility] Last Admin: 05/18/20 21:35 Dose: 50 mg Documented by: Discontinued Medications Bisacodyl (Dulcolax) 10 mg RECTAL ONETIME ONE Stop: 05/18/20 11:01 Last Admin: 05/18/20 11:53 Dose: Not Given Documented by: Fentanyl (Sublimaze) 100 mcg IVPUSH ONETIME ONE Stop: 05/18/20 05:19 Last Admin: 05/18/20 05:30 Dose: 100 mcg Documented by: Fentanyl (Sublimaze) 50 mcg IVPUSH ONETIME ONE Stop: 05/18/20 07:42 Last Admin: 05/18/20 07:50 Dose: 50 mcg Documented by: Sodium Chloride (Normal Saline) 1,000 mls @ 125 mls/hr IV ASDIRECTED [facility] Last Admin: 05/18/20 05:29 Dose: 125 mls/hr Documented by: Sodium Chloride (Normal Saline) 74 mls @ 3 mls/sec IV ONETIME ONE Stop: 05/18/20 05:52 Last Admin: 05/18/20 06:03 Dose: 3 mls/sec Documented by: Iopamidol (Isovue-300 (61%)) 112 ml IV . DIRECTED [facility] Last Admin: 05/18/20 06:02 Dose: 112 ml Documented by: Ondansetron HCl (Zofran) 4 mg IVPUSH ONETIME ONE Stop: 05/18/20 05:19 Last Admin: 05/18/20 05:30 Dose: 4 mg Documented by: Potassium Chloride (Klor-Con M20) 40 meq PO ONETIME ONE Stop: 05/19/20 09:01 Last Admin: 05/19/20 08:27 Dose: 40 meq Documented by: Sodium Biphosphate/Sodium Phosphate (Fleet Enema) 133 ml RECTAL ONETIME PRN PRN Reason: Constipation Sodium Chloride (Saline Flush) 10 ml FLUSH ASDIRECTED PRN PRN Reason: Keep Vein Open Sodium Chloride (Saline Flush) 10 ml FLUSH ONETIME PRN PRN Reason: PER RADIOLOGY PROTOCOL Last Admin: 05/18/20 06:03 Dose: 10 ml Documented by: - Exam Quality Assessment: DVT Prophylaxis General: Alert, Oriented, Cooperative, No Acute Distress Lungs: Clear to Auscultation, Normal Respiratory Effort Cardiovascular: Regular Rate, Regular Rhythm, No Murmurs GI/Abdominal Exam: Soft, Non-Tender, No Organomegaly, No Distention Extremities: Non-Tender, No Pedal Edema Sepsis Event Note - Evaluation Sepsis Screening Result: No Definite Risk - Focused Exam Vital Signs: Vital Signs Temp Pulse Resp BP BP Pulse Ox 05/19/20 10:51 96.6 F L 98 18 129/85 95 05/19/20 08:26 138/90 05/19/20 07:00 97.5 F 89 18 138/90 100 05/19/20 03:47 142/100 H 05/19/20 03:37 96.4 F L 83 14 142/106 H 97 - Problem List Review Problem List Initiated/Reviewed/Updated: Yes - My Orders Last 24 Hours: My Active Orders 05/18/20 12:00 Enoxaparin [Lovenox] 40 mg SUBCUT Q24H polyethylene glycoL 3350 [MiraLAX] 17 gm PO DAILY 05/18/20 16:30 Pantoprazole [ProTONIX] 40 mg PO BIDAC 05/18/20 19:13 Sequential Compression Device [OM.PC] Routine 05/18/20 21:00 Docusate Sodium/Sennosides [Senna Plus] 1 tab PO BID Imipramine HCl 50 mg PO BEDTIME traZODone 50 mg PO BEDTIME 05/19/20 07:30 Levothyroxine [Synthroid] 175 mcg PO ACBREAKFAST 05/19/20 09:00 DULoxetine [Cymbalta] 30 mg PO DAILY atorvaSTATin [Lipitor] 20 mg PO DAILY lisinopriL [Prinivil] 10 mg PO DAILY 05/19/20 Lunch GI Soft Low Fiber [Soft Diet] [DIET] - Plan Plan:: ASSESSMENT AND PLAN PANCREATITIS-proved from admission less abdominal pain and no nausea and vomiting -Soft low residue diet -Pain and nausea medication as needed -Continue current therapy with Protonix and Carafate -Saline lock IV, she appears to be well-hydrated at this time [employer]GERY MAINTENANCE ISSUES -DVT prophylaxis; Lovenox 40 mg subcu daily -GI prophylaxis; PPI as above -Moon catheter; not indicated -Nutrition; soft low residue diet -Nicotinic dependence; not required CODE STATUS-FULL CODE ADMISSION STATUS-this patient will be admitted to observation status, expect no more than a one night hospital stay for evaluation and management of problems as outlined above. DISPOSITION-anticipate discharge to home tomorrow PRIMARY CARE PROVIDER-Dr. Sheehan
[2020-05-19] MEDS: Enoxaparin 40 MG/0.4 ML Syringe SUBCUT SCH (12:18)
[2020-05-19] MEDS: traZODone 50 MG Tab PO SCH (21:08)
[2020-05-20] MEDS: oxyCODONE 5 MG Tab PO PRN ×3 (03:06→11:35)
[2020-05-20] MEDS: Pantoprazole 40 MG Tab.CR PO SCH (07:45)
[2020-05-20] MEDS: Sucralfate Suspension 1 GM/10 ML Cup PO SCH ×2 (07:45→11:35)
[2020-05-20] MEDS: Levothyroxine 100 MCG, Levothyroxine 50 MCG, Levothyroxine 25 MCG PO SCH ×3 (07:45)
[2020-05-20] MEDS: Polyethylene Glycol 3350 Powder 17 GM Packet PO SCH (09:40)
[2020-05-20] MEDS: atorvaSTATin 20 MG Tab PO SCH (09:40)
[2020-05-20] MEDS: Lisinopril 10 MG Tab PO SCH (09:40)
[2020-05-20] MEDS: DULoxetine 30 MG Cap PO SCH (09:40)
--- NOTE | 2020-05-20 11:54 | PCM.DCSUM1 ---
Discharge Summary - Hospital Course Brief History: Ms. Isbell is a 49-year-old woman who was admitted through the emergency department with nausea, vomiting, abdominal pain, and dehydration. - Discharge Data Discharge Date: 05/20/20 Discharge Disposition: Home, Self-Care 01 Condition: Stable - Referral to Home Health Primary Care Physician: PCP Not In Area - Discharge Diagnosis/Problem(s) (1) Nausea & vomiting SNOMED Code(s): 68732019 ICD Code: R11.2 - NAUSEA WITH VOMITING, UNSPECIFIED Status: Acute Current Visit: Yes (2) Dehydration SNOMED Code(s): 62211365 ICD Code: E86.0 - DEHYDRATION Status: Acute Current Visit: Yes (3) Generalized abdominal pain SNOMED Code(s): 274012707 ICD Code: R10.84 - GENERALIZED ABDOMINAL PAIN Status: Acute Priority: High Current Visit: Yes (4) Elevated transaminase level SNOMED Code(s): 462705763, 838088735 ICD Code: R74.01 - ELEVATION OF LEVELS OF LIVER TRANSAMINASE LEVELS Status: Acute Priority: High Current Visit: Yes (5) History of Davis-en-Y gastric bypass SNOMED Code(s): 281963052 ICD Code: Z98.84 - BARIATRIC SURGERY STATUS Status: Acute Priority: High Current Visit: Yes (6) Pancreatitis SNOMED Code(s): 98877087 ICD Code: K85.90 - ACUTE PANCREATITIS WITHOUT NECROSIS OR INFECTION, UNSP Status: Acute Current Visit: No Qualifiers: Chronicity: acute Pancreatitis type: unspecified pancreatitis type Acute pancreatitis complication: no infection or necrosis Qualified Code(s): K85.90 - Acute pancreatitis without necrosis or infection, unspecified (7) Type 2 diabetes mellitus SNOMED Code(s): 22543568 ICD Code: E11.9 - TYPE 2 DIABETES MELLITUS WITHOUT COMPLICATIONS Status: Chronic Current Visit: No - Patient Summary/Data Hospital Course: Ms. Isbell is a 49-year-old woman who was admitted to observation status through the emergency department with recurrent nausea, vomiting, and upper abdominal pain. She has had recent admission for similar symptoms and was found to have evidence of gastritis at that time. Pain is been worse over the past few days and associated with almost persistent nausea and vomiting. Evaluation in the emergency department has included CT scan of the abdomen which shows evidence of acute on subacute pancreatitis with inflammation around the pancreas and evidence of a pancreatic pseudocyst. Lipase level is within normal range. AST and ALT are mildly to moderately elevated. Symptoms have improved with management in the emergency department. On admission she was given IV fluids for hydration as well as medications for pain and nausea. Over the next 2 days of hospitalization nausea vomiting resolved and she had no further diarrhea. Abdominal pain improved but did not totally resolve during hospital stay. She will be discharged home on usual diet and activity will be as tolerated. Follow-up appointment will be scheduled with Leny Harmon in 1 week. - Patient Instructions Diet: Usual Diet as Tolerated Activity: As Tolerated Other/Special Instructions: Please schedule follow-up appointment with Leny Harmon in 1 week - Discharge Plan *PRESCRIPTION DRUG MONITORING PROGRAM REVIEWED*: Not Applicable *COPY OF PRESCRIPTION DRUG MONITORING REPORT IN PATIENT OLYA: Not Applicable Prescriptions/Med Rec: oxyCODONE 5 mg PO Q4H PRN #10 tablet PRN Reason: Pain (Moderate 4-6) Home Medications: Home Meds Imipramine HCl 50 mg PO BEDTIME 10/22/17 [History] Iron,Carbonyl/Vit C/Vit B12/Fa [Fe C Plus] 1 tab PO DAILY 10/22/17 [History] Levothyroxine 175 mcg PO DAILY 10/22/17 [History] Lisinopril 10 mg PO DAILY 10/22/17 [History] atorvaSTATin [Lipitor] 20 mg PO DAILY 10/22/17 [History] Cholecalciferol (Vitamin D3) [Vitamin D] 1,000 units PO DAILY 01/30/19 [History] Ferrous Sulfate [Ferosul] 1 tab PO DAILY 01/30/19 [History] Methenamine Hippurate [Hiprex] 1 tab PO BID 01/30/19 [History] SUMAtriptan [Imitrex] 1 tab PO DAILY PRN 01/30/19 [History] ondansetron HCL [Ondansetron] 1 tab PO TID PRN 01/30/19 [History] traZODone HCl [Trazodone HCl] 1 tab PO BEDTIME 01/30/19 [History] Cyanocobalamin (Vitamin B12) [Vitamin B12] 1 injection IM Q30D 04/05/20 [History] DULoxetine [Cymbalta] 30 mg PO DAILY 04/05/20 [History] Pantoprazole [ProTONIX] 40 mg PO BID 05/18/20 [History] oxyCODONE 5 mg PO Q4H PRN #10 tablet 05/20/20 [Rx] Referrals: Leny Harmon PA-C [Physician Envelope Maker] - 05/26/20 1:30 pm (Please arrive 15 minutes early to register for your appointment.) - Discharge Summary/Plan Comment DC Time >30 min.: No - Patient Data Vitals - Most Recent: Last Vital Signs Temp 98 F 05/20/20 10:00 Pulse 99 05/20/20 10:00 Resp 16 05/20/20 10:00 BP 133/87 05/20/20 10:00 Pulse Ox 100 05/20/20 10:00 Weight - Most Recent: 166 lb 3.2 oz I&O - Last 24 hours: Intake & Output 05/19/20 05/20/20 05/20/20 22:59 06:59 14:59 Intake Total 630 Output Total 400 300 250 Balance 230 -300 -250 Med Orders - Current: Current Medications Acetaminophen (Tylenol) 650 mg PO Q4H PRN PRN Reason: Pain (Mild 1-3)/fever Last Admin: 05/19/20 03:39 Dose: 650 mg Documented by: Atorvastatin Calcium (Lipitor) 20 mg PO DAILY [facility] Last Admin: 05/20/20 09:40 Dose: 20 mg Documented by: Duloxetine HCl (Cymbalta) 30 mg PO DAILY [facility] Last Admin: 05/20/20 09:40 Dose: 30 mg Documented by: Enoxaparin Sodium (Lovenox) 40 mg SUBCUT Q24H [facility] Last Admin: 05/19/20 12:18 Dose: 40 mg Documented by: Imipramine HCl (Imipramine Hcl) 50 mg PO BEDTIME [facility] Last Admin: 05/19/20 21:08 Dose: 50 mg Documented by: Levothyroxine Sodium 100 mcg/Levothyroxine Sodium 50 mcg/Levothyroxine Sodium 25 mcg 175 mcg PO ACBREAKFAST [facility] Last Admin: 05/20/20 07:45 Dose: 175 mcg Documented by: Lisinopril (Prinivil) 10 mg PO DAILY [facility] Last Admin: 05/20/20 09:40 Dose: 10 mg Documented by: Ondansetron HCl (Zofran Odt) 4 mg PO Q6H PRN PRN Reason: Nausea able to take PO Last Admin: 05/19/20 08:02 Dose: 4 mg Documented by: Oxycodone HCl (Oxycodone) 5 mg PO Q4H PRN PRN Reason: Pain (moderate 4-6) Last Admin: 05/20/20 11:35 Dose: 5 mg Documented by: Pantoprazole Sodium (Protonix) 40 mg PO BIDAC [facility] Last Admin: 05/20/20 07:45 Dose: 40 mg Documented by: Polyethylene Glycol (Miralax) 17 gm PO DAILY [facility] Last Admin: 05/20/20 09:40 Dose: 17 gm Documented by: Senna/Docusate Sodium (Senna Plus) 1 tab PO BID [facility] Last Admin: 05/20/20 09:40 Dose: 1 tab Documented by: Sodium Chloride (Saline Flush) 10 ml FLUSH ASDIRECTED PRN PRN Reason: Keep Vein Open Sucralfate (Carafate) 1 gm PO QIDACANDBED [facility] Last Admin: 05/20/20 11:35 Dose: 1 gm Documented by: Trazodone HCl (Trazodone) 50 mg PO BEDTIME [facility] Last Admin: 05/19/20 21:08 Dose: 50 mg Documented by: Discontinued Medications Bisacodyl (Dulcolax) 10 mg RECTAL ONETIME ONE Stop: 05/18/20 11:01 Last Admin: 05/18/20 11:53 Dose: Not Given Documented by: Fentanyl (Sublimaze) 100 mcg IVPUSH ONETIME ONE Stop: 05/18/20 05:19 Last Admin: 05/18/20 05:30 Dose: 100 mcg Documented by: Fentanyl (Sublimaze) 50 mcg IVPUSH ONETIME ONE Stop: 05/18/20 07:42 Last Admin: 05/18/20 07:50 Dose: 50 mcg Documented by: Sodium Chloride (Normal Saline) 1,000 mls @ 125 mls/hr IV ASDIRECTED [facility] Last Admin: 05/18/20 05:29 Dose: 125 mls/hr Documented by: Sodium Chloride (Normal Saline) 74 mls @ 3 mls/sec IV ONETIME ONE Stop: 05/18/20 05:52 Last Admin: 05/18/20 06:03 Dose: 3 mls/sec Documented by: Iopamidol (Isovue-300 (61%)) 112 ml IV . DIRECTED [facility] Last Admin: 05/18/20 06:02 Dose: 112 ml Documented by: Ondansetron HCl (Zofran) 4 mg IVPUSH ONETIME ONE Stop: 05/18/20 05:19 Last Admin: 05/18/20 05:30 Dose: 4 mg Documented by: Potassium Chloride (Klor-Con M20) 40 meq PO ONETIME ONE Stop: 05/19/20 09:01 Last Admin: 05/19/20 08:27 Dose: 40 meq Documented by: Sodium Biphosphate/Sodium Phosphate (Fleet Enema) 133 ml RECTAL ONETIME PRN PRN Reason: Constipation Sodium Chloride (Saline Flush) 10 ml FLUSH ASDIRECTED PRN PRN Reason: Keep Vein Open Sodium Chloride (Saline Flush) 10 ml FLUSH ONETIME PRN PRN Reason: PER RADIOLOGY PROTOCOL Last Admin: 05/18/20 06:03 Dose: 10 ml Documented by: - Exam General: Reports: Alert, Oriented, Cooperative, Mild Distress Lungs: Reports: Clear to Auscultation, Normal Respiratory Effort Cardiovascular: Reports: Regular Rate, Regular Rhythm, No Murmurs GI/Abdominal Exam: Soft, Non-Tender, No Organomegaly, No Distention Extremities: Non-Tender, No Pedal Edema
== END 2020-05-20 12:20 | disposition home or self-care (01) ==
LOC: JP.ED 04:50 → JP.MS 09:46
PROVIDERS: ADMIT Hospitalist; ATTEND Hospitalist
DX: K85.90 Acute pancreatitis without necrosis or infection, unspecified (principal); E78.00 Pure hypercholesterolemia, unspecified; I10 Essential (primary) hypertension; K21.9 Gastro-esophageal reflux disease without esophagitis; E11.9 Type 2 diabetes mellitus without complications; R74.01 Elevation of levels of liver transaminase levels; Z20.822 Contact with and (suspected) exposure to COVID-19; Z88.8 Allergy status to other drugs, medicaments and biological substances; Z88.5 Allergy status to narcotic agent; Z88.1 Allergy status to other antibiotic agents; Z79.899 Other long term (current) drug therapy; Z90.49 Acquired absence of other specified parts of digestive tract; Z98.890 Other specified postprocedural states; Z98.84 Bariatric surgery status
CPT/HCPCS: 36415; 74177; 80053; 83690; 85025; 86140; 87635; 96372; 96374; 96375; 96376; 99285; A9270; G0378; J1650; J2405; J3010; J7030; Q9967; 99217; 99218; 99224; U0002

== ENCOUNTER 2020-07-09 05:26 | Inpatient (IN) | payer MEDICAID ==
[2020-07-09] MEDS ORDERED: fentaNYL 100 MCG/2 ML SDV IVPUSH ONE ×3 (05:57→08:00)
[2020-07-09] MEDS ORDERED: Ondansetron 4 MG/2 ML SDV IVPUSH ONE (05:57)
[2020-07-09] MEDS ORDERED: Sodium Chloride 0.9% 1,000 ML IV SCH ×4 (06:00→18:00)
--- NOTE | 2020-07-09 06:04 | EDM.PDOC ---
<Hui Balderrama - Last Filed: 07/09/20 08:58> ED HPI GENERAL MEDICAL PROBLEM - General Chief Complaint: General Stated Complaint: FREEZING/VOMITING Time Seen by Provider: 07/09/20 05:45 - Related Data Allergies Allergy/AdvReac Type Severity Reaction Status Date / Time cephalexin Allergy Rash Verified 05/18/20 05:00 clarithromycin [From Biaxin] Allergy Hives Verified 05/18/20 05:00 acetaminophen AdvReac Abdominal Verified 07/09/20 10:38 [From Tylenol-Codeine] Pain codeine AdvReac Abdominal Verified 07/09/20 10:38 [From Tylenol-Codeine] Pain morphine AdvReac Abdominal Verified 05/18/20 05:00 Pain tramadol AdvReac Abdominal Verified 05/18/20 05:00 Cramps Home Meds: Home Meds Imipramine HCl 50 mg PO BEDTIME 10/22/17 [History] Iron,Carbonyl/Vit C/Vit B12/Fa [Fe C Plus] 1 tab PO DAILY 10/22/17 [History] Levothyroxine 175 mcg PO DAILY 10/22/17 [History] Lisinopril 10 mg PO DAILY 10/22/17 [History] atorvaSTATin [Lipitor] 20 mg PO DAILY 10/22/17 [History] Cholecalciferol (Vitamin D3) [Vitamin D] 1,000 units PO DAILY 01/30/19 [History] Ferrous Sulfate [Ferosul] 1 tab PO DAILY 01/30/19 [History] Methenamine Hippurate [Hiprex] 1 tab PO BID 01/30/19 [History] SUMAtriptan [Imitrex] 1 tab PO DAILY PRN 01/30/19 [History] ondansetron HCL [Ondansetron] 1 tab PO TID PRN 01/30/19 [History] traZODone HCl [Trazodone HCl] 1 tab PO BEDTIME 01/30/19 [History] Cyanocobalamin (Vitamin B12) [Vitamin B12] 1 injection IM Q30D 04/05/20 [History] DULoxetine [Cymbalta] 30 mg PO DAILY 04/05/20 [History] Pantoprazole [ProTONIX] 40 mg PO BID 05/18/20 [History] oxyCODONE 5 mg PO Q4H PRN #10 tablet 05/20/20 [Rx] Course - Re-Assessments/Exams Free Text/Narrative Re-Assessment/Exam: 07/09/20 08:21 pt developed full blown shaking chills and had a temp of 102. She has had sepsis in the past. She had a cat scan this am and is receiving fluids, zosyn was given to the pt. She was given 1000 mg of tylenol to bring down her temp. . 07/09/20 08:58 temp did rise to 103. Her urine does look quite infected. The urine was cultured. Departure - Departure Time of Disposition: 09:00 Disposition: Admitted As Inpatient 65 Condition: Fair Clinical Impression: Sepsis, UTI (urinary tract infection), Dehydration Pancreatitis Qualifiers: Chronicity: acute Pancreatitis type: unspecified pancreatitis type Acute pancreatitis complication: no infection or necrosis Qualified Code(s): K85.90 - Acute pancreatitis without necrosis or infection, unspecified - Discharge Information <Delfin Wise - Last Filed: 07/10/20 07:06> ED HPI GENERAL MEDICAL PROBLEM - General Source of Information: Reports: Patient, Family History Limitations: Reports: No Limitations - History of Present Illness INITIAL COMMENTS - FREE TEXT/NARRATIVE: 49-year-old female, status post Davis-en-Y with a history of recurring pancreatitis presents with right-sided abdominal pain, nausea vomiting, and diarrhea since 10 PM last night. Feels chilled. No fever. No hematemesis. Onset: Sudden (Symptoms started fairly suddenly 8 hours ago) Duration: Hour(s): (8 hours) Location: Reports: Abdomen (Right upper quadrant) Quality: Reports: Sharp, Stabbing Worsens with: Reports: Eating Associated Symptoms: Reports: Loss of Appetite, Malaise, Nausea/Vomiting, Weakness, Other (Chills but no fever). 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: Musculoskeletal History: Reports: Fibromyalgia, Osteoporosis Neurological History: Reports: Migraines Psychiatric History: Reports: Depression Endocrine/Metabolic History: Reports: Diabetes, Type II Hematologic History: Reports: Anemia, B12 Deficiency, Iron Deficiency - Infectious Disease History Infectious Disease History: Reports: C-Difficile - Past Surgical History HEENT Surgical History: Reports: Tonsillectomy GI Surgical History: Reports: Bariatric Procedure, Cholecystectomy, Colonoscopy, EGD, Esophageal Dilatation Female Surgical History: Reports: Tubal Ligation Other Endocrine Surgeries/Procedures: Has glucometer machine that continuously takes blood sugar Social & Family History - Family History Family Medical History: No Pertinent Family History - Tobacco Use Tobacco Use Status *Q: Never Tobacco User - Caffeine Use Caffeine Use: Reports: Soda - Recreational Drug Use Recreational Drug Use: No ED ROS GENERAL - Review of Systems Review Of Systems: See Below Constitutional: Reports: Chills, Malaise HEENT: Reports: No Symptoms Respiratory: Reports: No Symptoms Cardiovascular: Denies: Chest Pain, Palpitations GI/Abdominal: Reports: Abdominal Pain, Diarrhea, Vomiting : Reports: No Symptoms Skin: Reports: No Symptoms Neurological: Denies: Headache Psychiatric: Reports: No Symptoms Free Text/Narrative/Comment: Blood sugars have been "running high" because she is sick ED EXAM, GENERAL - Physical Exam Exam: See Below Exam Limited By: No Limitations General Appearance: Alert, Mild Distress (Patient is fairly uncomfortable) Eye Exam: Bilateral Eye: Normal Inspection (No jaundice) Head: Atraumatic Respiratory/Chest: Lungs Clear Cardiovascular: Regular Rate, Rhythm, Tachycardia GI/Abdominal: Normal Bowel Sounds, Guarding (Patient has significant tenderness with guarding on the right side of the abdomen, especially the upper abdomen) Extremities: Normal Inspection. No: Pedal Edema Neurological: Alert, Oriented Psychiatric: Anxious Skin Exam: Warm, Dry Course - Vital Signs Last Recorded V/S: Last Vital Signs Temp 99.1 F 07/09/20 20:00 Pulse 108 H 07/09/20 20:00 Resp 21 H 07/09/20 20:00 BP 108/76 07/09/20 20:00 Pulse Ox 96 07/09/20 20:00 - Orders/Labs/Meds Orders: Active Orders 24 hr Category Date Time Status CULTURE BLOOD [BC] Urgent Lab 07/09/20 08:12 Results CULTURE BLOOD [BC] Urgent Lab 07/09/20 08:19 Results CULTURE URINE [RM] Stat Lab 07/09/20 09:00 Received Blood Culture x2 Reflex Set [OM.PC] Urgent Oth 07/09/20 08:04 Ordered EKG 12 Lead [EK] Routine Ther 07/09/20 09:49 Ordered Labs: Laboratory Tests 07/09/20 07/09/20 07/09/20 Range/Units 06:02 06:02 06:02 WBC 18.3 H (4.5-11.0) K/uL RBC 4.07 (3.30-5.50) M/uL Hgb 12.2 D (12.0-15.0) g/dL Hct 40.0 (36.0-48.0) % MCV 98 (80-98) fL MCH 30 (27-31) pg MCHC 31 L (32-36) % Plt Count 585 H (150-400) K/uL Neut % (Auto) 91 H (36-66) % Lymph % (Auto) 5 L (24-44) % Stanley % (Auto) 3 (2-6) % Eos % (Auto) 0 L (2-4) % Baso % (Auto) 0 (0-1) % Sodium 141 (140-148) mmol/L Potassium 4.4 (3.6-5.2) mmol/L Chloride 103 (100-108) mmol/L Carbon Dioxide 23 (21-32) mmol/L Anion Gap 15.2 H (5.0-14.0) mmol/L BUN 11 (7-18) mg/dL Creatinine 0.9 (0.6-1.0) mg/dL Est Cr Clr Drug Dosing 59.15 mL/min Estimated GFR (MDRD) > 60 (>60) Glucose 292 H (74-106) mg/dL Lactic Acid 4.0 H (0.4-2.0) mmol/L Calcium 8.4 L (8.5-10.1) mg/dL Total Bilirubin 0.5 D (0.2-1.0) mg/dL AST 58 H (15-37) U/L ALT 99 H (12-78) U/L Alkaline Phosphatase 275 H (46-116) U/L Total Protein 6.9 (6.4-8.2) g/dL Albumin 2.8 L (3.4-5.0) g/dL Globulin 4.1 H (2.3-3.5) g/dL Albumin/Globulin Ratio 0.7 L (1.2-2.2) Amylase 44 (25-115) U/L Lipase 60 L (73-393) U/L Urine Color (YELLOW) Urine Appearance (CLEAR) Urine pH (5.0-8.0) Ur Specific [place] (1.008-1.030) Urine Protein (NEGATIVE) mg/dL Urine Glucose (UA) (NEGATIVE) mg/dL Urine Ketones (NEGATIVE) mg/dL Urine Occult Blood (NEGATIVE) Urine Nitrite (NEGATIVE) Urine Bilirubin (NEGATIVE) Urine Urobilinogen (0.2-1.0) EU/dL Ur Leukocyte Esterase (NEGATIVE) Urine RBC (0-5) Urine WBC (0-5) Ur Epithelial Cells Amorphous Sediment Urine Bacteria Urine Mucus 07/09/20 Range/Units 08:42 WBC (4.5-11.0) K/uL RBC (3.30-5.50) M/uL Hgb (12.0-15.0) g/dL Hct (36.0-48.0) % MCV (80-98) fL MCH (27-31) pg MCHC (32-36) % Plt Count (150-400) K/uL Neut % (Auto) (36-66) % Lymph % (Auto) (24-44) % Stanley % (Auto) (2-6) % Eos % (Auto) (2-4) % Baso % (Auto) (0-1) % Sodium (140-148) mmol/L Potassium (3.6-5.2) mmol/L Chloride (100-108) mmol/L Carbon Dioxide (21-32) mmol/L Anion Gap (5.0-14.0) mmol/L BUN (7-18) mg/dL Creatinine (0.6-1.0) mg/dL Est Cr Clr Drug Dosing mL/min Estimated GFR (MDRD) (>60) Glucose (74-106) mg/dL Lactic Acid (0.4-2.0) mmol/L Calcium (8.5-10.1) mg/dL Total Bilirubin (0.2-1.0) mg/dL AST (15-37) U/L ALT (12-78) U/L Alkaline Phosphatase (46-116) U/L Total Protein (6.4-8.2) g/dL Albumin (3.4-5.0) g/dL Globulin (2.3-3.5) g/dL Albumin/Globulin Ratio (1.2-2.2) Amylase (25-115) U/L Lipase (73-393) U/L Urine Color Yellow (YELLOW) Urine Appearance Slightly cloudy A (CLEAR) Urine pH 5.5 (5.0-8.0) Ur Specific [place] 1.010 (1.008-1.030) Urine Protein 30 H (NEGATIVE) mg/dL Urine Glucose (UA) 100 H (NEGATIVE) mg/dL Urine Ketones Negative (NEGATIVE) mg/dL Urine Occult Blood Small H (NEGATIVE) Urine Nitrite Positive H (NEGATIVE) Urine Bilirubin Negative (NEGATIVE) Urine Urobilinogen 0.2 (0.2-1.0) EU/dL Ur Leukocyte Esterase Small H (NEGATIVE) Urine RBC 0-5 (0-5) Urine WBC 30-40 H (0-5) Ur Epithelial Cells Few Amorphous Sediment Rare Urine Bacteria Moderate Urine Mucus Not seen Meds: Medications Discontinued Medications Generic Name Dose Route Start Last Admin Trade Name Freq PRN Reason Stop Dose Admin Acetaminophen 1,000 mg 07/09/20 08:30 07/09/20 08:30 Acetaminophen 500 Mg Tab PO 07/09/20 08:31 1,000 mg NOW ONE Administration Acetaminophen 650 mg 07/09/20 12:00 Acetaminophen 325 Mg Tab PO Q4H PRN Pain (Mild 1-3)/fever Atorvastatin Calcium 20 mg 07/09/20 21:00 07/09/20 21:26 Atorvastatin 20 Mg Tab PO Not Given BEDTIME [facility] Dextrose/Water 50 ml 07/09/20 09:59 50% Dextrose In Water 50 Ml Syringe IVPUSH ASDIRECTED PRN Hypoglycemia Duloxetine HCl 30 mg 07/09/20 11:00 07/09/20 11:34 Duloxetine 30 Mg Cap PO 30 mg DAILY [facility] Administration Enoxaparin Sodium 40 mg 07/09/20 11:00 07/09/20 11:39 Enoxaparin 40 Mg/0.4 Ml Syringe SUBCUT 40 mg Q24H [facility] Administration Fentanyl 50 mcg 07/09/20 05:57 07/09/20 06:08 Fentanyl 100 Mcg/2 Ml Sdv IVPUSH 07/09/20 05:58 50 mcg ONETIME ONE Administration Fentanyl 50 mcg 07/09/20 06:36 07/09/20 06:40 Fentanyl 100 Mcg/2 Ml Sdv IVPUSH 07/09/20 06:37 50 mcg ONETIME ONE Administration Fentanyl 50 mcg 07/09/20 08:00 07/09/20 08:07 Fentanyl 100 Mcg/2 Ml Sdv IVPUSH 07/09/20 08:01 50 mcg ONETIME ONE Administration Fentanyl 50 mcg 07/09/20 10:12 07/09/20 18:34 Fentanyl 100 Mcg/2 Ml Sdv IVPUSH 50 mcg Q1H PRN Administration Pain (severe 7-10) Fentanyl 25 mcg 07/09/20 10:13 Fentanyl 100 Mcg/2 Ml Sdv IVPUSH Q1H PRN Pain (moderate 4-6) Glucagon 1 mg 07/09/20 09:59 Glucagon,Human Recombinant 1 Mg Vial IM ASDIRECTED PRN Hypoglycemia Hydromorphone HCl 1 mg 07/09/20 07:48 07/09/20 08:05 Hydromorphone 1 Mg/Ml Syringe IVPUSH 07/09/20 07:49 Not Given ONETIME ONE Sodium Chloride 1,000 mls @ 1,000 mls/hr 07/09/20 06:00 07/09/20 06:08 Normal Saline IV 1,000 mls/hr ASDIRECTED [facility] Administration Sodium Chloride 71 mls @ 3.1 mls/sec 07/09/20 07:00 07/09/20 07:17 Normal Saline IV 07/09/20 16:00 3.1 mls/sec ASDIRECTED [facility] Administration Sodium Chloride 1,000 mls @ 999 mls/hr 07/09/20 08:15 07/09/20 08:06 Normal Saline IV 999 mls/hr ASDIRECTED [facility] Administration Sodium Chloride 1,000 mls @ 999 mls/hr 07/09/20 08:15 07/09/20 10:53 Normal Saline IV 999 mls/hr ASDIRECTED [facility] Administration Piperacillin Sod/Tazobactam 100 mls @ 100 mls/hr 07/09/20 08:16 07/09/20 08:29 Sod 4.5 gm/ Sodium Chloride IV 07/09/20 09:15 100 mls/hr ONETIME ONE Administration Lactated Ringer's 1,000 mls @ 125 mls/hr 07/09/20 10:15 07/09/20 21:24 Ringers, Lactated IV 125 mls/hr ASDIRECTED [facility] Administration Vancomycin HCl 1.3 gm/ Sodium 250 mls @ 166.667 mls/hr 07/09/20 10:30 07/09/20 11:13 Chloride IV 07/09/20 11:59 166.667 mls/hr ONETIME ONE Administration Meropenem 1 gm/ Sodium 100 mls @ 200 mls/hr 07/09/20 14:00 07/09/20 21:24 Chloride IV 200 mls/hr Q8H [facility] Administration Vancomycin HCl 1 gm/ Sodium 250 mls @ 166.667 mls/hr 07/09/20 23:00 Chloride IV Q12H [facility] Sodium Chloride 1,000 mls @ 500 mls/hr 07/09/20 18:00 Normal Saline IV ASDIRECTED [facility] Insulin Glargine 10 units 07/09/20 11:00 07/09/20 11:40 Insulin Glargine,Human Rec. Analog 100 Units/Ml 3 Ml Pen SUBCUT 10 units DAILY [facility] Administration Insulin Human Lispro 0 unit 07/09/20 11:00 07/09/20 20:19 Insulin Lispro 100 Unit/Ml 3 Ml Kwikpen SUBCUT 1 units QIDACANDBED [facility] Administration Protocol Iopamidol 104 ml 07/09/20 06:53 07/09/20 07:17 Iopamidol 612 Mg/Ml 500 Ml Multipack Bottle IV 07/09/20 06:54 104 ml ONETIME ONE Administration Ketorolac Tromethamine 30 mg 07/09/20 08:48 07/09/20 08:59 Ketorolac 30 Mg/Ml Sdv IVPUSH 07/09/20 08:49 30 mg ONETIME ONE Administration Levothyroxine Sodium 100 mcg/ 175 mcg 07/09/20 11:30 07/09/20 11:36 Levothyroxine Sodium 25 mcg/ PO 175 mcg Levothyroxine Sodium 50 mcg ACBREAKFAST [facility] Administration Ondansetron HCl 4 mg 07/09/20 05:57 07/09/20 06:08 Ondansetron 4 Mg/2 Ml Sdv IVPUSH 07/09/20 05:58 4 mg ONETIME ONE Administration Ondansetron HCl 4 mg 07/09/20 09:51 07/09/20 13:16 Ondansetron 4 Mg/2 Ml Sdv IV 4 mg Q4H PRN Administration Nausea/Vomiting Oxycodone HCl 5 mg 07/09/20 09:51 Oxycodone 5 Mg Tab PO Q4H PRN Pain (moderate 4-6) Oxycodone HCl 10 mg 07/09/20 09:51 07/09/20 12:27 Oxycodone 5 Mg Tab PO 10 mg Q4H PRN Administration Pain (severe 7-10) Pantoprazole Sodium 40 mg 07/09/20 11:00 07/09/20 11:46 Pantoprazole 40 Mg Vial IV 40 mg Q12H [facility] Administration Prochlorperazine Edisylate 10 mg 07/09/20 13:50 07/09/20 14:38 Prochlorperazine 10 Mg/2 Ml Sdv IVPUSH 10 mg Q6H PRN Administration Nausea/Vomiting Sodium Chloride 10 ml 07/09/20 09:51 Sodium Chloride 0.9% 10 Ml Syringe FLUSH ASDIRECTED PRN Keep Vein Open Sumatriptan Succinate 100 mg 07/09/20 09:59 Sumatriptan 100 Mg Tab PO Q2H PRN Headache Vancomycin HCl 2 gm 07/09/20 11:00 Vancomycin 1 Gm Sdv IV .PHARMACY TO DOSE [facility] - Re-Assessments/Exams Free Text/Narrative Re-Assessment/Exam: 07/09/20 06:02 CBC, CMP, amylase and lipase were obtained and patient will be bolused with normal saline. She was given 4 mg of Zofran and 50 mcg of fentanyl. 07/09/20 06:38 Patient initially responded fairly well to the IV fentanyl but pain returned. The second 50 mcg dose was given. White count is 18,000, hemoglobin 12.2. Waiting for kidney function results as I would prefer to use IV contrast in her abdominal CT. 07/09/20 06:54 Kidney function is normal, glucose [address]0. [address] was ordered. Care was turned over to Dr. Balderrama. Sepsis Event Note (ED) - Evaluation Sepsis Screening Result: Possible Sepsis Risk
[2020-07-09] MEDS ORDERED: Iopamidol 612 MG/ML 500 ML Multipack Bottle IV ONE (06:53)
[2020-07-09] MEDS ORDERED: Sodium Chloride 0.9% 71 ML IV SCH (07:00)
[2020-07-09] MEDS ORDERED: HYDROmorphone 1 MG/ML Syringe IVPUSH ONE (07:48)
[2020-07-09] MEDS ORDERED: Acetaminophen 325 MG Tab PO ONE (08:13)
[2020-07-09] MEDS ORDERED: Piperacillin/Tazobactam 4.5 GM in Sodium Chloride 0.9% 100 ML IV ONE (08:16)
[2020-07-09] MEDS ORDERED: Acetaminophen 500 MG Tab PO ONE (08:30)
--- NOTE | 2020-07-09 08:41 | CRLCT ---
INDICATION: Abdominal pain. TECHNIQUE: CT abdomen and pelvis acquired with 104 cc Isovue-300 IV contrast. COMPARISON: 07/04/2020. FINDINGS: Lower chest: Unremarkable. Liver: Unchanged hepatomegaly and hepatic steatosis. Gallbladder and bile ducts: Status post cholecystectomy. No biliary dilatation. Pancreas: Mild inflammation about the pancreatic tail has improved. Peripancreatic fluid collection measuring 2 cm on series 3, image 41 has improved, previously measuring 2.5 cm. Spleen: Unremarkable. Normal in size. No masses. Adrenal glands: Unremarkable. No nodules. Kidneys: Unremarkable. No masses, stones, or hydronephrosis. GI tract: Unremarkable. Normal in caliber. No sign of mass or inflammation. Vasculature: Unremarkable. Mesenteric arteries are patent. Lymph nodes: No lymphadenopathy. Omentum/Peritoneum/Abdominal Wall: Unremarkable. No sign of mass or infiltration. No free air or significant free fluid. Pelvis: Unremarkable. Bones: Unremarkable for age. IMPRESSION: 1. No new or worsening findings. 2. Slightly improved pancreatitis. Peripancreatic fluid collection has also slightly decreased in size. 3. Stable hepatomegaly and severe hepatic steatosis. Please note that all CT scans at this facility use dose modulation, iterative reconstruction, and/or weight-based dosing when appropriate to reduce radiation dose to as low as reasonably achievable. Dictated by Pietro Lopez MD @ Jul 09 2020 8:28AM Signed by Dr. Pietro Lopez @ Jul 09 2020 8:40AM
[2020-07-09] MEDS ORDERED: Ketorolac 30 MG/ML SDV IVPUSH ONE (08:48)
[2020-07-09] MEDS ORDERED: oxyCODONE 5 MG Tab PO PRN ×2 (09:51)
[2020-07-09] MEDS ORDERED: Sodium Chloride 0.9% 10 ML Syringe FLUSH PRN (09:51)
[2020-07-09] MEDS ORDERED: Ondansetron 4 MG/2 ML SDV IV PRN (09:51)
[2020-07-09] MEDS ORDERED: Glucagon,Human Recombinant 1 MG Vial IM PRN (09:59)
[2020-07-09] MEDS ORDERED: 50% Dextrose in Water 50 ML Syringe IVPUSH PRN (09:59)
[2020-07-09] MEDS ORDERED: Meropenem 1 GM in Sodium Chloride 0.9% 100 ML IV SCH ×2 (10:00→14:00)
[2020-07-09] MEDS ORDERED: fentaNYL 100 MCG/2 ML SDV IVPUSH PRN (10:13)
--- NOTE | 2020-07-09 10:22 | PCM.HP.2 ---
H&P History of Present Illness - General Date of Service: 07/09/20 Admit Problem/Dx: Admission Diagnosis/Problem Admission Diagnosis/Problem Urosepsis Source of Information: Patient History Limitations: Reports: No Limitations - History of Present Illness Symptom Onset Date: 07/08/20 Symptom Onset Time: 22:00 Duration of Symptoms: Reports: Hour(s): Location: Reports: Abdomen Quality: Reports: Burning, Sharp, Stabbing Severity: Severe Improves with: Reports: Cold Therapy, Medication Worsens with: Reports: Movement Associated Symptoms: Reports: Fever/Chills, Nausea/Vomiting Right Abdomen Pain Score (Numeric/FACES): 8 - Related Data Allergies/Adverse Reactions: Allergies Allergy/AdvReac Type Severity Reaction Status Date / Time acetaminophen Allergy Abdominal Verified 05/18/20 05:01 [From Tylenol-Codeine] Pain cephalexin Allergy Rash Verified 05/18/20 05:00 clarithromycin [From Biaxin] Allergy Hives Verified 05/18/20 05:00 codeine Allergy Abdominal Verified 05/18/20 05:01 [From Tylenol-Codeine] Pain morphine AdvReac Abdominal Verified 05/18/20 05:00 Pain tramadol AdvReac Abdominal Verified 05/18/20 05:00 Cramps Home Medications: Home Meds Imipramine HCl 50 mg PO BEDTIME 10/22/17 [History] Iron,Carbonyl/Vit C/Vit B12/Fa [Fe C Plus] 1 tab PO DAILY 10/22/17 [History] Levothyroxine 175 mcg PO DAILY 10/22/17 [History] Lisinopril 10 mg PO DAILY 10/22/17 [History] atorvaSTATin [Lipitor] 20 mg PO DAILY 10/22/17 [History] Cholecalciferol (Vitamin D3) [Vitamin D] 1,000 units PO DAILY 01/30/19 [History] Ferrous Sulfate [Ferosul] 1 tab PO DAILY 01/30/19 [History] Methenamine Hippurate [Hiprex] 1 tab PO BID 01/30/19 [History] SUMAtriptan [Imitrex] 1 tab PO DAILY PRN 01/30/19 [History] ondansetron HCL [Ondansetron] 1 tab PO TID PRN 01/30/19 [History] traZODone HCl [Trazodone HCl] 1 tab PO BEDTIME 01/30/19 [History] Cyanocobalamin (Vitamin B12) [Vitamin B12] 1 injection IM Q30D 04/05/20 [History] DULoxetine [Cymbalta] 30 mg PO DAILY 04/05/20 [History] Pantoprazole [ProTONIX] 40 mg PO BID 05/18/20 [History] oxyCODONE 5 mg PO Q4H PRN #10 tablet 05/20/20 [Rx] Past Medical History Cardiovascular History: Reports: High Cholesterol, Hypertension Gastrointestinal History: Reports: GERD, PUD Genitourinary History: Reports: Pyelonephritis, Renal Calculus, UTI, Recurrent Other Genitourinary History: infected cyst on one kidney and stone in other 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: Musculoskeletal History: Reports: Fibromyalgia, Osteoporosis Neurological History: Reports: Migraines Psychiatric History: Reports: Depression Endocrine/Metabolic History: Reports: Diabetes, Type II Hematologic History: Reports: Anemia, B12 Deficiency, Iron Deficiency - Infectious Disease History Infectious Disease History: Reports: C-Difficile - Past Surgical History HEENT Surgical History: Reports: Tonsillectomy GI Surgical History: Reports: Bariatric Procedure, Cholecystectomy, Colonoscopy, EGD, Esophageal Dilatation Female Surgical History: Reports: Tubal Ligation Other Endocrine Surgeries/Procedures: Has glucometer machine that continuously takes blood sugar Social & Family History - Family History Family Medical History: No Pertinent Family History - Tobacco Use Tobacco Use Status *Q: Never Tobacco User - Caffeine Use Caffeine Use: Reports: Soda - Recreational Drug Use Recreational Drug Use: No H&P Review of Systems - Review of Systems: Review Of Systems: See Below General: Reports: Fever, Chills, Malaise HEENT: Reports: No Symptoms Pulmonary: Reports: No Symptoms Cardiovascular: Reports: No Symptoms Gastrointestinal: Reports: Diarrhea, Vomiting. Denies: Black Stool, Bloody Stool Genitourinary: Reports: Dysuria, Frequency, Burning Musculoskeletal: Reports: No Symptoms Skin: Reports: No Symptoms Psychiatric: Reports: No Symptoms Neurological: Reports: No Symptoms Hematologic/Lymphatic: Reports: No Symptoms Immunologic: Reports: No Symptoms Exam - Exam Exam: See Below - Vital Signs Vital Signs: Last Vital Signs Temp 102.5 F H 07/09/20 09:22 Pulse 133 H 07/09/20 09:22 Resp 20 07/09/20 08:42 BP 131/86 07/09/20 09:22 Pulse Ox 95 07/09/20 09:22 Weight: 153 lb - Exam General: Alert, Oriented, Mild Distress HEENT: Conjunctiva Clear, Hearing Intact Neck: Supple, Trachea Midline Lungs: Clear to Auscultation Cardiovascular: Regular Rate, Tachycardia GI/Abdominal Exam: Tender, Abnormal Bowel Sounds. No: Guarding, Rebound Extremities: Normal Inspection Skin: Warm, Dry Neuro Extensive - Mental Status: Alert, Oriented x3, Normal Mood/Affect Psychiatric: Alert, Normal Affect, Normal Mood - Patient Data Lab Results Last 24 hrs: Laboratory Results - last 24 hr 07/09/20 07/09/20 07/09/20 Range/Units 06:02 06:02 06:02 WBC 18.3 H (4.5-11.0) K/uL RBC 4.07 (3.30-5.50) M/uL Hgb 12.2 D (12.0-15.0) g/dL Hct 40.0 (36.0-48.0) % MCV 98 (80-98) fL MCH 30 (27-31) pg MCHC 31 L (32-36) % Plt Count 585 H (150-400) K/uL Neut % (Auto) 91 H (36-66) % Lymph % (Auto) 5 L (24-44) % [place] % (Auto) 3 (2-6) % Eos % (Auto) 0 L (2-4) % Baso % (Auto) 0 (0-1) % Sodium 141 (140-148) mmol/L Potassium 4.4 (3.6-5.2) mmol/L Chloride 103 (100-108) mmol/L Carbon Dioxide 23 (21-32) mmol/L Anion Gap 15.2 H (5.0-14.0) mmol/L BUN 11 (7-18) mg/dL Creatinine 0.9 (0.6-1.0) mg/dL Est Cr Clr Drug Dosing 59.15 mL/min Estimated GFR (MDRD) > 60 (>60) Glucose 292 H (74-106) mg/dL Lactic Acid 4.0 H (0.4-2.0) mmol/L Calcium 8.4 L (8.5-10.1) mg/dL Total Bilirubin 0.5 D (0.2-1.0) mg/dL AST 58 H (15-37) U/L ALT 99 H (12-78) U/L Alkaline Phosphatase 275 H (46-116) U/L Total Protein 6.9 (6.4-8.2) g/dL Albumin 2.8 L (3.4-5.0) g/dL Globulin 4.1 H (2.3-3.5) g/dL Albumin/Globulin Ratio 0.7 L (1.2-2.2) Amylase 44 (25-115) U/L Lipase 60 L (73-393) U/L Urine Color (YELLOW) Urine Appearance (CLEAR) Urine pH (5.0-8.0) Ur Specific [place] (1.008-1.030) Urine Protein (NEGATIVE) mg/dL Urine Glucose (UA) (NEGATIVE) mg/dL Urine Ketones (NEGATIVE) mg/dL Urine Occult Blood (NEGATIVE) Urine Nitrite (NEGATIVE) Urine Bilirubin (NEGATIVE) Urine Urobilinogen (0.2-1.0) EU/dL Ur Leukocyte Esterase (NEGATIVE) Urine RBC (0-5) Urine WBC (0-5) Ur Epithelial Cells Amorphous Sediment Urine Bacteria Urine Mucus 07/09/20 Range/Units 08:42 WBC (4.5-11.0) K/uL RBC (3.30-5.50) M/uL Hgb (12.0-15.0) g/dL Hct (36.0-48.0) % MCV (80-98) fL MCH (27-31) pg MCHC (32-36) % Plt Count (150-400) K/uL Neut % (Auto) (36-66) % Lymph % (Auto) (24-44) % [place] % (Auto) (2-6) % Eos % (Auto) (2-4) % Baso % (Auto) (0-1) % Sodium (140-148) mmol/L Potassium (3.6-5.2) mmol/L Chloride (100-108) mmol/L Carbon Dioxide (21-32) mmol/L Anion Gap (5.0-14.0) mmol/L BUN (7-18) mg/dL Creatinine (0.6-1.0) mg/dL Est Cr Clr Drug Dosing mL/min Estimated GFR (MDRD) (>60) Glucose (74-106) mg/dL Lactic Acid (0.4-2.0) mmol/L Calcium (8.5-10.1) mg/dL Total Bilirubin (0.2-1.0) mg/dL AST (15-37) U/L ALT (12-78) U/L Alkaline Phosphatase (46-116) U/L Total Protein (6.4-8.2) g/dL Albumin (3.4-5.0) g/dL Globulin (2.3-3.5) g/dL Albumin/Globulin Ratio (1.2-2.2) Amylase (25-115) U/L Lipase (73-393) U/L Urine Color Yellow (YELLOW) Urine Appearance Slightly cloudy A (CLEAR) Urine pH 5.5 (5.0-8.0) Ur Specific [place] 1.010 (1.008-1.030) Urine Protein 30 H (NEGATIVE) mg/dL Urine Glucose (UA) 100 H (NEGATIVE) mg/dL Urine Ketones Negative (NEGATIVE) mg/dL Urine Occult Blood Small H (NEGATIVE) Urine Nitrite Positive H (NEGATIVE) Urine Bilirubin Negative (NEGATIVE) Urine Urobilinogen 0.2 (0.2-1.0) EU/dL Ur Leukocyte Esterase Small H (NEGATIVE) Urine RBC 0-5 (0-5) Urine WBC 30-40 H (0-5) Ur Epithelial Cells Few Amorphous Sediment Rare Urine Bacteria Moderate Urine Mucus Not seen Result Diagrams: 07/09/20 06:02 07/09/20 06:02 Sepsis Event Note - Evaluation Sepsis Screening Result: Possible Sepsis Risk Current Stage of Sepsis: Sepsis Possible Source of Sepsis: GI Tract/Intra-abdominal - Focused Exam Sepsis Event Note Statement: Focused Sepsis Exam Completed Vital Signs: Vital Signs Temp Pulse Resp BP Pulse Ox 07/09/20 09:22 102.5 F H 133 H 131/86 95 07/09/20 08:42 103.5 F H 132 H 20 145/93 H 95 07/09/20 08:13 102.3 F H 07/09/20 07:55 114 H 26 H 153/96 H 98 07/09/20 06:42 119 H 140/89 99 07/09/20 05:43 95.6 F L 132 H 22 H 144/81 H 99 Pulse Description: 2+ Normal Problem List Initiated/Reviewed/Updated: Yes Orders Last 24hrs: Active Orders 24 hr Category Date Time Status Patient Status [ADT] Routine ADT 07/09/20 09:51 Active Bedrest Bathroom Privileges [RC] ASDIRECTED Care 07/09/20 09:51 Active Blood Glucose Check, Bedside [RC] QIDACANDBED Care 07/09/20 09:51 Active Cardiac Monitoring [RC] .As Directed Care 07/09/20 09:53 Active Diabetes Education [RC] Click to Edit Care 07/09/20 10:16 Ordered EKG Documentation Completion [RC] ASDIRECTED Care 07/09/20 09:49 Active Height and Weight [RC] DAILY Care 07/09/20 09:51 Active Intake and Output [RC] QSHIFT Care 07/09/20 09:53 Active Notify Provider [RC] PRN Care 07/09/20 10:16 Ordered Oxygen Therapy [RC] PRN Care 07/09/20 09:51 Active Peripheral IV Care [RC] . DIRECTED Care 07/09/20 09:55 Active VTE/DVT Education [RC] Per Unit Routine Care 07/09/20 09:51 Active Vital Signs [RC] Q4H Care 07/09/20 09:51 Active Clear Liquid Diet [DIET] Diet 07/09/20 Lunch Active Chest 1V Frontal [CR] Stat Exams 07/09/20 08:18 Ordered CBC WITH AUTO DIFF [HEME] AM Lab 07/10/20 05:11 Ordered COMPREHENSIVE METABOLIC PN,CMP [CHEM] AM Lab 07/10/20 05:11 Ordered CULTURE BLOOD [BC] Urgent Lab 07/09/20 08:12 Received CULTURE BLOOD [BC] Urgent Lab 07/09/20 08:19 Received CULTURE URINE [RM] Stat Lab 07/09/20 09:00 Received LACTATE SEPSIS W/ REFLEX [CHEM] Routine Lab 07/09/20 12:00 Ordered PROCALCITONIN [CHEM] Routine Lab 07/09/20 10:11 Ordered Acetaminophen [TylenoL] Med 07/09/20 09:51 Ordered 650 mg PO Q4H PRN DULoxetine [Cymbalta] Med 07/09/20 10:00 Ordered 30 mg PO DAILY Dextrose 50% in Water Med 07/09/20 09:59 Ordered 50 ml IVPUSH ASDIRECTED PRN Enoxaparin [Lovenox] Med 07/09/20 10:00 Ordered 40 mg SUBCUT DAILY Glucagon,Human Recombinant [GlucaGen] Med 07/09/20 09:59 Ordered 1 mg IM ASDIRECTED PRN Insulin Glarg,Human.Rec.Analog [LantUS Solostar] Med 07/09/20 10:00 Ordered 10 units SUBCUT DAILY Insulin Lispro [HumaLOG] Med 07/09/20 11:00 Ordered See Protocol SUBCUT QIDACANDBED Lactated Ringers @ 125 MLS/HR(1,000ml) Med 07/09/20 10:15 Ordered Lactated Ringers [Ringers, Lactated] 1,000 ml IV ASDIRECTED Levothyroxine Med 07/09/20 11:00 Ordered 175 mcg PO ACBREAKFAST Meropenem [Merrem] 1 gm Med 07/09/20 10:15 Ordered Sodium Chloride 0.9% [Normal Saline] 100 ml IV Q8H Ondansetron [Zofran] Med 07/09/20 09:51 Ordered 4 mg IV Q4H PRN Pantoprazole [ProTONIX IV] Med 07/09/20 10:00 Ordered 40 mg IV Q12H SUMAtriptan Med 07/09/20 09:59 Ordered 100 mg PO Q2H PRN Sodium Chloride 0.9% [Normal Saline] 1,000 ml Med 07/09/20 08:15 Active IV ASDIRECTED Sodium Chloride 0.9% [Normal Saline] 71 ml Med 07/09/20 07:00 Active IV ASDIRECTED Sodium Chloride 0.9% [Saline Flush] Med 07/09/20 09:51 Ordered 10 ml FLUSH ASDIRECTED PRN Vancomycin Med 07/09/20 11:00 Ordered 2 gm IV .PHARMACY TO DOSE atorvaSTATin [Lipitor] Med 07/09/20 21:00 Ordered 20 mg PO BEDTIME fentaNYL [Sublimaze] Med 07/09/20 10:13 Ordered 25 mcg IVPUSH Q1H PRN fentaNYL [Sublimaze] Med 07/09/20 10:12 Ordered 50 mcg IVPUSH Q1H PRN oxyCODONE Med 07/09/20 09:51 Ordered 10 mg PO Q4H PRN oxyCODONE Med 07/09/20 09:51 Ordered 5 mg PO Q4H PRN Blood Culture x2 Reflex Set [OM.PC] Urgent Oth 07/09/20 08:04 Ordered Peripheral IV Insertion Adult [OM.PC] Routine Oth 07/09/20 09:51 Ordered Resuscitation Status Routine Resus Stat 07/09/20 09:51 Ordered EKG 12 Lead [EK] Routine Ther 07/09/20 09:49 Ordered Medication Orders Acetaminophen (Acetaminophen 325 Mg Tab) 650 mg PO Q4H PRN PRN Reason: Pain (Mild 1-3)/fever Atorvastatin Calcium (Atorvastatin 20 Mg Tab) 20 mg PO BEDTIME REPLACED BY [facility] Dextrose/Water (50% Dextrose In Water 50 Ml Syringe) 50 ml IVPUSH ASDIRECTED PRN PRN Reason: Hypoglycemia Duloxetine HCl (Duloxetine 30 Mg Cap) 30 mg PO DAILY DEVAUGHN Enoxaparin Sodium (Enoxaparin 40 Mg/0.4 Ml Syringe) 40 mg SUBCUT DAILY REPLACED BY [facility] Fentanyl (Fentanyl 100 Mcg/2 Ml Sdv) 50 mcg IVPUSH Q1H PRN PRN Reason: Pain (severe 7-10) Fentanyl (Fentanyl 100 Mcg/2 Ml Sdv) 25 mcg IVPUSH Q1H PRN PRN Reason: Pain (moderate 4-6) Glucagon (Glucagon,Human Recombinant 1 Mg Vial) 1 mg IM ASDIRECTED PRN PRN Reason: Hypoglycemia Sodium Chloride (Normal Saline) 71 mls @ 3.1 mls/sec IV ASDIRECTED REPLACED BY [facility] Stop: 07/09/20 16:00 Last Admin: 07/09/20 07:17 Dose: 3.1 mls/sec Documented by: ITZ Sodium Chloride (Normal Saline) 1,000 mls @ 999 mls/hr IV ASDIRECTED REPLACED BY [facility] Lactated Ringer's (Ringers, Lactated) 1,000 mls @ 125 mls/hr IV ASDIRECTED REPLACED BY [facility] Meropenem 1 gm/ Sodium (Chloride) 100 mls @ 200 mls/hr IV Q8H REPLACED BY [facility] Insulin Glargine (Insulin Glargine,Human Rec. Analog 100 Units/Ml 3 Ml Pen) 10 units SUBCUT DAILY REPLACED BY [facility] Insulin Human Lispro (Insulin Lispro 100 Unit/Ml 3 Ml Kwikpen) 0 unit SUBCUT QIDACANDBED REPLACED BY [facility]; Protocol Levothyroxine Sodium (Levothyroxine 112 Mcg Tab) 175 mcg PO ACBREAKFAST REPLACED BY [facility] Ondansetron HCl (Ondansetron 4 Mg/2 Ml Sdv) 4 mg IV Q4H PRN PRN Reason: Nausea/Vomiting Oxycodone HCl (Oxycodone 5 Mg Tab) 5 mg PO Q4H PRN PRN Reason: Pain (moderate 4-6) Oxycodone HCl (Oxycodone 5 Mg Tab) 10 mg PO Q4H PRN PRN Reason: Pain (severe 7-10) Pantoprazole Sodium (Pantoprazole 40 Mg Vial) 40 mg IV Q12H REPLACED BY [facility] Sodium Chloride (Sodium Chloride 0.9% 10 Ml Syringe) 10 ml FLUSH ASDIRECTED PRN PRN Reason: Keep Vein Open Sumatriptan Succinate (Sumatriptan 100 Mg Tab) 100 mg PO Q2H PRN PRN Reason: Headache Vancomycin HCl (Vancomycin 1 Gm Sdv) 2 gm IV .PHARMACY TO DOSE DEVAUGHN Assessment/Plan Comment:: SEPSIS DUE TO COMPLICATED URINARY TRACT INFECTION 49-year-old female with a history of recurrent urinary tract infections in the past. She reports having recently been treated with antibiotics for urinary tract infection. Her antibiotic course reportedly stopped last week. She reports urinary symptoms never really improved. Now, the patient presents with increased nausea and vomiting with fever/chills and persistent urinary symptoms since last night. Given her history of reported resistance and recurrent urinary tract infections, will escalate therapy to meropenem and vancomycin right now. Urine and blood cultures are pending. May be able to discontinue vancomycin in the next day or 2 if patient improves clinically. Requested meropenem 1 g every 8 hours Requested vancomycin per pharmacy Follow urine/blood cultures Patient received 2 L IV fluids in the ER. Continue maintenance fluids and trend metabolic panel as well as CBC. Requested procalcitonin. ABDOMINAL PAIN NAUSEA/VOMITING Patient with complex GI history including Davis-en-Y surgery with plans for follow-up given persistent symptoms. In addition, the patient was treated for p ancreatitis this past April with persistent feelings of upper GI burning and pain with chronic score of 5/10. She reports more recently her pain is 8/10. It has responded to fentanyl though the patient reports Dilaudid actually makes her discomfort worse. Requested fentanyl 25 to 50 mcg every 1 hour as needed for moderate to severe pain Continue oxycodone per oral regimen as tolerated once nausea/vomiting improve Requested Zofran if needed for nausea Requested IV Protonix in place of usual oral Protonix. We will add back oral Protonix as oral intake and nausea improved. Patient requests sips of fluid and ice chips at least. We will order clear liquid diet with advancement of diet as tolerated. DIABETES MELLITUS TYPE 2 Patient typically on Lantus and Jardiance. She plans on discontinuing Jardiance as an outpatient. Requested Lantus 10 units daily as patient takes at home Requested 4 times daily Accu-Cheks with low-dose sliding scale insulin Advance to diabetic diet as tolerated LACTIC ACIDOSIS Due to sepsis. Patient with significant lactate elevation to greater than 4 and associated anion gap metabolic acidosis. 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 Will add back as patient stabilizes. TACHYCARDIA Presumed sinus tachycardia based on history and exam though requested EKG for further evaluation. DVT PROPHYLAXIS Requested prophylactic Lovenox DISPOSITION Patient admitted as an inpatient. She will be initially admitted to the ICU for closer monitoring. Presume hospitalization at least several days with target disposition home.
--- NOTE | 2020-07-09 10:27 | CR ---
CHEST: Portable 07/09/2020 at 8:30 AM CLINICAL HISTORY:Sepsis COMPARISON:04/08/2020 FINDINGS: The heart size, pulmonary vascularity and hilar structures are normal. No infiltrate effusion or pneumothorax is seen. IMPRESSION: No acute cardiopulmonary process.
[2020-07-09] MEDS ORDERED: Vancomycin 1.3 GM in Sodium Chloride 0.9% 250 ML IV ONE (10:30)
[2020-07-09] MEDS ORDERED: Vancomycin 1 GM SDV IV SCH (11:00)
[2020-07-09] MEDS ORDERED: DULoxetine 30 MG Cap PO SCH (11:00)
[2020-07-09] MEDS ORDERED: Levothyroxine 112 MCG Tab PO SCH (11:00)
[2020-07-09] MEDS ORDERED: Enoxaparin 40 MG/0.4 ML Syringe SUBCUT SCH (11:00)
[2020-07-09] MEDS ORDERED: Insulin Glargine,Human Rec. Analog 100 Units/ML 3 ML Pen SUBCUT SCH (11:00)
[2020-07-09] MEDS ORDERED: Pantoprazole 40 MG Vial IV SCH (11:00)
[2020-07-09] MEDS: fentaNYL 100 MCG/2 ML SDV IVPUSH PRN ×3 (11:22→18:34)
[2020-07-09] MEDS: Insulin Lispro 100 Unit/ML 3 ML KwikPen SUBCUT SCH ×3 (11:26→20:19)
[2020-07-09] MEDS ORDERED: Levothyroxine 100 MCG, Levothyroxine 25 MCG, Levothyroxine 50 MCG PO SCH ×3 (11:30)
[2020-07-09] MEDS ORDERED: Acetaminophen 325 MG Tab PO PRN (12:00)
[2020-07-09] MEDS: Lactated Ringers 1,000 ML IV SCH ×2 (13:21→21:24)
[2020-07-09] MEDS ORDERED: Prochlorperazine 10 MG/2 ML SDV IVPUSH PRN (13:50)
[2020-07-09] MEDS: Meropenem 1 GM in Sodium Chloride 0.9% 100 ML IV SCH ×2 (14:05→21:24)
[2020-07-09] MEDS ORDERED: atorvaSTATin 20 MG Tab PO SCH (21:00)
--- NOTE | 2020-07-09 21:08 | PCM.DCSUM1 ---
Discharge Summary - Hospital Course Brief History: 49-year-old female admitted in the morning of 07/09 with sepsis. - Discharge Data Discharge Date: 07/09/20 Discharge Disposition: DC/Tfer to Acute Hospital 02 Condition: Fair - Referral to Home Health Primary Care Physician: PCP None - Patient Instructions Diet: NPO Activity: Bedrest - Discharge Plan *PRESCRIPTION DRUG MONITORING PROGRAM REVIEWED*: Not Applicable *COPY OF PRESCRIPTION DRUG MONITORING REPORT IN PATIENT OLYA: Not Applicable Home Medications: Home Meds Imipramine HCl 50 mg PO BEDTIME 10/22/17 [History] Iron,Carbonyl/Vit C/Vit B12/Fa [Fe C Plus] 1 tab PO DAILY 10/22/17 [History] Levothyroxine 175 mcg PO DAILY 10/22/17 [History] Lisinopril 10 mg PO DAILY 10/22/17 [History] atorvaSTATin [Lipitor] 20 mg PO DAILY 10/22/17 [History] Cholecalciferol (Vitamin D3) [Vitamin D] 1,000 units PO DAILY 01/30/19 [History] Ferrous Sulfate [Ferosul] 1 tab PO DAILY 01/30/19 [History] Methenamine Hippurate [Hiprex] 1 tab PO BID 01/30/19 [History] SUMAtriptan [Imitrex] 1 tab PO DAILY PRN 01/30/19 [History] ondansetron HCL [Ondansetron] 1 tab PO TID PRN 01/30/19 [History] traZODone HCl [Trazodone HCl] 1 tab PO BEDTIME 01/30/19 [History] Cyanocobalamin (Vitamin B12) [Vitamin B12] 1 injection IM Q30D 04/05/20 [History] DULoxetine [Cymbalta] 30 mg PO DAILY 04/05/20 [History] Pantoprazole [ProTONIX] 40 mg PO BID 05/18/20 [History] oxyCODONE 5 mg PO Q4H PRN #10 tablet 05/20/20 [Rx] Forms: ED Department Discharge Referrals: PCP,None [Primary Care Provider] - - Discharge Summary/Plan Comment DC Time >30 min.: Yes (60 minutes) Discharge Summary/Plan Comment: 49-year-old female admitted in the morning of 07/09 with presumptive urosepsis due to a history of recurrent urinary tract infections with resistance. The patient has a history of chronic abdominal pain but reported worse than usual abdominal pain upon admission. Due to her history of resistance, the patient was placed on meropenem and vancomycin. She received a total of 3-1/2 L of IV fluids for her sepsis. Despite the fluid and antibiotics, the patient continued to have elevated lactate levels. Lactate level was 4 upon admission and increased to 6.5 where it remained on reassessment. The patient continued to have rather severe abdominal pain. CT of abdomen and pelvis with contrast performed on admission showed only some peripancreatic changes which were improved from prior admission with pancreatitis. The patient continued to have tachycardia with heart rate in the 110s over the course of her hospitalization though systolic blood pressures decreased from the 130s down to the 90s and 100s. The patient continued to mentate well throughout her stay. Later in the day of admission, the patient's admission blood cultures grew 2/2 gram-negative rods and anaerobic cultures. The patient continued to have severe pain requiring opioid pain management. However concern for the patient's continued abdominal pain with elevated lactate level, decreased blood pressures, and rapid growth from anaerobic cultures, request was made to transfer to a higher level of care. Could consider repeat CT of the abdomen and pelvis with IV contrast as there appears to be some significant pathology intra-abdominally despite rather negative scan report from earlier in the day. Would also want closely available surgeon in case surgical treatment is indicated. I contacted the hospitalist at [facility], , who accepted the patient to a higher level of care. The patient was transported via ALS. - Patient Data Vitals - Most Recent: Last Vital Signs Temp 99.1 F 07/09/20 20:00 Pulse 108 H 07/09/20 20:00 Resp 21 H 07/09/20 20:00 BP 108/76 07/09/20 20:00 Pulse Ox 96 07/09/20 20:00 Weight - Most Recent: 164 lb 4.8 oz I&O - Last 24 hours: Intake & Output 07/09/20 07/09/20 07/09/20 06:59 14:59 22:59 Intake Total 1600 2060 Output Total 200 Balance 1400 2060 Lab Results - Last 24 hrs: Laboratory Results - last 24 hr 07/09/20 07/09/20 07/09/20 Range/Units 06:02 06:02 06:02 WBC 18.3 H (4.5-11.0) K/uL RBC 4.07 (3.30-5.50) M/uL Hgb 12.2 D (12.0-15.0) g/dL Hct 40.0 (36.0-48.0) % MCV 98 (80-98) fL MCH 30 (27-31) pg MCHC 31 L (32-36) % Plt Count 585 H (150-400) K/uL Neut % (Auto) 91 H (36-66) % Lymph % (Auto) 5 L (24-44) % [place] % (Auto) 3 (2-6) % Eos % (Auto) 0 L (2-4) % Baso % (Auto) 0 (0-1) % Sodium 141 (140-148) mmol/L Potassium 4.4 (3.6-5.2) mmol/L Chloride 103 (100-108) mmol/L Carbon Dioxide 23 (21-32) mmol/L Anion Gap 15.2 H (5.0-14.0) mmol/L BUN 11 (7-18) mg/dL Creatinine 0.9 (0.6-1.0) mg/dL Est Cr Clr Drug Dosing 59.15 mL/min Estimated GFR (MDRD) > 60 (>60) Glucose 292 H (74-106) mg/dL Lactic Acid 4.0 H (0.4-2.0) mmol/L Calcium 8.4 L (8.5-10.1) mg/dL Total Bilirubin 0.5 D (0.2-1.0) mg/dL AST 58 H (15-37) U/L ALT 99 H (12-78) U/L Alkaline Phosphatase 275 H (46-116) U/L Total Protein 6.9 (6.4-8.2) g/dL Albumin 2.8 L (3.4-5.0) g/dL Globulin 4.1 H (2.3-3.5) g/dL Albumin/Globulin Ratio 0.7 L (1.2-2.2) Amylase 44 (25-115) U/L Lipase 60 L (73-393) U/L Procalcitonin ng/mL Urine Color (YELLOW) Urine Appearance (CLEAR) Urine pH (5.0-8.0) Ur Specific [place] (1.008-1.030) Urine Protein (NEGATIVE) mg/dL Urine Glucose (UA) (NEGATIVE) mg/dL Urine Ketones (NEGATIVE) mg/dL Urine Occult Blood (NEGATIVE) Urine Nitrite (NEGATIVE) Urine Bilirubin (NEGATIVE) Urine Urobilinogen (0.2-1.0) EU/dL Ur Leukocyte Esterase (NEGATIVE) Urine RBC (0-5) Urine WBC (0-5) Ur Epithelial Cells Amorphous Sediment Urine Bacteria Urine Mucus 07/09/20 07/09/20 07/09/20 Range/Units 08:42 10:11 11:55 WBC (4.5-11.0) K/uL RBC (3.30-5.50) M/uL Hgb (12.0-15.0) g/dL Hct (36.0-48.0) % MCV (80-98) fL MCH (27-31) pg MCHC (32-36) % Plt Count (150-400) K/uL Neut % (Auto) (36-66) % Lymph % (Auto) (24-44) % [place] % (Auto) (2-6) % Eos % (Auto) (2-4) % Baso % (Auto) (0-1) % Sodium (140-148) mmol/L Potassium (3.6-5.2) mmol/L Chloride (100-108) mmol/L Carbon Dioxide (21-32) mmol/L Anion Gap (5.0-14.0) mmol/L BUN (7-18) mg/dL Creatinine (0.6-1.0) mg/dL Est Cr Clr Drug Dosing mL/min Estimated GFR (MDRD) (>60) Glucose (74-106) mg/dL Lactic Acid 6.5 H (0.4-2.0) mmol/L Calcium (8.5-10.1) mg/dL Total Bilirubin (0.2-1.0) mg/dL AST (15-37) U/L ALT (12-78) U/L Alkaline Phosphatase (46-116) U/L Total Protein (6.4-8.2) g/dL Albumin (3.4-5.0) g/dL Globulin (2.3-3.5) g/dL Albumin/Globulin Ratio (1.2-2.2) Amylase (25-115) U/L Lipase (73-393) U/L Procalcitonin 0.07 ng/mL Urine Color Yellow (YELLOW) Urine Appearance Slightly cloudy A (CLEAR) Urine pH 5.5 (5.0-8.0) Ur Specific [place] 1.010 (1.008-1.030) Urine Protein 30 H (NEGATIVE) mg/dL Urine Glucose (UA) 100 H (NEGATIVE) mg/dL Urine Ketones Negative (NEGATIVE) mg/dL Urine Occult Blood Small H (NEGATIVE) Urine Nitrite Positive H (NEGATIVE) Urine Bilirubin Negative (NEGATIVE) Urine Urobilinogen 0.2 (0.2-1.0) EU/dL Ur Leukocyte Esterase Small H (NEGATIVE) Urine RBC 0-5 (0-5) Urine WBC 30-40 H (0-5) Ur Epithelial Cells Few Amorphous Sediment Rare Urine Bacteria Moderate Urine Mucus Not seen 07/09/20 Range/Units 16:55 WBC (4.5-11.0) K/uL RBC (3.30-5.50) M/uL Hgb (12.0-15.0) g/dL Hct (36.0-48.0) % MCV (80-98) fL MCH (27-31) pg MCHC (32-36) % Plt Count (150-400) K/uL Neut % (Auto) (36-66) % Lymph % (Auto) (24-44) % [place] % (Auto) (2-6) % Eos % (Auto) (2-4) % Baso % (Auto) (0-1) % Sodium (140-148) mmol/L Potassium (3.6-5.2) mmol/L Chloride (100-108) mmol/L Carbon Dioxide (21-32) mmol/L Anion Gap (5.0-14.0) mmol/L BUN (7-18) mg/dL Creatinine (0.6-1.0) mg/dL Est Cr Clr Drug Dosing mL/min Estimated GFR (MDRD) (>60) Glucose (74-106) mg/dL Lactic Acid 6.5 H (0.4-2.0) mmol/L Calcium (8.5-10.1) mg/dL Total Bilirubin (0.2-1.0) mg/dL AST (15-37) U/L ALT (12-78) U/L Alkaline Phosphatase (46-116) U/L Total Protein (6.4-8.2) g/dL Albumin (3.4-5.0) g/dL Globulin (2.3-3.5) g/dL Albumin/Globulin Ratio (1.2-2.2) Amylase (25-115) U/L Lipase (73-393) U/L Procalcitonin ng/mL Urine Color (YELLOW) Urine Appearance (CLEAR) Urine pH (5.0-8.0) Ur Specific [place] (1.008-1.030) Urine Protein (NEGATIVE) mg/dL Urine Glucose (UA) (NEGATIVE) mg/dL Urine Ketones (NEGATIVE) mg/dL Urine Occult Blood (NEGATIVE) Urine Nitrite (NEGATIVE) Urine Bilirubin (NEGATIVE) Urine Urobilinogen (0.2-1.0) EU/dL Ur Leukocyte Esterase (NEGATIVE) Urine RBC (0-5) Urine WBC (0-5) Ur Epithelial Cells Amorphous Sediment Urine Bacteria Urine Mucus OSEAS Results - Last 24 hrs: Microbiology 07/09/20 08:19 Aerobic Blood Culture - Preliminary Blood - Venous Anaerobic Blood Culture - Preliminary 07/09/20 08:12 Anaerobic Blood Culture - Preliminary Blood - Venous - Lab Draw Med Orders - Current: Current Medications Acetaminophen (Acetaminophen 325 Mg Tab) 650 mg PO Q4H PRN PRN Reason: Pain (Mild 1-3)/fever Atorvastatin Calcium (Atorvastatin 20 Mg Tab) 20 mg PO BEDTIME COUNT INCLUDES THE [facility] Dextrose/Water (50% Dextrose In Water 50 Ml Syringe) 50 ml IVPUSH ASDIRECTED PRN PRN Reason: Hypoglycemia Duloxetine HCl (Duloxetine 30 Mg Cap) 30 mg PO DAILY COUNT INCLUDES THE [facility] Last Admin: 07/09/20 11:34 Dose: 30 mg Documented by: Enoxaparin Sodium (Enoxaparin 40 Mg/0.4 Ml Syringe) 40 mg SUBCUT Q24H COUNT INCLUDES THE [facility] Last Admin: 07/09/20 11:39 Dose: 40 mg Documented by: Fentanyl (Fentanyl 100 Mcg/2 Ml Sdv) 50 mcg IVPUSH Q1H PRN PRN Reason: Pain (severe 7-10) Last Admin: 07/09/20 18:34 Dose: 50 mcg Documented by: Fentanyl (Fentanyl 100 Mcg/2 Ml Sdv) 25 mcg IVPUSH Q1H PRN PRN Reason: Pain (moderate 4-6) Glucagon (Glucagon,Human Recombinant 1 Mg Vial) 1 mg IM ASDIRECTED PRN PRN Reason: Hypoglycemia Sodium Chloride (Normal Saline) 1,000 mls @ 999 mls/hr IV ASDIRECTED COUNT INCLUDES THE [facility] Last Admin: 07/09/20 10:53 Dose: 999 mls/hr Documented by: Lactated Ringer's (Ringers, Lactated) 1,000 mls @ 125 mls/hr IV ASDIRECTED COUNT INCLUDES THE [facility] Last Admin: 07/09/20 13:21 Dose: 125 mls/hr Documented by: Meropenem 1 gm/ Sodium (Chloride) 100 mls @ 200 mls/hr IV Q8H COUNT INCLUDES THE [facility] Last Admin: 07/09/20 14:05 Dose: 200 mls/hr Documented by: Vancomycin HCl 1 gm/ Sodium (Chloride) 250 mls @ 166.667 mls/hr IV Q12H DEVAUGHN Sodium Chloride (Normal Saline) 1,000 mls @ 500 mls/hr IV ASDIRECTED COUNT INCLUDES THE [facility] Insulin Glargine (Insulin Glargine,Human Rec. Analog 100 Units/Ml 3 Ml Pen) 10 units SUBCUT DAILY COUNT INCLUDES THE [facility] Last Admin: 07/09/20 11:40 Dose: 10 units Documented by: Insulin Human Lispro (Insulin Lispro 100 Unit/Ml 3 Ml Kwikpen) 0 unit SUBCUT QIDACANDBED COUNT INCLUDES THE [facility]; Protocol Last Admin: 07/09/20 20:19 Dose: 1 units Documented by: Levothyroxine Sodium 100 mcg/Levothyroxine Sodium 25 mcg/Levothyroxine Sodium 50 mcg 175 mcg PO ACBREAKFAST COUNT INCLUDES THE [facility] Last Admin: 07/09/20 11:36 Dose: 175 mcg Documented by: Oxycodone HCl (Oxycodone 5 Mg Tab) 5 mg PO Q4H PRN PRN Reason: Pain (moderate 4-6) Oxycodone HCl (Oxycodone 5 Mg Tab) 10 mg PO Q4H PRN PRN Reason: Pain (severe 7-10) Last Admin: 07/09/20 12:27 Dose: 10 mg Documented by: Pantoprazole Sodium (Pantoprazole 40 Mg Vial) 40 mg IV Q12H COUNT INCLUDES THE [facility] Last Admin: 07/09/20 11:46 Dose: 40 mg Documented by: Prochlorperazine Edisylate (Prochlorperazine 10 Mg/2 Ml Sdv) 10 mg IVPUSH Q6H PRN PRN Reason: Nausea/Vomiting Last Admin: 07/09/20 14:38 Dose: 10 mg Documented by: Sodium Chloride (Sodium Chloride 0.9% 10 Ml Syringe) 10 ml FLUSH ASDIRECTED PRN PRN Reason: Keep Vein Open Sumatriptan Succinate (Sumatriptan 100 Mg Tab) 100 mg PO Q2H PRN PRN Reason: Headache Discontinued Medications Acetaminophen (Acetaminophen 500 Mg Tab) 1,000 mg PO NOW ONE Stop: 07/09/20 08:31 Last Admin: 07/09/20 08:30 Dose: 1,000 mg Documented by: Fentanyl (Fentanyl 100 Mcg/2 Ml Sdv) 50 mcg IVPUSH ONETIME ONE Stop: 07/09/20 05:58 Last Admin: 07/09/20 06:08 Dose: 50 mcg Documented by: Fentanyl (Fentanyl 100 Mcg/2 Ml Sdv) 50 mcg IVPUSH ONETIME ONE Stop: 07/09/20 06:37 Last Admin: 07/09/20 06:40 Dose: 50 mcg Documented by: Fentanyl (Fentanyl 100 Mcg/2 Ml Sdv) 50 mcg IVPUSH ONETIME ONE Stop: 07/09/20 08:01 Last Admin: 07/09/20 08:07 Dose: 50 mcg Documented by: Hydromorphone HCl (Hydromorphone 1 Mg/Ml Syringe) 1 mg IVPUSH ONETIME ONE Stop: 07/09/20 07:49 Last Admin: 07/09/20 08:05 Dose: Not Given Documented by: Sodium Chloride (Normal Saline) 1,000 mls @ 1,000 mls/hr IV ASDIRECTED COUNT INCLUDES THE [facility] Last Admin: 07/09/20 06:08 Dose: 1,000 mls/hr Documented by: Sodium Chloride (Normal Saline) 71 mls @ 3.1 mls/sec IV ASDIRECTED COUNT INCLUDES THE [facility] Stop: 07/09/20 16:00 Last Admin: 07/09/20 07:17 Dose: 3.1 mls/sec Documented by: Sodium Chloride (Normal Saline) 1,000 mls @ 999 mls/hr IV ASDIRECTED COUNT INCLUDES THE [facility] Last Admin: 07/09/20 08:06 Dose: 999 mls/hr Documented by: Piperacillin Sod/Tazobactam (Sod 4.5 gm/ Sodium Chloride) 100 mls @ 100 mls/hr IV ONETIME ONE Stop: 07/09/20 09:15 Last Admin: 07/09/20 08:29 Dose: 100 mls/hr Documented by: Vancomycin HCl 1.3 gm/ Sodium (Chloride) 250 mls @ 166.667 mls/hr IV ONETIME ONE Stop: 07/09/20 11:59 Last Admin: 07/09/20 11:13 Dose: 166.667 mls/hr Documented by: Iopamidol (Iopamidol 612 Mg/Ml 500 Ml Multipack Bottle) 104 ml IV ONETIME ONE Stop: 07/09/20 06:54 Last Admin: 07/09/20 07:17 Dose: 104 ml Documented by: Ketorolac Tromethamine (Ketorolac 30 Mg/Ml Sdv) 30 mg IVPUSH ONETIME ONE Stop: 07/09/20 08:49 Last Admin: 07/09/20 08:59 Dose: 30 mg Documented by: Ondansetron HCl (Ondansetron 4 Mg/2 Ml Sdv) 4 mg IVPUSH ONETIME ONE Stop: 07/09/20 05:58 Last Admin: 07/09/20 06:08 Dose: 4 mg Documented by: Ondansetron HCl (Ondansetron 4 Mg/2 Ml Sdv) 4 mg IV Q4H PRN PRN Reason: Nausea/Vomiting Last Admin: 07/09/20 13:16 Dose: 4 mg Documented by: Vancomycin HCl (Vancomycin 1 Gm Sdv) 2 gm IV .PHARMACY TO DOSE DEVAUGHN
== END 2020-07-09 21:28 | DRG 872 ==
LOC: JP.ED 05:26 → JP.ICU 09:51
PROVIDERS: ADMIT Hospitalist; ATTEND Hospitalist
PROC: XW033N5 Introduction of Meropenem-vaborbactam Anti-infective into Peripheral Vein, Percutaneous Approach, New Technology Group 5 (ICD-10-PCS; principal; 2020-07-09)
DX: A41.50 Gram-negative sepsis, unspecified (principal); K86.1 Other chronic pancreatitis; E78.00 Pure hypercholesterolemia, unspecified; I10 Essential (primary) hypertension; K21.9 Gastro-esophageal reflux disease without esophagitis; M81.0 Age-related osteoporosis without current pathological fracture; M79.7 Fibromyalgia; Z20.822 Contact with and (suspected) exposure to COVID-19; F32.9 Major depressive disorder, single episode, unspecified; K27.9 Peptic ulcer, site unspecified, unspecified as acute or chronic, without hemorrhage or perforation; D50.9 Iron deficiency anemia, unspecified; E11.9 Type 2 diabetes mellitus without complications; E53.8 Deficiency of other specified B group vitamins; E03.9 Hypothyroidism, unspecified; Z88.1 Allergy status to other antibiotic agents; Z88.5 Allergy status to narcotic agent; Z79.890 Hormone replacement therapy; Z79.899 Other long term (current) drug therapy; Z87.442 Personal history of urinary calculi; Z90.49 Acquired absence of other specified parts of digestive tract; Z98.84 Bariatric surgery status
CPT/HCPCS: 36415; 71045; 71045-26; 74177; 80053; 81001; 82150; 82962; 83605; 83690; 84145; 85025; 87040; 87077; 87086; 87088; 87186; 93005; 96365; 96375; 96376; 99285; 99285-25; A9270-GY; C9113; J0780; J1650; J1815; J1815-GY; J1885; J2185; J2405; J2543; J3010; J3370; J7030; J7050; J7120; Q9967; U0002

== ENCOUNTER 2020-08-21 05:28 | Day surgery (SDC) | payer MEDICAID ==
[2020-08-21] MEDS ORDERED: Lactated Ringers 1,000 ML IV ONE (06:00)
[2020-08-21] MEDS ORDERED: Cyanocobalamin (Vitamin B12) 1,000 MCG/ML SDV IM ONE (06:00)
[2020-08-21 06:38] LABS: CORONAVIRUS COVID-19 NAA POSITIVE (NEGATIVE)
[2020-08-21] MEDS ORDERED: MVI, Adult with Vitamin K 10 ML, Thiamine 200 MG, Zinc/Copper/Manganese/Selenium 1 ML i... IV ONE ×4 (07:00)
[2020-08-21] MEDS ORDERED: Alum Hydrox/Mag Hydrox/Simeth 360 ML, Lidocaine 2% 60 ML PO SCH ×2 (11:00)
--- NOTE | 2020-08-25 17:06 | PN ---
DATE OF SERVICE: 08/21/2020 This is a 49-year-old who was admitted for upper endoscopy to evaluate some ongoing upper abdominal pain. Preoperative testing for COVID was positive. The patient was felt to be not acute enough that urgent procedure could not be delayed for 2 weeks and given this the procedure was canceled. She will be given 2 vials of the Maalox plus viscous lidocaine to take on a p.r.n. basis, and schedule for the upper endoscopy in 2 weeks. Gonzales Sheehan MD /[id number]
== END 2020-08-21 07:35 | disposition home or self-care (01) ==
LOC: JP.SDS 05:28
PROVIDERS: ATTEND Surgery
DX: R10.13 Epigastric pain (principal); U07.1 COVID-19; Z53.09 Procedure and treatment not carried out because of other contraindication
CPT/HCPCS: 0241U; 36415; 80053; 82607; 82728; 82746; 83735; 84100; 85027; A9270

== ENCOUNTER 2020-09-04 07:50 | Day surgery (SDC) | payer MEDICAID ==
[2020-09-04] MEDS ORDERED: Lactated Ringers 1,000 ML IV ONE (08:02)
[2020-09-04] MEDS ORDERED: fentaNYL 100 MCG/2 ML SDV ONE (08:09)
[2020-09-04] MEDS ORDERED: Propofol 200 MG/20 ML SDV ONE (08:10)
[2020-09-04] MEDS ORDERED: Midazolam 1 MG/ML 2 ML SDV ONE (08:10)
[2020-09-04] MEDS ORDERED: Cyanocobalamin (Vitamin B12) 1,000 MCG/ML SDV IM ONE (08:27)
[2020-09-04] MEDS ORDERED: Dextrose 5%-Lactated Ringers 1,000 ML IV SCH (09:00)
[2020-09-04] MEDS ORDERED: MVI, Adult with Vitamin K 10 ML, Thiamine 200 MG, Chromium/Copper/Mang/Selen/Zn 1 ML in... IV ONE ×4 (09:15)
[2020-09-04] MEDS ORDERED: Lactated Ringers 1,000 ML IV SCH (09:15)
[2020-09-11 21:07] LABS: 6-ACETYLMORPHINE Negative (.); CODEINE Negative (.); DIHYDROCODEINE Negative (.); HYDROCODONE Negative (.); HYDROMORPHONE Negative (.); MORPHINE Negative (.); OPIATE CONFIRMATION Negative (.)
--- NOTE | 2020-09-23 14:14 | OR ---
DATE OF PROCEDURE: 09/04/2020 SURGEON: Gonzales Sheehan MD PREOPERATIVE DIAGNOSES: 1. Mid and upper abdominal pain. 2. History of colon polyps. POSTOPERATIVE DIAGNOSES: 1. Mid and upper abdominal pain. 2. Normal upper gastrointestinal endoscopy, status post Davis-en-Y gastric bypass. 3. Normal colonoscopy. 4. History of colon polyps. OPERATIVE PROCEDURES: 1. Upper gastrointestinal endoscopy. 2. Flexible colonoscopy. ANESTHESIA: IV sedation. INDICATIONS FOR PROCEDURE: The patient presents with some upper abdominal pain. This is located in the epigastrium and right upper quadrant. She does have history of marginal ulcer, status post Davis-en-Y gastric bypass in the past and also has a history of colon polyps. Plan is to proceed with an upper and lower endoscopy for further diagnostic evaluation with biopsies and/or polypectomy as indicated. Potential risks including bleeding and perforation were discussed, and the patient wishes to proceed. DETAILS OF PROCEDURE: The patient was taken to the operating room and placed in a left lateral decubitus position. IV sedation was administered after which the upper GI endoscope was passed orally through the length of esophagus, into the gastric pouch, from there, through the gastrojejunostomy, roughly 20 cm into the Davis limb. Overall, this examination was generally normal. The patient does have history of previous marginal ulcer, and this was absent at this point, and the upper endoscopic procedure was then completed. The patient then had a digital rectal exam, which was unremarkable. Colonoscope was passed through the rectum with retroflexion revealing uncomplicated hemorrhoidal columns. The scope was then eventually passed to the cecum. The prep was quite good. Only a small amount of stool was present. To that level, no abnormalities were noted. Specifically, there were no areas of diverticulosis. No areas of colitis, and no polyps or other signs of neoplasia. Scope was then withdrawn, the above findings reconfirmed, and the procedure then concluded. 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 We would continue with present medications, which include Protonix and Carafate. It would appear at this point that the patient's colon and gastric bypass anatomy are not likely accounting for any of the ongoing symptoms. Gonzales Sheehan MD /[id number]
== END 2020-09-04 11:33 | disposition home or self-care (01) ==
LOC: JP.SDS 07:50
PROVIDERS: ATTEND Surgery
DX: Z12.11 Encounter for screening for malignant neoplasm of colon (principal); K64.9 Unspecified hemorrhoids; R10.13 Epigastric pain; K21.9 Gastro-esophageal reflux disease without esophagitis; I10 Essential (primary) hypertension; E11.9 Type 2 diabetes mellitus without complications
CPT/HCPCS: 36415; 43235; 45378; 80307; 84703; J2250; J2704; J3010; J3420; J7120

== ENCOUNTER 2021-06-28 11:55 | Emergency (ER) | payer MEDICAID ==
[2021-06-28] MEDS ORDERED: Sodium Chloride 0.9% 10 ML Syringe FLUSH PRN (14:05)
[2021-06-28] MEDS ORDERED: Lactated Ringers 1,000 ML IV SCH (14:15)
[2021-06-28] MEDS ORDERED: Iopamidol 612 MG/ML 100 ML Bottle IV PRN (14:25)
[2021-06-28] MEDS ORDERED: Sodium Chloride 0.9% 100 ML IV SCH (14:30)
[2021-06-28] MEDS ORDERED: fentaNYL 100 MCG/2 ML SDV IVPUSH ONE ×2 (14:36→15:36)
[2021-06-28] MEDS ORDERED: Scopolamine 1.5 MG Transdermal Patch TRDERM PRN (16:11)
== END 2021-06-28 17:00 | disposition home or self-care (01) ==
LOC: JP.ED 11:55
DX: R10.11 Right upper quadrant pain (principal); E78.00 Pure hypercholesterolemia, unspecified; I10 Essential (primary) hypertension; E11.9 Type 2 diabetes mellitus without complications; E03.9 Hypothyroidism, unspecified; Z88.1 Allergy status to other antibiotic agents; Z91.048 Other nonmedicinal substance allergy status; Z88.5 Allergy status to narcotic agent; Z79.899 Other long term (current) drug therapy; Z88.4 Allergy status to anesthetic agent
CPT/HCPCS: 36415; 74177; 80053; 81001; 82550; 83605; 83690; 84145; 84484; 85025; 87040; 96374; 96376; 99283; 99284-25; A9270-GY; J3010; J7120; Q9967

== ENCOUNTER 2021-10-23 12:05 | Inpatient (IN) | payer MEDICAID ==
[2021-10-23] MEDS ORDERED: Sodium Chloride 0.9% 10 ML Syringe FLUSH PRN ×3 (13:06→16:46)
[2021-10-23] MEDS ORDERED: Alum Hydrox/Mag Hydrox/Simeth 15 ML, Lidocaine 2% 15 ML PO ONE ×2 (13:07)
[2021-10-23] MEDS ORDERED: Famotidine 20 MG/2 ML SDV IVPUSH ONE (13:07)
[2021-10-23] MEDS ORDERED: Metoclopramide 10 MG/2 ML SDV IVPUSH ONE (13:07)
[2021-10-23] MEDS ORDERED: Lactated Ringers 1,000 ML IV SCH (13:15)
[2021-10-23 13:53] LABS: ESTIMATED GFR 77 mL/min (>60)
[2021-10-23] MEDS ORDERED: Sodium Chloride 0.9% 50 ML IV ONE (14:34)
[2021-10-23] MEDS ORDERED: Iopamidol 612 MG/ML 100 ML Bottle IV PRN (14:34)
[2021-10-23] MEDS ORDERED: Insulin Regular, Human 100 Units/ML 3 ML Vial SUBCUT ONE (15:35)
[2021-10-23] MEDS ORDERED: Glucagon,Human Recombinant 1 MG Vial IM PRN ×2 (15:35→16:46)
[2021-10-23] MEDS ORDERED: 50% Dextrose in Water 50 ML Syringe IVPUSH PRN ×2 (15:35→16:46)
[2021-10-23] MEDS ORDERED: Insulin NPH/Insulin Regular,Human 70-30 100 Units/ML 10 ML Vial SUBCUT SCH (16:30)
[2021-10-23 16:43] LABS: CORONAVIRUS COVID-19 NAA NEGATIVE (NEGATIVE)
[2021-10-23] MEDS ORDERED: Acetaminophen 325 MG Tab PO PRN (16:46)
[2021-10-23] MEDS ORDERED: Cyanocobalamin (Vitamin B12) 1,000 MCG/ML SDV IM SCH (16:46)
[2021-10-23] MEDS ORDERED: Non-Formulary Medication 1 Each (Cholecalciferol (Vitamin D3) [Vitamin D] 5,000 UNIT Table PO SCH (16:46)
[2021-10-23] MEDS ORDERED: fentaNYL 50 MCG/ML SDV IVPUSH PRN (16:46)
[2021-10-23] MEDS ORDERED: Glucose Gel 15 GM in 37.5 GM Tube PO PRN (16:46)
[2021-10-23] MEDS ORDERED: 50% Dextrose in Water 50 ML Syringe IV PRN (16:46)
[2021-10-23] MEDS: Lactated Ringers 1,000 ML IV SCH (17:49)
[2021-10-23] MEDS: Insulin Lispro 100 Unit/ML 3 ML KwikPen SUBCUT SCH ×2 (17:54→21:25)
[2021-10-23] MEDS: Sucralfate 1 GM Tab PO SCH ×2 (18:05→19:55)
[2021-10-23] MEDS: Acetaminophen/HYDROcodone 325-5 MG Tab PO PRN ×2 (19:55→23:56)
[2021-10-23] MEDS ORDERED: atorvaSTATin 10 MG Tab PO SCH (21:00)
[2021-10-23] MEDS: atorvaSTATin 20 MG Tab PO SCH (21:26)
[2021-10-23] MEDS: Amitriptyline 10 MG Tab PO SCH (21:27)
[2021-10-23] MEDS: traZODone 50 MG Tab PO SCH (21:27)
[2021-10-23] MEDS: Pantoprazole 40 MG Tab.CR PO SCH (21:27)
[2021-10-24] MEDS: Acetaminophen/HYDROcodone 325-5 MG Tab PO PRN ×5 (04:00→21:44)
[2021-10-24] MEDS: Lactated Ringers 1,000 ML IV SCH ×3 (04:01→23:08)
[2021-10-24] MEDS: Sucralfate 1 GM Tab PO SCH ×4 (07:34→19:40)
[2021-10-24] MEDS: Insulin Lispro 100 Unit/ML 3 ML KwikPen SUBCUT SCH ×6 (07:36→21:41)
[2021-10-24] MEDS: Ondansetron 4 MG/2 ML SDV IV PRN ×4 (07:41→21:49)
[2021-10-24] MEDS ORDERED: Ferrous Fumarate/Vitamin C 200-125 MG Tab PO SCH (09:00)
[2021-10-24] MEDS: Insulin Glargine,Human Rec. Analog 100 Units/ML 3 ML Pen SUBCUT SCH (09:19)
[2021-10-24] MEDS: Levothyroxine 100 MCG Tab PO SCH (09:27)
[2021-10-24] MEDS: Pantoprazole 40 MG Tab.CR PO SCH ×2 (09:28→21:43)
[2021-10-24] MEDS: DULoxetine 30 MG Cap PO SCH (09:28)
[2021-10-24] MEDS: VESICARE PO SCH (09:28)
[2021-10-24] MEDS ORDERED: MVI, Adult with Vitamin K 10 ML, Thiamine 200 MG, Zinc/Copper/Manganese/Selenium 1 ML i... IV ONE ×4 (09:30)
[2021-10-24] MEDS: Magnesium Sulfate/Water 2 GM/50 ML BAG IV SCH ×3 (09:38→21:49)
[2021-10-24] MEDS ORDERED: Sodium Ferric Gluconate Cmplex 250 MG in Sodium Chloride 0.9% 100 ML IV ONE (12:15)
[2021-10-24] MEDS: traZODone 50 MG Tab PO SCH (21:43)
[2021-10-24] MEDS: Amitriptyline 10 MG Tab PO SCH (21:43)
[2021-10-24] MEDS: atorvaSTATin 20 MG Tab PO SCH (21:44)
[2021-10-25] MEDS: Acetaminophen/HYDROcodone 325-5 MG Tab PO PRN (03:27)
[2021-10-25] MEDS: Magnesium Sulfate/Water 2 GM/50 ML BAG IV SCH ×4 (03:28→21:13)
[2021-10-25 06:53] LABS: ESTIMATED GFR 77 mL/min (>60)
[2021-10-25] MEDS: Sucralfate 1 GM Tab PO SCH ×4 (07:15→20:26)
[2021-10-25] MEDS ORDERED: Sodium Ferric Gluconate Cmplex 250 MG in Sodium Chloride 0.9% 100 ML IV ONE (08:00)
[2021-10-25] MEDS ORDERED: Thiamine 200 MG/2 ML MDV IM ONE (08:00)
[2021-10-25] MEDS ORDERED: Cyanocobalamin (Vitamin B12) 1,000 MCG/ML SDV IM ONE (08:00)
[2021-10-25] MEDS: Insulin Lispro 100 Unit/ML 3 ML KwikPen SUBCUT SCH ×4 (08:00→21:09)
[2021-10-25] MEDS: DULoxetine 30 MG Cap PO SCH (09:49)
[2021-10-25] MEDS: Potassium Chloride 20 MEQ Tab.ER PO SCH ×2 (09:49→21:11)
[2021-10-25] MEDS: Pantoprazole 40 MG Tab.CR PO SCH ×2 (09:50→21:11)
[2021-10-25] MEDS: VESICARE PO SCH (09:51)
[2021-10-25] MEDS: Levothyroxine 100 MCG Tab PO SCH (09:51)
[2021-10-25] MEDS: hydrOXYzine HCl 25 MG Tab PO PRN ×4 (09:55→23:07)
[2021-10-25] MEDS ORDERED: MVI, Adult with Vitamin K 10 ML, Thiamine 200 MG, Zinc/Copper/Manganese/Selenium 1 ML i... IV ONE ×4 (11:00)
[2021-10-25] MEDS: Insulin Glargine,Human Rec. Analog 100 Units/ML 3 ML Pen SUBCUT SCH (12:31)
[2021-10-25] MEDS: Lactated Ringers 1,000 ML IV SCH ×2 (15:07→23:08)
[2021-10-25] MEDS: Amitriptyline 10 MG Tab PO SCH (21:11)
[2021-10-25] MEDS: traZODone 50 MG Tab PO SCH (21:11)
[2021-10-25] MEDS: atorvaSTATin 20 MG Tab PO SCH (21:11)
[2021-10-26] MEDS: hydrOXYzine HCl 25 MG Tab PO PRN ×2 (03:30→07:31)
[2021-10-26] MEDS: Magnesium Sulfate/Water 2 GM/50 ML BAG IV SCH (04:49)
[2021-10-26 05:12] LABS: ESTIMATED GFR 89 mL/min (>60)
[2021-10-26] MEDS: Sucralfate 1 GM Tab PO SCH (07:30)
[2021-10-26] MEDS: Insulin Lispro 100 Unit/ML 3 ML KwikPen SUBCUT SCH (08:55)
[2021-10-26] MEDS: DULoxetine 30 MG Cap PO SCH (08:55)
[2021-10-26] MEDS: Potassium Chloride 20 MEQ Tab.ER PO SCH (08:56)
[2021-10-26] MEDS: Insulin Glargine,Human Rec. Analog 100 Units/ML 3 ML Pen SUBCUT SCH (08:56)
[2021-10-26] MEDS: VESICARE PO SCH (08:58)
[2021-10-26] MEDS: Pantoprazole 40 MG Tab.CR PO SCH (08:58)
[2021-10-26] MEDS: Levothyroxine 100 MCG Tab PO SCH (08:58)
== END 2021-10-26 10:08 | disposition home or self-care (01) | DRG 392 ==
LOC: JP.ED 12:05 → JP.MS 15:59
PROVIDERS: ADMIT Hospitalist; ATTEND Surgery
DX: R10.9 Unspecified abdominal pain (principal); E87.2 Acidosis; E51.9 Thiamine deficiency, unspecified; R16.0 Hepatomegaly, not elsewhere classified; E03.9 Hypothyroidism, unspecified; E11.9 Type 2 diabetes mellitus without complications; D50.9 Iron deficiency anemia, unspecified; E86.0 Dehydration; E78.00 Pure hypercholesterolemia, unspecified; I10 Essential (primary) hypertension; K21.9 Gastro-esophageal reflux disease without esophagitis; M79.7 Fibromyalgia; M81.0 Age-related osteoporosis without current pathological fracture; F32.A Depression, unspecified; G89.29 Other chronic pain; Z20.822 Contact with and (suspected) exposure to COVID-19; E55.9 Vitamin D deficiency, unspecified; Z90.89 Acquired absence of other organs; Z86.010 Personal history of colon polyps; Z87.11 Personal history of peptic ulcer disease; Z91.09 Other allergy status, other than to drugs and biological substances; Z88.5 Allergy status to narcotic agent; Z91.19 Patient's noncompliance with other medical treatment and regimen; Z98.84 Bariatric surgery status; Z90.49 Acquired absence of other specified parts of digestive tract; Z79.890 Hormone replacement therapy; Z88.1 Allergy status to other antibiotic agents; Z79.899 Other long term (current) drug therapy; Z79.4 Long term (current) use of insulin; Z87.440 Personal history of urinary (tract) infections; Z98.51 Tubal ligation status
CPT/HCPCS: 0241U; 36415; 74177; 74177-26; 80048; 80053; 81001; 82150; 82525; 82607; 82728; 82746; 82947; 83605; 83690; 83735; 84100; 84145; 84425; 84443; 84590; 84630; 85025; 85027; 86140; 96361; 96374; 99222; 99285; 99285-25; A9270-GY; J1815; J1815-GY; J2405; J2765; J2916; J3010; J3411; J3420; J3475; J3490; J7120; Q9967

== ENCOUNTER 2021-10-27 14:03 | Emergency (ER) | payer MEDICAID ==
[2021-10-27 15:42] LABS: ESTIMATED GFR 77 mL/min (>60)
[2021-10-27] MEDS ORDERED: Sodium Chloride 0.9% 100 ML IV ONE (17:15)
[2021-10-27] MEDS ORDERED: Iopamidol 612 MG/ML 100 ML Bottle IV SCH (17:15)
[2021-10-27] MEDS ORDERED: Sodium Chloride 0.9% 10 ML Syringe FLUSH ONE (17:15)
== END 2021-10-27 18:33 | disposition home or self-care (01) ==
LOC: JP.ED 14:03
DX: R10.11 Right upper quadrant pain (principal); R55 Syncope and collapse; I10 Essential (primary) hypertension; E78.00 Pure hypercholesterolemia, unspecified; K21.9 Gastro-esophageal reflux disease without esophagitis; E11.9 Type 2 diabetes mellitus without complications; Z79.4 Long term (current) use of insulin; Z79.899 Other long term (current) drug therapy
CPT/HCPCS: 36415; 74177; 80053; 83605; 83690; 85025; 99282; 99284; J3490; Q9967

== ENCOUNTER 2022-07-19 13:39 | Inpatient (IN) | payer MEDICAID ==
[2022-07-19] MEDS ORDERED: Sodium Chloride 0.9% 10 ML Syringe FLUSH PRN (13:40)
[2022-07-19] MEDS ORDERED: Ondansetron 4 MG/2 ML SDV IVPUSH ONE (14:22)
[2022-07-19] MEDS ORDERED: fentaNYL 100 MCG/2 ML SDV IVPUSH ONE (14:22)
[2022-07-19] MEDS ORDERED: Sodium Chloride 0.9% 1,000 ML IV ONE (14:28)
[2022-07-19 14:34] LABS: ESTIMATED GFR 104 mL/min (>60)
[2022-07-19] MEDS ORDERED: Iopamidol 612 MG/ML 100 ML Bottle IV ONE (14:35)
[2022-07-19] MEDS ORDERED: Sodium Chloride 0.9% 50 ML IV ONE (14:35)
[2022-07-19] MEDS: Sodium Chloride 0.9% 10 ML Syringe FLUSH ONE ×2 (14:54→18:39)
[2022-07-19] MEDS ORDERED: Acetaminophen/HYDROcodone 325-10 MG Tab PO ONE (17:05)
[2022-07-19 17:32] LABS: CORONAVIRUS COVID-19 NAA NEGATIVE (NEGATIVE)
[2022-07-19] MEDS ORDERED: Acetaminophen 325 MG Tab PO PRN (17:58)
[2022-07-19] MEDS: Ketorolac 30 MG/ML SDV IVPUSH PRN (18:32)
[2022-07-19] MEDS: Lactated Ringers 1,000 ML IV SCH (18:38)
[2022-07-19] MEDS: LORazepam 2 MG/ML SDV IVPUSH PRN (18:38)
[2022-07-19] MEDS ORDERED: Pantoprazole 40 MG Tab.CR PO SCH (18:45)
[2022-07-19] MEDS: Sucralfate 1 GM Tab PO SCH (20:13)
[2022-07-19] MEDS: fentaNYL 100 MCG/2 ML SDV IVPUSH PRN ×2 (20:15→22:39)
[2022-07-19] MEDS: Insulin Lispro 100 Unit/ML 3 ML KwikPen SUBCUT SCH (20:16)
[2022-07-19] MEDS ORDERED: Amitriptyline 10 MG Tab PO SCH (21:00)
[2022-07-19] MEDS: Acetaminophen/HYDROcodone 325-10 MG Tab PO PRN (21:55)
[2022-07-20] MEDS: Pantoprazole 40 MG Vial IVPUSH SCH ×3 (00:30→17:03)
[2022-07-20] MEDS: traZODone 50 MG Tab PO SCH (00:31)
[2022-07-20] MEDS: Dicyclomine 10 MG Cap PO SCH ×4 (00:32→23:30)
[2022-07-20] MEDS: Ondansetron 4 MG/2 ML SDV IV PRN ×2 (00:32→10:53)
[2022-07-20] MEDS: fentaNYL 100 MCG/2 ML SDV IVPUSH PRN ×8 (00:32→22:26)
[2022-07-20] MEDS: Ketorolac 30 MG/ML SDV IVPUSH PRN ×4 (00:33→23:34)
[2022-07-20] MEDS: Acetaminophen/HYDROcodone 325-10 MG Tab PO PRN ×2 (02:14→07:12)
[2022-07-20 05:06] LABS: ESTIMATED GFR 108 mL/min (>60)
[2022-07-20] MEDS: Lactated Ringers 1,000 ML IV SCH ×3 (05:34→23:37)
[2022-07-20] MEDS ORDERED: Levothyroxine 100 MCG Tab PO SCH (07:30)
[2022-07-20] MEDS: Trospium 20 MG Tab PO SCH ×2 (08:20→23:30)
[2022-07-20] MEDS: Potassium Chloride 10 MEQ in Premix Bag 1 BAG IV SCH ×4 (08:27→11:59)
[2022-07-20] MEDS ORDERED: DULoxetine 30 MG Cap PO SCH (09:00)
[2022-07-20] MEDS ORDERED: SOLIFENACIN SUCCINATE 10 MG PO SCH (09:00)
[2022-07-20] MEDS ORDERED: Lisinopril 10 MG Tab PO SCH (09:00)
[2022-07-20] MEDS: Insulin Lispro 100 Unit/ML 3 ML KwikPen SUBCUT SCH ×4 (09:01→22:29)
[2022-07-20] MEDS: Liraglutide (rDNA Origin) 0.6 MG/0.1 ML 3 ML Pen SUBCUT SCH (09:02)
[2022-07-20] MEDS: Sucralfate 1 GM Tab PO SCH ×3 (10:55→22:31)
[2022-07-20] MEDS ORDERED: Lisinopril 10 MG Tab PO ONE (11:33)
[2022-07-20] MEDS: Acetaminophen/HYDROcodone 325-7.5 MG Tab PO PRN ×3 (12:08→21:01)
[2022-07-20] MEDS: FLUoxetine 20 MG Cap PO SCH (12:08)
[2022-07-21] MEDS: traZODone 50 MG Tab PO SCH (00:39)
[2022-07-21] MEDS: fentaNYL 100 MCG/2 ML SDV IVPUSH PRN ×5 (00:40→21:15)
[2022-07-21] MEDS: Acetaminophen/HYDROcodone 325-7.5 MG Tab PO PRN ×2 (02:03→05:59)
[2022-07-21] MEDS: Ondansetron 4 MG/2 ML SDV IV PRN (07:22)
[2022-07-21] MEDS: Insulin Lispro 100 Unit/ML 3 ML KwikPen SUBCUT SCH ×4 (07:40→21:12)
[2022-07-21] MEDS: Sucralfate 1 GM Tab PO SCH (07:42)
[2022-07-21] MEDS: Levothyroxine 100 MCG Tab PO SCH (07:43)
[2022-07-21] MEDS: Pantoprazole 40 MG Vial IVPUSH SCH ×2 (07:46→16:25)
[2022-07-21] MEDS: Lisinopril 20 MG Tab PO SCH (08:01)
[2022-07-21] MEDS: Dicyclomine 10 MG Cap PO SCH ×3 (09:03→21:16)
[2022-07-21] MEDS: FLUoxetine 20 MG Cap PO SCH (09:04)
[2022-07-21] MEDS: Trospium 20 MG Tab PO SCH ×2 (09:04→21:17)
[2022-07-21] MEDS: Liraglutide (rDNA Origin) 0.6 MG/0.1 ML 3 ML Pen SUBCUT SCH (09:05)
[2022-07-21] MEDS: Lactated Ringers 1,000 ML IV SCH (09:08)
[2022-07-21] MEDS: Ketorolac 30 MG/ML SDV IVPUSH PRN (09:25)
[2022-07-21] MEDS: Acetaminophen/HYDROcodone 325-10 MG Tab PO PRN ×4 (10:05→23:26)
[2022-07-21] MEDS ORDERED: Folic Acid 50 MG/10 ML MDV IV SCH (11:00)
[2022-07-21] MEDS: Sucralfate Suspension 1 GM/10 ML Cup PO SCH ×3 (11:42→19:34)
[2022-07-21] MEDS ORDERED: MVI, Adult with Vitamin K 10 ML in Sodium Chloride 0.9% 1,000 ML IV SCH ×2 (12:00)
[2022-07-21] MEDS: Thiamine 100 MG in Sodium Chloride 0.9% 100 ML IV SCH (12:40)
[2022-07-21] MEDS: Folic Acid 1 MG in Sodium Chloride 0.9% 50 ML IV SCH (13:16)
[2022-07-21] MEDS: Ondansetron 4 MG Tab.DIS PO PRN (23:27)
[2022-07-22] MEDS: traZODone 50 MG Tab PO SCH ×2 (01:05→23:12)
[2022-07-22] MEDS: fentaNYL 100 MCG/2 ML SDV IVPUSH PRN ×3 (04:11→12:16)
[2022-07-22 05:42] LABS: ESTIMATED GFR 108 mL/min (>60)
[2022-07-22] MEDS: Sucralfate Suspension 1 GM/10 ML Cup PO SCH ×4 (07:33→20:59)
[2022-07-22] MEDS: Levothyroxine 100 MCG Tab PO SCH (07:38)
[2022-07-22] MEDS: Ondansetron 4 MG/2 ML SDV IV PRN (07:41)
[2022-07-22] MEDS: Pantoprazole 40 MG Vial IVPUSH SCH ×2 (07:47→16:06)
[2022-07-22] MEDS: Insulin Lispro 100 Unit/ML 3 ML KwikPen SUBCUT SCH ×2 (07:52→13:19)
[2022-07-22] MEDS ORDERED: Lactated Ringers 1,000 ML IV SCH (09:00)
[2022-07-22] MEDS: Dicyclomine 10 MG Cap PO SCH ×3 (09:31→20:59)
[2022-07-22] MEDS: Folic Acid 1 MG in Sodium Chloride 0.9% 50 ML IV SCH (09:31)
[2022-07-22] MEDS: Lisinopril 20 MG Tab PO SCH (09:31)
[2022-07-22] MEDS: Trospium 20 MG Tab PO SCH ×2 (09:34→21:00)
[2022-07-22] MEDS: FLUoxetine 20 MG Cap PO SCH (09:34)
[2022-07-22] MEDS: Thiamine 100 MG in Sodium Chloride 0.9% 100 ML IV SCH (09:36)
[2022-07-22] MEDS: Liraglutide (rDNA Origin) 0.6 MG/0.1 ML 3 ML Pen SUBCUT SCH (09:46)
[2022-07-22] MEDS: Acetaminophen/HYDROcodone 325-10 MG Tab PO PRN ×3 (10:14→19:47)
[2022-07-22] MEDS ORDERED: Midazolam 1 MG/ML 2 ML SDV ONE (11:14)
[2022-07-22] MEDS ORDERED: fentaNYL 50 MCG/ML SDV ONE (11:14)
[2022-07-22] MEDS ORDERED: Propofol 200 MG/20 ML SDV ONE (11:14)
[2022-07-22] MEDS ORDERED: Lactated Ringers 1,000 ML ONE (11:29)
[2022-07-22] MEDS: Sodium Ferric Gluconate Cmplex 250 MG in Sodium Chloride 0.9% 100 ML IV SCH (12:18)
[2022-07-22] MEDS ORDERED: Iopamidol 612 MG/ML 100 ML Bottle IV ONE (14:35)
[2022-07-22] MEDS ORDERED: Sodium Chloride 0.9% 10 ML Syringe FLUSH ONE (14:35)
[2022-07-22] MEDS ORDERED: Sodium Chloride 0.9% 50 ML IV ONE (14:35)
[2022-07-22] MEDS: Ondansetron 4 MG Tab.DIS PO PRN (14:51)
[2022-07-22] MEDS: MVI, Adult with Vitamin K 10 ML in Sodium Chloride 0.9% 1,000 ML IV SCH ×2 (16:00)
[2022-07-22] MEDS ORDERED: Bisacodyl 10 MG Supp RECTAL ONE (16:30)
[2022-07-22] MEDS: Meropenem 1 GM in Sodium Chloride 0.9% 100 ML IV SCH (17:07)
[2022-07-23] MEDS: Acetaminophen/HYDROcodone 325-10 MG Tab PO PRN ×6 (00:47→22:01)
[2022-07-23] MEDS: Meropenem 1 GM in Sodium Chloride 0.9% 100 ML IV SCH ×3 (00:48→16:31)
[2022-07-23 06:15] LABS: ESTIMATED GFR 89 mL/min (>60)
[2022-07-23] MEDS: LORazepam 2 MG/ML SDV IVPUSH PRN (08:41)
[2022-07-23] MEDS: Levothyroxine 100 MCG Tab PO SCH (09:20)
[2022-07-23] MEDS: Dicyclomine 10 MG Cap PO SCH ×3 (09:20→21:09)
[2022-07-23] MEDS: Sucralfate Suspension 1 GM/10 ML Cup PO SCH ×4 (09:20→21:09)
[2022-07-23] MEDS: Lisinopril 20 MG Tab PO SCH (09:21)
[2022-07-23] MEDS: FLUoxetine 20 MG Cap PO SCH (09:28)
[2022-07-23] MEDS: Trospium 20 MG Tab PO SCH ×2 (09:29→21:09)
[2022-07-23] MEDS: Pantoprazole 40 MG Vial IVPUSH SCH ×2 (09:39→16:20)
[2022-07-23] MEDS: Liraglutide (rDNA Origin) 0.6 MG/0.1 ML 3 ML Pen SUBCUT SCH (09:40)
[2022-07-23] MEDS: Thiamine 100 MG in Sodium Chloride 0.9% 100 ML IV SCH (09:45)
[2022-07-23] MEDS ORDERED: LORazepam 0.5 MG Tab PO PRN (09:58)
[2022-07-23] MEDS ORDERED: Sodium Chloride 0.9% 1,000 ML IV SCH (10:00)
[2022-07-23] MEDS: Folic Acid 1 MG in Sodium Chloride 0.9% 50 ML IV SCH (10:44)
[2022-07-23] MEDS: Sodium Ferric Gluconate Cmplex 250 MG in Sodium Chloride 0.9% 100 ML IV SCH (12:06)
[2022-07-23] MEDS: hydrOXYzine HCl 25 MG Tab PO PRN (13:20)
[2022-07-23] MEDS: MVI, Adult with Vitamin K 10 ML in Sodium Chloride 0.9% 1,000 ML IV SCH ×2 (16:16)
[2022-07-23] MEDS: Insulin Lispro 100 Unit/ML 3 ML KwikPen SUBCUT SCH ×2 (17:31→21:11)
[2022-07-23] MEDS: traZODone 50 MG Tab PO SCH (21:10)
[2022-07-24] MEDS: Meropenem 1 GM in Sodium Chloride 0.9% 100 ML IV SCH ×3 (01:04→16:32)
[2022-07-24] MEDS: Acetaminophen/HYDROcodone 325-10 MG Tab PO PRN ×5 (02:56→20:28)
[2022-07-24] MEDS: Sucralfate Suspension 1 GM/10 ML Cup PO SCH ×4 (08:11→20:30)
[2022-07-24] MEDS: Levothyroxine 100 MCG Tab PO SCH (08:12)
[2022-07-24] MEDS: Dicyclomine 10 MG Cap PO SCH ×3 (08:12→20:28)
[2022-07-24] MEDS: Pantoprazole 40 MG Vial IVPUSH SCH ×2 (08:13→16:32)
[2022-07-24] MEDS: Trospium 20 MG Tab PO SCH ×2 (08:15→20:28)
[2022-07-24] MEDS: FLUoxetine 20 MG Cap PO SCH (08:15)
[2022-07-24] MEDS: Lisinopril 20 MG Tab PO SCH (08:15)
[2022-07-24] MEDS: Insulin Lispro 100 Unit/ML 3 ML KwikPen SUBCUT SCH ×4 (08:18→23:20)
[2022-07-24] MEDS: Thiamine 100 MG in Sodium Chloride 0.9% 100 ML IV SCH (09:46)
[2022-07-24] MEDS: Folic Acid 1 MG in Sodium Chloride 0.9% 50 ML IV SCH (10:21)
[2022-07-24] MEDS: Sodium Ferric Gluconate Cmplex 250 MG in Sodium Chloride 0.9% 100 ML IV SCH (10:58)
[2022-07-24] MEDS: MVI, Adult with Vitamin K 10 ML in Sodium Chloride 0.9% 1,000 ML IV SCH ×2 (14:58)
[2022-07-24] MEDS: hydrOXYzine HCl 25 MG Tab PO PRN (14:58)
[2022-07-24] MEDS: traZODone 50 MG Tab PO SCH (20:29)
[2022-07-25] MEDS: Acetaminophen/HYDROcodone 325-10 MG Tab PO PRN ×6 (00:48→22:38)
[2022-07-25] MEDS: Meropenem 1 GM in Sodium Chloride 0.9% 100 ML IV SCH ×3 (00:48→16:06)
[2022-07-25] MEDS: Sucralfate Suspension 1 GM/10 ML Cup PO SCH ×4 (07:51→19:55)
[2022-07-25] MEDS: Insulin Lispro 100 Unit/ML 3 ML KwikPen SUBCUT SCH ×4 (07:52→21:47)
[2022-07-25] MEDS: Pantoprazole 40 MG Vial IVPUSH SCH ×2 (07:55→16:09)
[2022-07-25] MEDS: Levothyroxine 100 MCG Tab PO SCH (07:58)
[2022-07-25] MEDS: Dicyclomine 10 MG Cap PO SCH ×3 (08:52→21:48)
[2022-07-25] MEDS: hydrOXYzine HCl 25 MG Tab PO PRN (08:52)
[2022-07-25] MEDS: Lisinopril 20 MG Tab PO SCH (08:52)
[2022-07-25] MEDS: FLUoxetine 20 MG Cap PO SCH (08:53)
[2022-07-25] MEDS: Trospium 20 MG Tab PO SCH ×2 (08:54→21:48)
[2022-07-25] MEDS: Thiamine 100 MG in Sodium Chloride 0.9% 100 ML IV SCH (09:44)
[2022-07-25] MEDS: Folic Acid 1 MG in Sodium Chloride 0.9% 50 ML IV SCH (10:39)
[2022-07-25] MEDS: Ondansetron 4 MG/2 ML SDV IV PRN (12:56)
[2022-07-25] MEDS: MVI, Adult with Vitamin K 10 ML in Sodium Chloride 0.9% 1,000 ML IV SCH ×2 (14:32)
[2022-07-25] MEDS: traZODone 50 MG Tab PO SCH (21:48)
[2022-07-26] MEDS: Meropenem 1 GM in Sodium Chloride 0.9% 100 ML IV SCH ×2 (01:10→09:42)
[2022-07-26] MEDS: Acetaminophen/HYDROcodone 325-10 MG Tab PO PRN ×4 (02:29→15:36)
[2022-07-26 05:33] LABS: ESTIMATED GFR 108 mL/min (>60)
[2022-07-26] MEDS: Levothyroxine 100 MCG Tab PO SCH (07:12)
[2022-07-26] MEDS: Sucralfate Suspension 1 GM/10 ML Cup PO SCH ×2 (07:13→11:24)
[2022-07-26] MEDS: Pantoprazole 40 MG Vial IVPUSH SCH (07:14)
[2022-07-26] MEDS: Insulin Lispro 100 Unit/ML 3 ML KwikPen SUBCUT SCH ×2 (08:32→11:25)
[2022-07-26] MEDS: Dicyclomine 10 MG Cap PO SCH ×2 (09:47→14:09)
[2022-07-26] MEDS: Lisinopril 20 MG Tab PO SCH (09:48)
[2022-07-26] MEDS: FLUoxetine 20 MG Cap PO SCH (09:48)
[2022-07-26] MEDS: Trospium 20 MG Tab PO SCH (09:48)
[2022-07-26] MEDS: Thiamine 100 MG in Sodium Chloride 0.9% 100 ML IV SCH (10:15)
[2022-07-26] MEDS: Folic Acid 1 MG in Sodium Chloride 0.9% 50 ML IV SCH (10:59)
[2022-07-26] MEDS ORDERED: Pantoprazole 40 MG Tab.CR PO SCH (16:30)
[2022-07-29 13:12] LABS: VITAMIN E(ALPHA TOCOPHEROL) 7.7 mg/L (7.0-25.1); VITAMIN E(GAMMA TOCOPHEROL) 1.1 mg/L (0.5-5.5)
== END 2022-07-26 15:45 | disposition home or self-care (01) | DRG 438 ==
LOC: JP.ED 13:39 → JP.MS 17:08
PROVIDERS: ADMIT Internal Medicine; ATTEND Internal Medicine
PROC: 0DB48ZX Excision of Esophagogastric Junction, Via Natural or Artificial Opening Endoscopic, Diagnostic (ICD-10-PCS; principal; 2022-07-22)
PROC: 0DB68ZX Excision of Stomach, Via Natural or Artificial Opening Endoscopic, Diagnostic (ICD-10-PCS; 2022-07-22)
DX: K85.90 Acute pancreatitis without necrosis or infection, unspecified (principal); K83.1 Obstruction of bile duct; K56.7 Ileus, unspecified; K86.2 Cyst of pancreas; E03.9 Hypothyroidism, unspecified; M81.0 Age-related osteoporosis without current pathological fracture; F32.A Depression, unspecified; E11.9 Type 2 diabetes mellitus without complications; Z20.822 Contact with and (suspected) exposure to COVID-19; K20.90 Esophagitis, unspecified without bleeding; K86.1 Other chronic pancreatitis; Z98.84 Bariatric surgery status; Z88.1 Allergy status to other antibiotic agents; Z88.5 Allergy status to narcotic agent; Z79.890 Hormone replacement therapy; Z79.4 Long term (current) use of insulin; Z79.899 Other long term (current) drug therapy; Z90.49 Acquired absence of other specified parts of digestive tract
CPT/HCPCS: 0241U; 36415; 74177; 74177-26; 74181; 74181-26; 80048; 80053; 81001; 82306; 82607; 82746; 82947; 83550; 83690; 83735; 84100; 84207; 84425; 84446; 84590; 85025; 85027; 86140; 88305; 96361; 96374; 96375; 99222; 99232; 99238; 99285; 99285-25; A9270-GY; C9113; J1815; J1885; J2060; J2185; J2250; J2405; J2704; J2916; J3010; J3411; J3480; J3490; J7030; J7120; Q0162; Q9967

== ENCOUNTER 2023-05-27 15:04 | Emergency (ER) | payer MEDICAID ==
[2023-05-27] MEDS ORDERED: Ondansetron 4 MG/2 ML SDV IVPUSH ONE (15:51)
[2023-05-27] MEDS ORDERED: HYDROmorphone 0.5 MG/0.5 ML Syringe IVPUSH ONE ×2 (15:51→18:05)
[2023-05-27] MEDS ORDERED: Sodium Chloride 0.9% 1,000 ML IV SCH (16:00)
[2023-05-27 16:04] LABS: BASE EXCESS VENOUS -1.8 mm/L; BICARBONATE,VENOUS 23.4 mmol/L; CARBOXYHEMOGLOBIN 1.8 % (0.0-1.6); O2 SATURATION VENOUS 53.7; OXYHEMOGLOBIN 51.7 %; PCO2 VENOUS 43.6 mm/Hg; PH,VENOUS 7.348 (7.350-7.450); TOTAL HEMOGLOBIN 14.1 g/dL (12.0-16.0)
[2023-05-27 16:15] LABS: BASOPHILS ABSOLUTE AUTO 0.02 K/uL (0.00-0.10); BASOPHILS PERCENT AUTO 0.2 % (0.1-1.3); EOSINOPHILS ABSOLUTE AUTO 0.08 K/uL (0.00-0.40); EOSINOPHILS PERCENT AUTO 0.9 % (0.0-5.4); HEMOGLOBIN 12.4 g/dL (11.2-15.5); IMMATURE GRAN ABSOLUTE AUTO 0.03 K/uL (0.00-0.23); IMMATURE GRAN PERCENT AUTO 0.3 % (0.0-0.7); LYMPHOCYTES ABSOLUTE AUTO 1.18 K/uL (0.8-3.3); LYMPHOCYTES PERCENT AUTO 13.4 % (11.4-47.7); MEAN CORPUSCULAR HGB CONC 32.6 g/dL (31.6-35.5); MONOCYTES ABSOLUTE AUTO 0.75 K/uL (0.20-0.90); MONOCYTES PERCENT AUTO 8.5 % (3.3-12.6); NEUTROPHILS ABSOLUTE AUTO 6.72 K/uL (1.0-7.6); NEUTROPHILS PERCENT AUTO 76.7 % (40.0-78.1); PLATELET COUNT,PLT 274 K/uL (130-375); WHITE BLOOD CELL COUNT,WBC 8.8 K/uL (3.2-11.0)
[2023-05-27 16:18] LABS: APPEARANCE,URINE SLIGHTLY CLOUDY (CLEAR); BILIRUBIN,URINE SMALL (NEGATIVE); COLOR,URINE YELLOW (YELLOW); GLUCOSE,URINE NEGATIVE (NEGATIVE); KETONES,URINE TRACE mg/dL (NEGATIVE); LEUKOCYTE ESTERASE,URINE NEGATIVE (NEGATIVE); NITRITE,URINE NEGATIVE (NEGATIVE); OCCULT BLOOD,URINE NEGATIVE (NEGATIVE); PROTEIN,URINE 100 mg/dL (NEGATIVE); UROBILINOGEN,URINE 0.2 EU/dL (0.2-1.0)
[2023-05-27] MEDS ORDERED: Sodium Chloride 0.9% 10 ML Syringe FLUSH PRN (16:25)
[2023-05-27] MEDS ORDERED: Iopamidol 612 MG/ML 500 ML Multipack Bottle IV ONE (16:25)
[2023-05-27 16:28] LABS: AMORPHOUS SEDIMENT,URINE NOT SEEN; BACTERIA,URINE MODERATE; EPITHELIAL CELLS,URINE FEW; MUCUS,URINE MODERATE
[2023-05-27 16:29] LABS: AMPHETAMINES SCREEN, URINE NEGATIVE (NEGATIVE); BARBITURATE SCREEN,URINE NEGATIVE (NEGATIVE); BENZODIAZEPINES SCREEN,URINE NEGATIVE (NEGATIVE); METHADONE SCREEN, URINE NEGATIVE (NEGATIVE); METHAMPHETAMINES SCREEN, URINE NEGATIVE (NEGATIVE); OXYCODONE SCREEN,URINE NEGATIVE (NEGATIVE); PROPOXYPHENE SCREEN,URINE NEGATIVE (NEGATIVE); THC SCREEN,URINE 50 NG/ML NEGATIVE (NEGATIVE)
[2023-05-27] MEDS ORDERED: Sodium Chloride 0.9% 100 ML IV SCH (16:30)
[2023-05-27 16:52] LABS: A/G RATIO 0.7 (1.2-2.2); ALANINE AMINOTRANSFERASE,ALT 31 U/L (12-78); ALBUMIN 3.1 g/dL (3.4-5.0); ALKALINE PHOSPHATASE 180 U/L (46-116); ASPARTATE AMNIOTRANSFERASE,AST 24 U/L (15-37); BILIRUBIN TOTAL 0.2 mg/dL (0.2-1.0); BLOOD UREA NITROGEN,BUN 17 mg/dL (7-18); CALCIUM 8.6 mg/dL (8.5-10.1); CARBON DIOXIDE,CO2 23 mmol/L (21-32); CHLORIDE,CL 103 mmol/L (100-108); CREATININE 0.7 mg/dL (0.6-1.0); EST CRCL DRUG DOSING (CG) 73.51 mL/min; ESTIMATED GFR 103 mL/min (>60); GLUCOSE RANDOM 192 mg/dL (74-106); MAGNESIUM 1.6 mg/dL (1.8-2.4); POTASSIUM,K 3.5 mmol/L (3.6-5.2); PROTEIN TOTAL,TP 7.6 g/dL (6.4-8.2); SODIUM,NA 140 mmol/L (140-148); TSH ULTRASENSITIVE 0.768 uIU/mL (0.358-3.740)
[2023-05-27 16:57] LABS: ANION GAP 17.5 mmol/L (5.0-14.0)
[2023-05-27 17:10] LABS: CORONAVIRUS COVID-19 NAA NEGATIVE (NEGATIVE); INFLUENZA A NAA NEGATIVE (NEGATIVE); INFLUENZA B NAA NEGATIVE (NEGATIVE); RESPIRATORY SYNCYTIAL VIR NAA NEGATIVE (NEGATIVE)
== END 2023-05-27 18:34 | disposition home or self-care (01) ==
LOC: JP.ED 15:04
DX: N30.00 Acute cystitis without hematuria (principal); I10 Essential (primary) hypertension; E78.00 Pure hypercholesterolemia, unspecified; K21.9 Gastro-esophageal reflux disease without esophagitis; E11.9 Type 2 diabetes mellitus without complications; E03.9 Hypothyroidism, unspecified; Z90.49 Acquired absence of other specified parts of digestive tract; Z79.899 Other long term (current) drug therapy; Z79.4 Long term (current) use of insulin; Z88.5 Allergy status to narcotic agent; Z88.1 Allergy status to other antibiotic agents; Z88.8 Allergy status to other drugs, medicaments and biological substances; Z91.048 Other nonmedicinal substance allergy status
CPT/HCPCS: 0241U; 36415; 71260; 74177; 80053; 80305; 81001; 82803; 83605; 83690; 83735; 84443; 85025; 87086; 87088; 87186; 96361; 96374; 96375; 96376; 99284; J1170; J2405; J3490; J7030; Q9967

== ENCOUNTER 2024-08-08 10:43 | Inpatient (IN) | payer MEDICAID ==
[2024-08-08] MEDS ORDERED: Acetaminophen 325 MG Tab PO PRN (11:42)
[2024-08-08] MEDS ORDERED: Sennosides/Docusate Sodium 50-8.6 MG Tab PO PRN (11:42)
[2024-08-08] MEDS ORDERED: Magnesium Hydroxide 400 MG/5 ML Susp 30 ML Cup PO PRN (11:42)
[2024-08-08] MEDS ORDERED: Ondansetron 4 MG Tab.DIS PO PRN (11:42)
[2024-08-08] MEDS ORDERED: Ondansetron 4 MG/2 ML SDV IV PRN (11:42)
[2024-08-08] MEDS ORDERED: LORazepam 2 MG/ML SDV IVPUSH PRN (11:42)
[2024-08-08] MEDS ORDERED: 50% Dextrose in Water 50 ML Syringe IVPUSH PRN (11:48)
[2024-08-08] MEDS ORDERED: Glucagon,Human Recombinant 1 MG Vial IM PRN (11:48)
[2024-08-08] MEDS ORDERED: Non-Formulary Medication 1 Each (Glucagon [Gvoke Hypopen 1-Pack] 1 MG/0.2 ML Auto.Injct) SQ PRN (11:48)
[2024-08-08] MEDS ORDERED: Non-Formulary Medication 1 Each (Estradiol [Estrace 0.01% Vaginal Crm] 42.5 GM Tube) VAG PRN (11:48)
[2024-08-08] MEDS ORDERED: Insulin Lispro 100 Unit/ML 3 ML KwikPen SUBCUT SCH (12:00)
[2024-08-08] MEDS: VANCOmycin 1.5 GM in Sodium Chloride 0.9% 250 ML IV ONE (13:02)
[2024-08-08] MEDS: Acetaminophen/HYDROcodone 108-2.5 MG/5 ML Soln 15 ML UD Cup PO SCH (13:25)
[2024-08-08] MEDS: Insulin Glargine,Human Rec. Analog 100 Units/ML 3 ML Pen SUBCUT SCH (13:47)
[2024-08-08] MEDS: Insulin Lispro 100 Unit/ML 3 ML KwikPen SUBCUT SCH ×2 (13:48)
[2024-08-08] MEDS ORDERED: Acetaminophen/HYDROcodone 108-2.5 MG/5 ML Soln 15 ML UD Cup PO SCH (16:00)
[2024-08-08] MEDS: Iopamidol 612 MG/ML 100 ML Bottle IV ONE (16:18)
[2024-08-08] MEDS: Sodium Chloride 0.9% 100 ML IV ONE (16:18)
[2024-08-08] MEDS: Pantoprazole 40 MG Tab.CR PO SCH (17:07)
[2024-08-08] MEDS: Sodium Chloride 0.9% 10 ML Syringe FLUSH ONE (17:17)
[2024-08-08] MEDS: traZODone 50 MG Tab PO SCH (21:14)
[2024-08-08] MEDS: atorvaSTATin 20 MG Tab PO SCH (21:14)
[2024-08-08] MEDS: Amitriptyline 25 MG Tab PO SCH (21:14)
[2024-08-08] MEDS: Sodium Chloride 0.9% 1,000 ML IV ONE (23:31)
[2024-08-09] MEDS: VANCOmycin 1 GM in Sodium Chloride 0.9% 250 ML IV SCH (00:35)
[2024-08-09 06:04] LABS: BASOPHILS ABSOLUTE AUTO 0.06 K/uL (0.00-0.10); BASOPHILS PERCENT AUTO 0.6 % (0.1-1.3); EOSINOPHILS PERCENT AUTO 0.9 % (0.0-5.4); HEMATOCRIT 27.2 % (34.3-46.0); HEMOGLOBIN 8.7 g/dL (11.2-15.5); IMMATURE GRAN ABSOLUTE AUTO 0.13 K/uL (0.00-0.23); IMMATURE GRAN PERCENT AUTO 1.2 % (0.0-0.7); LYMPHOCYTES PERCENT AUTO 30.1 % (11.4-47.7); MEAN CORPUSCULAR HEMOGLOBIN 35.2 pg (31.6-35.5); MONOCYTES ABSOLUTE AUTO 1.34 K/uL (0.20-0.90); MONOCYTES PERCENT AUTO 12.6 % (3.3-12.6); NEUTROPHILS PERCENT AUTO 54.6 % (40.0-78.1); PLATELET COUNT,PLT 271 K/uL (130-375); RED BLOOD CELL COUNT 2.47 M/uL (3.77-5.24); WHITE BLOOD CELL COUNT,WBC 10.6 K/uL (3.2-11.0)
[2024-08-09 06:24] LABS: HEMOGLOBIN A1C 9.1 % (4.5-6.2)
[2024-08-09 06:27] LABS: MEAN CORPUSCULAR VOLUME 110.1 fL (81.4-99.0)
[2024-08-09 06:29] LABS: A/G RATIO 0.3 (1.2-2.2); ALANINE AMINOTRANSFERASE,ALT 28 U/L (12-78); ALBUMIN 1.3 g/dL (3.4-5.0); ALKALINE PHOSPHATASE 238 U/L (46-116); ANION GAP 11.2 mmol/L (5.0-14.0); ASPARTATE AMNIOTRANSFERASE,AST 21 U/L (15-37); BILIRUBIN TOTAL 0.6 mg/dL (0.2-1.0); BLOOD UREA NITROGEN,BUN 6 mg/dL (7-18); C-REACTIVE PROTEIN 4.81 mg/dL (<0.50); CARBON DIOXIDE,CO2 26 mmol/L (21-32); CHLORIDE,CL 104 mmol/L (100-108); EST CRCL DRUG DOSING (CG) 50.86 mL/min; ESTIMATED GFR 67 mL/min (>60); GLUCOSE RANDOM 87 mg/dL (74-106); POTASSIUM,K 4.7 mmol/L (3.6-5.2); PROTEIN TOTAL,TP 5.3 g/dL (6.4-8.2); SODIUM,NA 141 mmol/L (140-148)
[2024-08-09] MEDS: FLUoxetine 20 MG Cap PO SCH (08:30)
[2024-08-09] MEDS: Lisinopril 20 MG Tab PO SCH (08:35)
[2024-08-09] MEDS: Furosemide 20 MG/2 ML VIAL IVPUSH SCH (11:46)
[2024-08-09] MEDS: VANCOmycin 0.75 GM in Sodium Chloride 0.9% 250 ML IV SCH (13:07)
[2024-08-10 06:05] LABS: BASOPHILS ABSOLUTE AUTO 0.06 K/uL (0.00-0.10); BASOPHILS PERCENT AUTO 0.7 % (0.1-1.3); EOSINOPHILS PERCENT AUTO 1.2 % (0.0-5.4); HEMATOCRIT 25.9 % (34.3-46.0); HEMOGLOBIN 8.3 g/dL (11.2-15.5); IMMATURE GRAN ABSOLUTE AUTO 0.14 K/uL (0.00-0.23); IMMATURE GRAN PERCENT AUTO 1.7 % (0.0-0.7); LYMPHOCYTES ABSOLUTE AUTO 3.02 K/uL (0.8-3.3); LYMPHOCYTES PERCENT AUTO 36.9 % (11.4-47.7); MEAN CORPUSCULAR HEMOGLOBIN 35.5 pg (31.6-35.5); MEAN CORPUSCULAR VOLUME 110.7 fL (81.4-99.0); MONOCYTES ABSOLUTE AUTO 0.95 K/uL (0.20-0.90); MONOCYTES PERCENT AUTO 11.6 % (3.3-12.6); NEUTROPHILS ABSOLUTE AUTO 3.92 K/uL (1.0-7.6); NEUTROPHILS PERCENT AUTO 47.9 % (40.0-78.1); PLATELET COUNT,PLT 273 K/uL (130-375); RED BLOOD CELL COUNT 2.34 M/uL (3.77-5.24); WHITE BLOOD CELL COUNT,WBC 8.2 K/uL (3.2-11.0)
[2024-08-10] MEDS: Sulfamethoxazole/Trimethoprim 800-160 MG Tab PO SCH (20:45)
[2024-08-11 05:51] LABS: BASOPHILS ABSOLUTE AUTO 0.07 K/uL (0.00-0.10); BASOPHILS PERCENT AUTO 0.8 % (0.1-1.3); EOSINOPHILS ABSOLUTE AUTO 0.11 K/uL (0.00-0.40); EOSINOPHILS PERCENT AUTO 1.3 % (0.0-5.4); HEMOGLOBIN 8.7 g/dL (11.2-15.5); IMMATURE GRAN ABSOLUTE AUTO 0.24 K/uL (0.00-0.23); IMMATURE GRAN PERCENT AUTO 2.8 % (0.0-0.7); LYMPHOCYTES ABSOLUTE AUTO 2.89 K/uL (0.8-3.3); LYMPHOCYTES PERCENT AUTO 33.7 % (11.4-47.7); MEAN CORPUSCULAR HGB CONC 32.2 g/dL (31.6-35.5); MEAN CORPUSCULAR VOLUME 111.6 fL (81.4-99.0); MONOCYTES ABSOLUTE AUTO 0.94 K/uL (0.20-0.90); NEUTROPHILS ABSOLUTE AUTO 4.33 K/uL (1.0-7.6); NEUTROPHILS PERCENT AUTO 50.4 % (40.0-78.1); PLATELET COUNT,PLT 279 K/uL (130-375); RED BLOOD CELL COUNT 2.42 M/uL (3.77-5.24); WHITE BLOOD CELL COUNT,WBC 8.6 K/uL (3.2-11.0)
== END 2024-08-11 11:48 | disposition home or self-care (01) | DRG 603 ==
LOC: JP.MS 10:43 → INTOOBSV 10:43 → JP.MS 13:47 → OBSVTOIN 08-10 13:47
PROVIDERS: ADMIT Hospitalist; ATTEND Hospitalist
DX: L03.114 Cellulitis of left upper limb (principal); F32.A Depression, unspecified; I10 Essential (primary) hypertension; K21.9 Gastro-esophageal reflux disease without esophagitis; M81.0 Age-related osteoporosis without current pathological fracture; E78.00 Pure hypercholesterolemia, unspecified; G43.909 Migraine, unspecified, not intractable, without status migrainosus; E11.9 Type 2 diabetes mellitus without complications; L03.112 Cellulitis of left axilla; B96.89 Other specified bacterial agents as the cause of diseases classified elsewhere; E03.9 Hypothyroidism, unspecified; Z90.89 Acquired absence of other organs; Z90.49 Acquired absence of other specified parts of digestive tract; Z98.84 Bariatric surgery status; Z88.6 Allergy status to analgesic agent; Z88.1 Allergy status to other antibiotic agents; Z88.5 Allergy status to narcotic agent; Z91.048 Other nonmedicinal substance allergy status; Z79.02 Long term (current) use of antithrombotics/antiplatelets; Z79.4 Long term (current) use of insulin; Z79.899 Other long term (current) drug therapy; Z79.891 Long term (current) use of opiate analgesic; Z87.440 Personal history of urinary (tract) infections; Z98.890 Other specified postprocedural states; Z98.51 Tubal ligation status
CPT/HCPCS: 36415; 71260; 71260-26; 80053; 80202; 82947; 83036; 85025; 86140; 87040; 87070; 87077; 87186; 87205; 96365; 96366; 96375; 96376; 99222; 99231; 99239; A9270-GY; G0378; G0379; J1815; J1815-GY; J1940; J7030; J7050; Q9967

== ENCOUNTER 2024-09-27 08:38 | Inpatient (IN) | payer MEDICAID ==
[2024-09-27 09:37] LABS: BASE EXCESS ARTERIAL -2.3 mm/L; BICARBONATE,ARTERIAL 19.3 mmol/L (22.0-26.0); CARBOXYHEMOGLOBIN 1.4 % (0.0-1.6); METHEMOGLOBIN 1.2 %; O2 SATURATION ARTERIAL 97.3 % (95.0-98.0); OXYHEMOGLOBIN 94.8 %; PCO2 ARTERIAL 23.3 mmHg (35.0-42.0); TOTAL HEMOGLOBIN 8.7 g/dL (12.0-16.0)
[2024-09-27 09:40] LABS: BASOPHILS PERCENT AUTO 0.1 % (0.1-1.3); EOSINOPHILS PERCENT AUTO 0.1 % (0.0-5.4); HEMATOCRIT 25.4 % (34.3-46.0); HEMOGLOBIN 8.1 g/dL (11.2-15.5); IMMATURE GRAN ABSOLUTE AUTO 0.09 K/uL (0.00-0.23); IMMATURE GRAN PERCENT AUTO 0.7 % (0.0-0.7); LYMPHOCYTES ABSOLUTE AUTO 1.49 K/uL (0.8-3.3); MEAN CORPUSCULAR HEMOGLOBIN 41.5 pg (31.6-35.5); MEAN CORPUSCULAR HGB CONC 31.9 g/dL (31.6-35.5); MEAN CORPUSCULAR VOLUME 130.3 fL (81.4-99.0); MONOCYTES ABSOLUTE AUTO 0.92 K/uL (0.20-0.90); MONOCYTES PERCENT AUTO 6.8 % (3.3-12.6); NEUTROPHILS ABSOLUTE AUTO 11.05 K/uL (1.0-7.6); NEUTROPHILS PERCENT AUTO 81.3 % (40.0-78.1); PLATELET COUNT,PLT 145 K/uL (130-375); WHITE BLOOD CELL COUNT,WBC 13.6 K/uL (3.2-11.0)
[2024-09-27 09:56] LABS: BASOPHILS ABSOLUTE AUTO 0.01 K/uL (0.00-0.10); EOSINOPHILS ABSOLUTE AUTO 0.02 K/uL (0.00-0.40); RED BLOOD CELL COUNT 1.95 M/uL (3.77-5.24)
[2024-09-27 10:04] LABS: LACTIC ACID 2.3 mmol/L (0.4-2.0)
[2024-09-27 10:10] LABS: A/G RATIO 0.3 (1.2-2.2); ALANINE AMINOTRANSFERASE,ALT 20 U/L (12-78); ALBUMIN 1.1 g/dL (3.4-5.0); ALKALINE PHOSPHATASE 345 U/L (46-116); ASPARTATE AMNIOTRANSFERASE,AST 30 U/L (15-37); BILIRUBIN TOTAL 1.3 mg/dL (0.2-1.0); BLOOD UREA NITROGEN,BUN 7 mg/dL (7-18); C-REACTIVE PROTEIN 9.86 mg/dL (<0.50); CALCIUM 7.7 mg/dL (8.5-10.1); CARBON DIOXIDE,CO2 18 mmol/L (21-32); CHLORIDE,CL 103 mmol/L (100-108); CREATININE 1.3 mg/dL (0.6-1.0); EST CRCL DRUG DOSING (CG) 39.13 mL/min; ESTIMATED GFR 49 mL/min (>60); GLUCOSE RANDOM 294 mg/dL (74-106); POTASSIUM,K 5.6 mmol/L (3.6-5.2); PROTEIN TOTAL,TP 5.4 g/dL (6.4-8.2); SODIUM,NA 139 mmol/L (140-148)
[2024-09-27 10:12] LABS: ANION GAP 23.6 mmol/L (5.0-14.0)
[2024-09-27 10:13] LABS: LIPASE < 6.0 U/L (16.0-77.0)
[2024-09-27] MEDS: Sodium Chloride 0.9% 10 ML Syringe FLUSH PRN (10:15)
[2024-09-27] MEDS: Sodium Chloride 0.9% 80 ML IV SCH (10:16)
[2024-09-27] MEDS: Iopamidol 612 MG/ML 100 ML Bottle IV PRN (10:16)
[2024-09-27] MEDS: Sodium Chloride 0.9% 1,000 ML IV SCH ×2 (10:20→17:54)
[2024-09-27] MEDS: Naloxone 0.4 MG/ML SDV IVPUSH PRN (10:21)
[2024-09-27] MEDS: Piperacillin/Tazobactam 4.5 GM in Sodium Chloride 0.9% 100 ML IV ONE (12:16)
[2024-09-27 12:19] LABS: AMPHETAMINES SCREEN, URINE NEGATIVE (NEGATIVE); BARBITURATE SCREEN,URINE NEGATIVE (NEGATIVE); BENZODIAZEPINES SCREEN,URINE NEGATIVE (NEGATIVE); METHADONE SCREEN, URINE NEGATIVE (NEGATIVE); METHAMPHETAMINES SCREEN, URINE NEGATIVE (NEGATIVE); OXYCODONE SCREEN,URINE NEGATIVE (NEGATIVE); PROPOXYPHENE SCREEN,URINE NEGATIVE (NEGATIVE); THC SCREEN,URINE 50 NG/ML NEGATIVE (NEGATIVE)
[2024-09-27] MEDS ORDERED: Sodium Chloride 0.9% 1,000 ML IV SCH (13:00)
[2024-09-27] MEDS ORDERED: Albuterol 0.083% 2.5 MG/3 ML Neb Soln NEB PRN (15:19)
[2024-09-27] MEDS ORDERED: Acetaminophen 325 MG Tab PO PRN (15:19)
[2024-09-27] MEDS ORDERED: Ondansetron 4 MG Tab.DIS PO PRN (15:19)
[2024-09-27] MEDS: Piperacillin/Tazobactam 4.5 GM in Sodium Chloride 0.9% 100 ML IV SCH (16:04)
[2024-09-27] MEDS: Insulin Lispro 100 Unit/ML 3 ML KwikPen SUBCUT SCH (17:13)
[2024-09-27] MEDS: Albumin Human 25 GM in Premix Bag 1 BAG IV ONE (20:21)
[2024-09-27] MEDS: Melatonin 3 MG Tab PO SCH (21:01)
[2024-09-27] MEDS: Lactobacillus Rhamnosus GG (Probiotic) Cap PO SCH (21:01)
[2024-09-28 06:01] LABS: HEMATOCRIT 24.6 % (34.3-46.0); HEMOGLOBIN 7.5 g/dL (11.2-15.5); MEAN CORPUSCULAR HEMOGLOBIN 41.7 pg (31.6-35.5); MEAN CORPUSCULAR HGB CONC 30.5 g/dL (31.6-35.5); MEAN CORPUSCULAR VOLUME 136.7 fL (81.4-99.0); WHITE BLOOD CELL COUNT,WBC 8.7 K/uL (3.2-11.0)
[2024-09-28 06:19] LABS: RED BLOOD CELL COUNT 1.8 M/uL (3.77-5.24)
[2024-09-28 06:51] LABS: HEMOGLOBIN A1C 6.3 % (4.5-6.2)
[2024-09-28 06:53] LABS: A/G RATIO 0.4 (1.2-2.2); ALANINE AMINOTRANSFERASE,ALT 20 U/L (12-78); ALBUMIN 1.5 g/dL (3.4-5.0); ALKALINE PHOSPHATASE 325 U/L (46-116); ANION GAP 15.5 mmol/L (5.0-14.0); ASPARTATE AMNIOTRANSFERASE,AST 33 U/L (15-37); BILIRUBIN TOTAL 1.6 mg/dL (0.2-1.0); BLOOD UREA NITROGEN,BUN 4 mg/dL (7-18); CALCIUM 7.8 mg/dL (8.5-10.1); CARBON DIOXIDE,CO2 23 mmol/L (21-32); CHLORIDE,CL 108 mmol/L (100-108); CREATININE 0.8 mg/dL (0.6-1.0); EST CRCL DRUG DOSING (CG) 63.58 mL/min; ESTIMATED GFR 88 mL/min (>60); GLUCOSE RANDOM 125 mg/dL (74-106); MAGNESIUM 1.4 mg/dL (1.8-2.4); PHOSPHORUS 2.5 mg/dL (2.5-4.9); POTASSIUM,K 4.2 mmol/L (3.6-5.2); PROTEIN TOTAL,TP 5.4 g/dL (6.4-8.2); SODIUM,NA 146 mmol/L (140-148)
[2024-09-28] MEDS: Ondansetron 4 MG/2 ML SDV IV PRN (07:03)
[2024-09-28] MEDS: Levothyroxine 100 MCG, Levothyroxine 50 MCG, Levothyroxine 25 MCG PO SCH (07:25)
[2024-09-28] MEDS ORDERED: LEVOTHYROXINE SODIUM 175 MCG PO SCH (07:30)
[2024-09-28] MEDS ORDERED: ACETAMINOPHEN PO SCH (10:00)
[2024-09-28] MEDS ORDERED: [UNRECOGNIZED DRUG - OTHER] PO SCH (10:00)
[2024-09-28] MEDS ORDERED: HYDROCODONE PO SCH (10:00)
[2024-09-28] MEDS ORDERED: Sodium Chloride 0.9% 10 ML Syringe IV PRN (10:15)
[2024-09-28] MEDS: Scopalamine 1mg/3day Transdermal Patch TRDERM SCH (11:12)
[2024-09-28] MEDS: FLUoxetine 20 MG Cap PO SCH (11:13)
[2024-09-28] MEDS: Acetaminophen/HYDROcodone 108-2.5 MG/5 ML Soln 15 ML UD Cup PO SCH (11:14)
[2024-09-28] MEDS: Pantoprazole 40 MG Tab.CR PO SCH (11:15)
[2024-09-28] MEDS: Albumin Human 25 GM in Premix Bag 1 BAG IV ONE (12:02)
[2024-09-28] MEDS: Magnesium Sulfate 2 GM/50 mL 2 GM in Premix Bag 1 BAG IV ONE (16:23)
[2024-09-28] MEDS: Tamsulosin 0.4 MG Cap.ER PO ONE (17:12)
[2024-09-29 05:47] LABS: HEMATOCRIT 23.5 % (34.3-46.0); MEAN CORPUSCULAR HEMOGLOBIN 40.8 pg (31.6-35.5); MEAN CORPUSCULAR HGB CONC 29.4 g/dL (31.6-35.5); MEAN CORPUSCULAR VOLUME 139.1 fL (81.4-99.0); RED BLOOD CELL COUNT 1.69 M/uL (3.77-5.24); WHITE BLOOD CELL COUNT,WBC 6.7 K/uL (3.2-11.0)
[2024-09-29 05:55] LABS: HEMOGLOBIN 6.9 g/dL (11.2-15.5)
[2024-09-29 06:08] LABS: A/G RATIO 0.5 (1.2-2.2); ALANINE AMINOTRANSFERASE,ALT 18 U/L (12-78); ALBUMIN 1.8 g/dL (3.4-5.0); ALKALINE PHOSPHATASE 288 U/L (46-116); ANION GAP 12.6 mmol/L (5.0-14.0); ASPARTATE AMNIOTRANSFERASE,AST 46 U/L (15-37); BILIRUBIN TOTAL 1.6 mg/dL (0.2-1.0); BLOOD UREA NITROGEN,BUN 3 mg/dL (7-18); CALCIUM 7.9 mg/dL (8.5-10.1); CARBON DIOXIDE,CO2 25 mmol/L (21-32); CHLORIDE,CL 107 mmol/L (100-108); CREATININE 0.8 mg/dL (0.6-1.0); EST CRCL DRUG DOSING (CG) 63.03 mL/min; ESTIMATED GFR 88 mL/min (>60); GLUCOSE RANDOM 116 mg/dL (74-106); POTASSIUM,K 3.9 mmol/L (3.6-5.2); PROTEIN TOTAL,TP 5.5 g/dL (6.4-8.2); SODIUM,NA 145 mmol/L (140-148)
[2024-09-29] MEDS ORDERED: Propofol 200 MG/20 ML SDV ONE (09:04)
[2024-09-29] MEDS ORDERED: Midazolam 1 MG/ML 2 ML SDV ONE (09:05)
[2024-09-29] MEDS ORDERED: fentaNYL 100 MCG/2 ML SDV ONE (09:05)
[2024-09-29] MEDS: Tamsulosin 0.4 MG Cap.ER PO SCH (10:17)
[2024-09-29] MEDS: VERIFY SCOP PATCH TOP SCH (10:18)
[2024-09-29] MEDS: MVI IV SCH (14:09)
[2024-09-29] MEDS: LYTES IV SCH (14:09)
[2024-09-29] MEDS: VITAMIN K IV SCH (14:09)
[2024-09-29] MEDS: [UNRECOGNIZED DRUG - OTHER] IV SCH (14:09)
[2024-09-29] MEDS: CALCIUM IV SCH (14:09)
[2024-09-29] MEDS: Fat Emulsion 100 ML IV ONE (16:01)
[2024-09-29] MEDS: Nystatin Susp 100,000 Unit/ML 5 ML UD Cup PO SCH (16:12)
[2024-09-29] MEDS: Piperacillin/Tazobactam 4.5 GM in Sodium Chloride 0.9% 100 ML IV SCH (17:53)
[2024-09-30 05:55] LABS: HEMATOCRIT 26.4 % (34.3-46.0); HEMOGLOBIN 8.1 g/dL (11.2-15.5); MEAN CORPUSCULAR HEMOGLOBIN 38.2 pg (31.6-35.5); MEAN CORPUSCULAR HGB CONC 30.7 g/dL (31.6-35.5); MEAN CORPUSCULAR VOLUME 124.5 fL (81.4-99.0); RED BLOOD CELL COUNT 2.12 M/uL (3.77-5.24); WHITE BLOOD CELL COUNT,WBC 5.9 K/uL (3.2-11.0)
[2024-09-30 06:14] LABS: A/G RATIO 0.4 (1.2-2.2); ALANINE AMINOTRANSFERASE,ALT 18 U/L (12-78); ALBUMIN 1.4 g/dL (3.4-5.0); ALKALINE PHOSPHATASE 248 U/L (46-116); ASPARTATE AMNIOTRANSFERASE,AST 33 U/L (15-37); BLOOD UREA NITROGEN,BUN 3 mg/dL (7-18); CALCIUM 7.6 mg/dL (8.5-10.1); CARBON DIOXIDE,CO2 24 mmol/L (21-32); CHLORIDE,CL 105 mmol/L (100-108); CREATININE 0.7 mg/dL (0.6-1.0); EST CRCL DRUG DOSING (CG) 72.03 mL/min; ESTIMATED GFR 103 mL/min (>60); GLUCOSE RANDOM 238 mg/dL (74-106); MAGNESIUM 1.5 mg/dL (1.8-2.4); POTASSIUM,K 4.4 mmol/L (3.6-5.2); PROTEIN TOTAL,TP 5.1 g/dL (6.4-8.2); SODIUM,NA 140 mmol/L (140-148)
[2024-09-30] MEDS: Magnesium Sulfate 2 GM/50 mL 2 GM in Premix Bag 1 BAG IV SCH (09:43)
[2024-09-30] MEDS: LYTES IV SCH (12:26)
[2024-09-30] MEDS: CALCIUM IV SCH (12:26)
[2024-09-30] MEDS: MVI IV SCH (12:26)
[2024-09-30] MEDS: [UNRECOGNIZED DRUG - OTHER] IV SCH (12:26)
[2024-09-30] MEDS: VITAMIN K IV SCH (12:26)
[2024-09-30] MEDS ORDERED: VITAMIN K IV SCH (14:00)
[2024-09-30] MEDS ORDERED: MVI IV SCH (14:00)
[2024-09-30] MEDS ORDERED: [UNRECOGNIZED DRUG - OTHER] IV SCH (14:00)
[2024-09-30] MEDS ORDERED: CALCIUM IV SCH (14:00)
[2024-09-30] MEDS ORDERED: LYTES IV SCH (14:00)
[2024-09-30] MEDS: Albumin Human 25 GM in Premix Bag 1 BAG IV ONE (15:07)
[2024-09-30] MEDS: Trospium 20 MG Tab PO SCH (15:09)
[2024-09-30] MEDS: Fat Emulsion 100 ML IV ONE (15:09)
[2024-10-01 05:50] LABS: HEMATOCRIT 27.9 % (34.3-46.0); HEMOGLOBIN 8.8 g/dL (11.2-15.5); MEAN CORPUSCULAR HEMOGLOBIN 38.3 pg (31.6-35.5); MEAN CORPUSCULAR HGB CONC 31.5 g/dL (31.6-35.5); MEAN CORPUSCULAR VOLUME 121.3 fL (81.4-99.0); RED BLOOD CELL COUNT 2.3 M/uL (3.77-5.24); WHITE BLOOD CELL COUNT,WBC 6.9 K/uL (3.2-11.0)
[2024-10-01 06:14] LABS: A/G RATIO 0.5 (1.2-2.2); ALANINE AMINOTRANSFERASE,ALT 20 U/L (12-78); ALBUMIN 2.1 g/dL (3.4-5.0); ALKALINE PHOSPHATASE 243 U/L (46-116); ASPARTATE AMNIOTRANSFERASE,AST 37 U/L (15-37); BILIRUBIN TOTAL 1.9 mg/dL (0.2-1.0); BLOOD UREA NITROGEN,BUN 2 mg/dL (7-18); CALCIUM 8.1 mg/dL (8.5-10.1); CARBON DIOXIDE,CO2 27 mmol/L (21-32); CHLORIDE,CL 96 mmol/L (100-108); CREATININE 0.7 mg/dL (0.6-1.0); EST CRCL DRUG DOSING (CG) 72.03 mL/min; ESTIMATED GFR 103 mL/min (>60); GLUCOSE RANDOM 347 mg/dL (74-106); PHOSPHORUS 1.6 mg/dL (2.5-4.9); POTASSIUM,K 4.5 mmol/L (3.6-5.2); PROTEIN TOTAL,TP 6.1 g/dL (6.4-8.2); SODIUM,NA 134 mmol/L (140-148)
[2024-10-01 06:16] LABS: ANION GAP 15.5 mmol/L (5.0-14.0)
[2024-10-01] MEDS ORDERED: fentaNYL 100 MCG/2 ML SDV ONE (07:28)
[2024-10-01] MEDS ORDERED: Propofol 200 MG/20 ML SDV ONE ×2 (07:28→12:23)
[2024-10-01] MEDS ORDERED: Midazolam 1 MG/ML 2 ML SDV ONE (07:28)
[2024-10-01] MEDS ORDERED: Lidocaine 1% 4 ML ONE (10:43)
[2024-10-01] MEDS: Bupivacaine 0.5% 50 ML MDV ONE (13:23)
[2024-10-01] MEDS: Lidocaine 1% with EPINEPHrine 1:100,000 50 ML MDV ONE (13:23)
[2024-10-01] MEDS: Amoxicillin/Clavulanate K 875-125 MG Tab PO SCH (13:32)
[2024-10-01] MEDS: Albumin Human 100 ML IV ONE (13:34)
[2024-10-01] MEDS: Insulin Glargine,Human Rec. Analog 100 Units/ML 3 ML Pen SUBCUT SCH (14:17)
[2024-10-01] MEDS: Sodium Phosphate 30 MMOLE in Sodium Chloride 0.9% 250 ML IV ONE (17:57)
[2024-10-02 05:55] LABS: HEMATOCRIT 24.2 % (34.3-46.0); HEMOGLOBIN 7.6 g/dL (11.2-15.5); MEAN CORPUSCULAR HGB CONC 31.4 g/dL (31.6-35.5); MEAN CORPUSCULAR VOLUME 124.1 fL (81.4-99.0); RED BLOOD CELL COUNT 1.95 M/uL (3.77-5.24); WHITE BLOOD CELL COUNT,WBC 5.2 K/uL (3.2-11.0)
[2024-10-02 06:15] LABS: A/G RATIO 0.6 (1.2-2.2); ALANINE AMINOTRANSFERASE,ALT 12 U/L (12-78); ALKALINE PHOSPHATASE 199 U/L (46-116); ASPARTATE AMNIOTRANSFERASE,AST 48 U/L (15-37); BILIRUBIN TOTAL 1.4 mg/dL (0.2-1.0); BLOOD UREA NITROGEN,BUN 2 mg/dL (7-18); CARBON DIOXIDE,CO2 29 mmol/L (21-32); CHLORIDE,CL 101 mmol/L (100-108); CREATININE 0.4 mg/dL (0.6-1.0); EST CRCL DRUG DOSING (CG) 127.16 mL/min; ESTIMATED GFR 118 mL/min (>60); GLUCOSE RANDOM 102 mg/dL (74-106); MAGNESIUM 1.6 mg/dL (1.8-2.4); PHOSPHORUS 2.6 mg/dL (2.5-4.9); POTASSIUM,K 3.6 mmol/L (3.6-5.2); PROTEIN TOTAL,TP 5.5 g/dL (6.4-8.2); SODIUM,NA 139 mmol/L (140-148)
[2024-10-02 06:29] LABS: ANION GAP 12.6 mmol/L (5.0-14.0)
[2024-10-02] MEDS: 1: AA 5%/Calcium/D15W/Lytes 1,000 ML with MVI, Adult with Vitamin K 10 ML, Zinc/Copper/M IV SCH (11:28)
[2024-10-02] MEDS: Fat Emulsion 100 ML IV ONE (16:27)
[2024-10-03 05:52] LABS: HEMATOCRIT 27.2 % (34.3-46.0); HEMOGLOBIN 8.3 g/dL (11.2-15.5); MEAN CORPUSCULAR HEMOGLOBIN 38.4 pg (31.6-35.5); MEAN CORPUSCULAR HGB CONC 30.5 g/dL (31.6-35.5); MEAN CORPUSCULAR VOLUME 125.9 fL (81.4-99.0); RED BLOOD CELL COUNT 2.16 M/uL (3.77-5.24); WHITE BLOOD CELL COUNT,WBC 6.1 K/uL (3.2-11.0)
[2024-10-03 06:22] LABS: A/G RATIO 0.6 (1.2-2.2); ALANINE AMINOTRANSFERASE,ALT 13 U/L (12-78); ALBUMIN 2.1 g/dL (3.4-5.0); ALKALINE PHOSPHATASE 195 U/L (46-116); ASPARTATE AMNIOTRANSFERASE,AST 33 U/L (15-37); BILIRUBIN TOTAL 1.2 mg/dL (0.2-1.0); BLOOD UREA NITROGEN,BUN 3 mg/dL (7-18); CALCIUM 8.6 mg/dL (8.5-10.1); CARBON DIOXIDE,CO2 30 mmol/L (21-32); CHLORIDE,CL 98 mmol/L (100-108); CREATININE 0.6 mg/dL (0.6-1.0); EST CRCL DRUG DOSING (CG) 84.78 mL/min; ESTIMATED GFR 107 mL/min (>60); GLUCOSE RANDOM 282 mg/dL (74-106); MAGNESIUM 1.7 mg/dL (1.8-2.4); PHOSPHORUS 1.7 mg/dL (2.5-4.9); POTASSIUM,K 4.6 mmol/L (3.6-5.2); PROTEIN TOTAL,TP 5.9 g/dL (6.4-8.2); SODIUM,NA 134 mmol/L (140-148)
[2024-10-03 06:25] LABS: ANION GAP 10.6 mmol/L (5.0-14.0)
== END 2024-10-03 11:25 | disposition home or self-care (01) | DRG 871 ==
LOC: JP.ED 08:38 → UNDOADMIN 13:31 → JP.ICU 13:31
PROVIDERS: ADMIT Internal Medicine; ATTEND Internal Medicine
PROC: 30233N1 Transfusion of Nonautologous Red Blood Cells into Peripheral Vein, Percutaneous Approach (ICD-10-PCS; principal; 2024-09-28)
PROC: 3E03329 Introduction of Other Anti-infective into Peripheral Vein, Percutaneous Approach (ICD-10-PCS; principal; 2024-09-28)
PROC: 4A033R1 Measurement of Arterial Saturation, Peripheral, Percutaneous Approach (ICD-10-PCS; principal; 2024-09-28)
PROC: 0JHF3WZ Insertion of Totally Implantable Vascular Access Device into Left Upper Arm Subcutaneous Tissue and Fascia, Percutaneous Approach (ICD-10-PCS; principal; 2024-09-28)
DX: A41.9 Sepsis, unspecified organism (principal); E43 Unspecified severe protein-calorie malnutrition; G93.41 Metabolic encephalopathy; K86.1 Other chronic pancreatitis; K83.09 Other cholangitis; K76.82 Hepatic encephalopathy; R65.20 Severe sepsis without septic shock; E87.5 Hyperkalemia; E78.00 Pure hypercholesterolemia, unspecified; I10 Essential (primary) hypertension; K21.9 Gastro-esophageal reflux disease without esophagitis; K27.7 Chronic peptic ulcer, site unspecified, without hemorrhage or perforation; M79.7 Fibromyalgia; M81.0 Age-related osteoporosis without current pathological fracture; G43.909 Migraine, unspecified, not intractable, without status migrainosus; E66.9 Obesity, unspecified; F32.A Depression, unspecified; D50.9 Iron deficiency anemia, unspecified; E11.9 Type 2 diabetes mellitus without complications; E86.0 Dehydration; E03.9 Hypothyroidism, unspecified; E53.8 Deficiency of other specified B group vitamins; Z90.49 Acquired absence of other specified parts of digestive tract; Z98.890 Other specified postprocedural states; Z98.51 Tubal ligation status; Z79.899 Other long term (current) drug therapy; Z79.4 Long term (current) use of insulin; Z88.8 Allergy status to other drugs, medicaments and biological substances
CPT/HCPCS: 00532-QZ; 36415; 36430; 36600; 51798; 70450; 70450-26; 71045; 71045-26; 71260; 71260-26; 74177; 74177-26; 77001; 80053; 80305-QW; 80307; 82140; 82607; 82803; 82947; 83036; 83605; 83690; 83735; 83880; 84100; 84132; 84443; 84484; 85025; 85027; 86140; 86850; 86900; 86901; 86920; 86922; 87040; 93005; 93010; 96361; 96365; 96375; 97110-GP; 97116-GP; 97162-GP; 97530-GP; 99223; 99232; 99233; 99239; 99285; 99285-25; A9270-GY; C1751; C1788; C1894; J0665; J1642; J1815; J1815-GY; J2003; J2250; J2310; J2405; J2543; J2704; J3010; J3475; J3490; J7030; J7050; P9016; P9047; Q9967

== ENCOUNTER 2024-10-23 11:37 | Inpatient (IN) | payer MEDICAID ==
[2024-10-23] MEDS ORDERED: Sodium Chloride 0.9% 10 ML Syringe FLUSH PRN (11:56)
[2024-10-23 12:24] LABS: BASOPHILS PERCENT AUTO 0.3 % (0.1-1.3); HEMATOCRIT 29.6 % (34.3-46.0); HEMOGLOBIN 9.7 g/dL (11.2-15.5); IMMATURE GRAN ABSOLUTE AUTO 0.03 K/uL (0.00-0.23); IMMATURE GRAN PERCENT AUTO 0.4 % (0.0-0.7); LYMPHOCYTES ABSOLUTE AUTO 0.65 K/uL (0.8-3.3); MEAN CORPUSCULAR HEMOGLOBIN 39.9 pg (31.6-35.5); MEAN CORPUSCULAR HGB CONC 32.8 g/dL (31.6-35.5); MEAN CORPUSCULAR VOLUME 121.8 fL (81.4-99.0); MONOCYTES ABSOLUTE AUTO 0.75 K/uL (0.20-0.90); MONOCYTES PERCENT AUTO 10.4 % (3.3-12.6); NEUTROPHILS ABSOLUTE AUTO 5.74 K/uL (1.0-7.6); NEUTROPHILS PERCENT AUTO 79.9 % (40.0-78.1); PLATELET COUNT,PLT 196 K/uL (130-375); WHITE BLOOD CELL COUNT,WBC 7.2 K/uL (3.2-11.0)
[2024-10-23 12:45] LABS: A/G RATIO 0.4 (1.2-2.2); ALANINE AMINOTRANSFERASE,ALT 60 U/L (12-78); ALBUMIN 1.9 g/dL (3.4-5.0); ALKALINE PHOSPHATASE 270 U/L (46-116); ASPARTATE AMNIOTRANSFERASE,AST 32 U/L (15-37); BILIRUBIN TOTAL 2.3 mg/dL (0.2-1.0); BLOOD UREA NITROGEN,BUN 8 mg/dL (7-18); C-REACTIVE PROTEIN 3.18 mg/dL (<0.50); CALCIUM 9.1 mg/dL (8.5-10.1); CHLORIDE,CL 106 mmol/L (100-108); CREATININE 1.2 mg/dL (0.6-1.0); EST CRCL DRUG DOSING (CG) 42.39 mL/min; ESTIMATED GFR 54 mL/min (>60); POTASSIUM,K 5.8 mmol/L (3.6-5.2); PROTEIN TOTAL,TP 6.5 g/dL (6.4-8.2); SODIUM,NA 143 mmol/L (140-148)
[2024-10-23 12:47] LABS: ANION GAP 32.8 mmol/L (5.0-14.0)
[2024-10-23 12:48] LABS: CARBON DIOXIDE,CO2 10 mmol/L (21-32); GLUCOSE RANDOM 449 mg/dL (74-106)
[2024-10-23 12:49] LABS: BASOPHILS ABSOLUTE AUTO 0.02 K/uL (0.00-0.10); LACTIC ACID 8.6 mmol/L (0.4-2.0); RED BLOOD CELL COUNT 2.43 M/uL (3.77-5.24)
[2024-10-23] MEDS: Sodium Chloride 0.9% 1,000 ML IV ONE ×2 (12:49→14:46)
[2024-10-23] MEDS: ceFAZolin 2 GM in Sodium Chloride 0.9% 50 ML IV ONE (12:50)
[2024-10-23 13:00] LABS: INR 1.7; PROTHROMBIN TIME 16.7 sec (9.2-10.6)
[2024-10-23 13:08] LABS: BASE EXCESS VENOUS -14.5 mm/L; CARBOXYHEMOGLOBIN 0.6 % (0.0-1.6); METHEMOGLOBIN 1.3 %; O2 SATURATION VENOUS 39.2; OXYHEMOGLOBIN 38.5 %; PCO2 VENOUS 25.4 mm/Hg; PH,VENOUS 7.259 (7.350-7.450); PO2 VENOUS 31.2 mm/Hg; TOTAL HEMOGLOBIN 10.4 g/dL (12.0-16.0)
[2024-10-23] MEDS: Insulin Regular in 0.9 % NACL 100 ML IV SCH (13:56)
[2024-10-23] MEDS: Sodium Chloride 0.9% 1,000 ML IV SCH ×2 (14:47→17:45)
[2024-10-23] MEDS ORDERED: Sodium Chloride 0.9% 150 ML Bag IV PRN (15:02)
[2024-10-23] MEDS ORDERED: Sodium Chloride 0.9% 100 ML IV SCH (15:15)
[2024-10-23] MEDS: Meropenem 1 GM in Sodium Chloride 0.9% 100 ML IV ONE (16:22)
[2024-10-23] MEDS: VANCOmycin 1.25 GM in Sodium Chloride 0.9% 250 ML IV ONE (16:26)
[2024-10-23] MEDS ORDERED: Sennosides/Docusate Sodium 50-8.6 MG Tab PO PRN (17:38)
[2024-10-23] MEDS ORDERED: 50% Dextrose in Water 50 ML Syringe IVPUSH PRN (17:38)
[2024-10-23] MEDS ORDERED: Magnesium Hydroxide 400 MG/5 ML Susp 30 ML Cup PO PRN (17:38)
[2024-10-23] MEDS ORDERED: Acetaminophen 650 MG Supp RECTAL PRN (17:38)
[2024-10-23] MEDS ORDERED: Acetaminophen 325 MG Tab PO PRN (17:38)
[2024-10-23] MEDS ORDERED: Ondansetron 4 MG Tab.DIS PO PRN (17:38)
[2024-10-23] MEDS ORDERED: Glucagon,Human Recombinant 1 MG Vial IM PRN (17:38)
[2024-10-23] MEDS: Lactated Ringers 1,000 ML IV SCH (17:44)
[2024-10-23] MEDS: Sodium Chloride 0.9% 100 ML IV SCH (18:12)
[2024-10-23] MEDS: Iopamidol 612 MG/ML 100 ML Bottle IV SCH (18:12)
[2024-10-23 19:08] LABS: APPEARANCE,URINE CLOUDY (CLEAR); BILIRUBIN,URINE NEGATIVE (NEGATIVE); COLOR,URINE YELLOW (YELLOW); GLUCOSE,URINE 100 mg/dL (NEGATIVE); KETONES,URINE 15 mg/dL (NEGATIVE); LEUKOCYTE ESTERASE,URINE MODERATE (NEGATIVE); NITRITE,URINE POSITIVE (NEGATIVE); OCCULT BLOOD,URINE MODERATE (NEGATIVE); PROTEIN,URINE NEGATIVE (NEGATIVE); UROBILINOGEN,URINE 0.2 EU/dL (0.2-1.0)
[2024-10-23 19:13] LABS: AMORPHOUS SEDIMENT,URINE NOT SEEN; BACTERIA,URINE MANY; EPITHELIAL CELLS,URINE NOT SEEN; MUCUS,URINE NOT SEEN; WBC,URINE PACKED (0-5)
[2024-10-23 19:14] LABS: AMPHETAMINES SCREEN, URINE NEGATIVE (NEGATIVE); BARBITURATE SCREEN,URINE NEGATIVE (NEGATIVE); BENZODIAZEPINES SCREEN,URINE NEGATIVE (NEGATIVE); METHADONE SCREEN, URINE NEGATIVE (NEGATIVE); METHAMPHETAMINES SCREEN, URINE NEGATIVE (NEGATIVE); OXYCODONE SCREEN,URINE NEGATIVE (NEGATIVE); PROPOXYPHENE SCREEN,URINE NEGATIVE (NEGATIVE); THC SCREEN,URINE 50 NG/ML NEGATIVE (NEGATIVE)
[2024-10-23 19:25] LABS: CALCIUM 8.1 mg/dL (8.5-10.1); CREATININE 1.3 mg/dL (0.6-1.0); EST CRCL DRUG DOSING (CG) 39.13 mL/min; POTASSIUM,K 4.5 mmol/L (3.6-5.2)
[2024-10-23 19:26] LABS: ANION GAP 28.5 mmol/L (5.0-14.0)
[2024-10-23] MEDS: Dextrose 5%-0.9% NaCl 1,000 ML IV SCH (19:50)
[2024-10-23] MEDS: Pantoprazole 40 MG Vial IV SCH (20:05)
[2024-10-23] MEDS: Meropenem 500 MG in Sodium Chloride 0.9% 50 ML IV SCH (23:58)
[2024-10-24 00:37] LABS: CALCIUM 7.9 mg/dL (8.5-10.1); CREATININE 0.7 mg/dL (0.6-1.0); EST CRCL DRUG DOSING (CG) 72.66 mL/min; POTASSIUM,K 4.1 mmol/L (3.6-5.2)
[2024-10-24 00:41] LABS: ANION GAP 19.1 mmol/L (5.0-14.0)
[2024-10-24] MEDS ORDERED: VANCOmycin 1 GM in Sodium Chloride 0.9% 250 ML IV SCH (04:00)
[2024-10-24 06:00] LABS: INR 1.9; PROTHROMBIN TIME 19.3 sec (9.2-10.6)
[2024-10-24 06:17] LABS: A/G RATIO 0.4 (1.2-2.2); ALANINE AMINOTRANSFERASE,ALT 41 U/L (12-78); ALBUMIN 1.3 g/dL (3.4-5.0); ALKALINE PHOSPHATASE 212 U/L (46-116); ASPARTATE AMNIOTRANSFERASE,AST 41 U/L (15-37); BILIRUBIN TOTAL 1.5 mg/dL (0.2-1.0); BLOOD UREA NITROGEN,BUN 6 mg/dL (7-18); CALCIUM 7.9 mg/dL (8.5-10.1); CARBON DIOXIDE,CO2 19 mmol/L (21-32); CHLORIDE,CL 116 mmol/L (100-108); CREATININE 0.6 mg/dL (0.6-1.0); EST CRCL DRUG DOSING (CG) 84.78 mL/min; ESTIMATED GFR 107 mL/min (>60); GLUCOSE RANDOM 139 mg/dL (74-106); POTASSIUM,K 3.7 mmol/L (3.6-5.2); PROTEIN TOTAL,TP 4.6 g/dL (6.4-8.2); SODIUM,NA 151 mmol/L (140-148)
[2024-10-24 06:25] LABS: ANION GAP 19.7 mmol/L (5.0-14.0)
[2024-10-24 06:29] LABS: HEMATOCRIT 21.1 % (34.3-46.0); MEAN CORPUSCULAR HEMOGLOBIN 39.8 pg (31.6-35.5); MEAN CORPUSCULAR HGB CONC 33.2 g/dL (31.6-35.5); WHITE BLOOD CELL COUNT,WBC 5.2 K/uL (3.2-11.0)
[2024-10-24 06:37] LABS: MEAN CORPUSCULAR VOLUME 119.9 fL (81.4-99.0)
[2024-10-24 06:38] LABS: RED BLOOD CELL COUNT 1.76 M/uL (3.77-5.24)
[2024-10-24] MEDS: Meropenem 1 GM in Sodium Chloride 0.9% 100 ML IV SCH (07:57)
[2024-10-24] MEDS: VANCOmycin 1.25 GM in Sodium Chloride 0.9% 250 ML IV SCH (09:00)
[2024-10-24] MEDS: Lactulose Soln 10 GM/15 ML 15 ML UD Cup PO SCH (09:49)
[2024-10-24] MEDS: Dextrose 5% in Water 1,000 ML IV SCH ×2 (10:58→21:06)
[2024-10-24 12:37] LABS: CREATININE 0.7 mg/dL (0.6-1.0); EST CRCL DRUG DOSING (CG) 72.66 mL/min; POTASSIUM,K 3.7 mmol/L (3.6-5.2)
[2024-10-24 12:39] LABS: ANION GAP 18.7 mmol/L (5.0-14.0)
[2024-10-24] MEDS: Albumin Human 25 GM in Premix Bag 1 BAG IV ONE (12:49)
[2024-10-24] MEDS: Phytonadione 5 MG in Sodium Chloride 0.9% 50 ML IV ONE (12:50)
[2024-10-24] MEDS: Lidocaine 2% 30 ML, Alum Hydrox/Mag Hydrox/Simeth 30 ML, diphenhydrAMINE 75 MG PO PRN (13:38)
[2024-10-24] MEDS ORDERED: Trospium 20 MG Tab PO SCH (16:30)
[2024-10-24] MEDS ORDERED: Amylase/Lipase/Protease 12,000 Unit Cap.CR PO PRN (16:43)
[2024-10-24] MEDS: Acetaminophen/HYDROcodone 108-2.5 MG/5 ML Soln 15 ML UD Cup PO SCH (17:03)
[2024-10-24] MEDS: Amylase/Lipase/Protease 12,000 Unit Cap.CR PO SCH (17:04)
[2024-10-24] MEDS: Pantoprazole 40 MG Tab.CR PO SCH (17:06)
[2024-10-24 17:16] LABS: CREATININE 0.8 mg/dL (0.6-1.0); EST CRCL DRUG DOSING (CG) 63.58 mL/min; POTASSIUM,K 3.7 mmol/L (3.6-5.2)
[2024-10-24 17:28] LABS: ANION GAP 22.7 mmol/L (5.0-14.0); CALCIUM 7.8 mg/dL (8.5-10.1)
[2024-10-24] MEDS ORDERED: Pantoprazole 40 MG Tab.CR PO SCH (21:00)
[2024-10-24] MEDS: Insulin Regular in 0.9 % NACL 100 ML IV SCH (21:04)
[2024-10-24] MEDS: atorvaSTATin 20 MG Tab PO SCH (21:12)
[2024-10-24] MEDS: traZODone 50 MG Tab PO SCH (21:12)
[2024-10-24] MEDS: Amitriptyline 25 MG Tab PO SCH (21:12)
[2024-10-24 22:14] LABS: ANION GAP 23.4 mmol/L (5.0-14.0); CALCIUM 7.7 mg/dL (8.5-10.1); CREATININE 0.6 mg/dL (0.6-1.0); EST CRCL DRUG DOSING (CG) 84.78 mL/min; POTASSIUM,K 3.4 mmol/L (3.6-5.2)
[2024-10-25 05:20] LABS: HEMATOCRIT 25.2 % (34.3-46.0); HEMOGLOBIN 8.1 g/dL (11.2-15.5); MEAN CORPUSCULAR HEMOGLOBIN 38.2 pg (31.6-35.5); MEAN CORPUSCULAR HGB CONC 32.1 g/dL (31.6-35.5); MEAN CORPUSCULAR VOLUME 118.9 fL (81.4-99.0); WHITE BLOOD CELL COUNT,WBC 2.9 K/uL (3.2-11.0)
[2024-10-25 05:41] LABS: A/G RATIO 0.4 (1.2-2.2); ALANINE AMINOTRANSFERASE,ALT 41 U/L (12-78); ALBUMIN 1.3 g/dL (3.4-5.0); ALKALINE PHOSPHATASE 233 U/L (46-116); ASPARTATE AMNIOTRANSFERASE,AST 84 U/L (15-37); BILIRUBIN TOTAL 2.2 mg/dL (0.2-1.0); BLOOD UREA NITROGEN,BUN 4 mg/dL (7-18); CALCIUM 7.5 mg/dL (8.5-10.1); CARBON DIOXIDE,CO2 21 mmol/L (21-32); CHLORIDE,CL 110 mmol/L (100-108); CREATININE 0.6 mg/dL (0.6-1.0); EST CRCL DRUG DOSING (CG) 84.78 mL/min; ESTIMATED GFR 107 mL/min (>60); GLUCOSE RANDOM 153 mg/dL (74-106); POTASSIUM,K 3.3 mmol/L (3.6-5.2); PROTEIN TOTAL,TP 4.8 g/dL (6.4-8.2); SODIUM,NA 145 mmol/L (140-148)
[2024-10-25 06:08] LABS: ANION GAP 17.3 mmol/L (5.0-14.0)
[2024-10-25 06:23] LABS: RED BLOOD CELL COUNT 2.12 M/uL (3.77-5.24)
[2024-10-25] MEDS: Acetaminophen/HYDROcodone 108-2.5 MG/5 ML Soln 15 ML UD Cup PO ONE (07:28)
[2024-10-25] MEDS: Potassium Chloride 20 MEQ Tab.ER PO ONE (07:30)
[2024-10-25] MEDS: Levothyroxine 100 MCG Tab PO SCH (07:33)
[2024-10-25] MEDS: Levothyroxine 25 MCG Tab PO SCH (07:33)
[2024-10-25] MEDS: Tamsulosin 0.4 MG Cap.ER PO SCH (07:38)
[2024-10-25] MEDS: FLUoxetine 20 MG Cap PO SCH (07:38)
[2024-10-25] MEDS: Meropenem 1 GM in Sodium Chloride 0.9% 100 ML IV SCH (08:23)
[2024-10-25] MEDS: VANCOmycin 1.25 GM in Sodium Chloride 0.9% 250 ML IV ONE (08:23)
[2024-10-25] MEDS: Sodium Chloride 0.9% 10 ML Syringe FLUSH ONE (08:24)
[2024-10-25] MEDS: Insulin Glargine,Human Rec. Analog 100 Units/ML 3 ML Pen SUBCUT SCH (10:39)
[2024-10-25] MEDS: Sodium Chloride 0.9% 250 ML IV SCH (10:39)
[2024-10-25 12:15] LABS: BASE EXCESS VENOUS -4.8 mm/L; BICARBONATE,VENOUS 18.7 mmol/L; METHEMOGLOBIN 1.3 %; O2 SATURATION VENOUS 78.7; OXYHEMOGLOBIN 76.1 %; PCO2 VENOUS 30.6 mm/Hg; PH,VENOUS 7.402 (7.350-7.450); PO2 VENOUS 44.4 mm/Hg; TOTAL HEMOGLOBIN 9.5 g/dL (12.0-16.0)
[2024-10-25 12:33] LABS: CALCIUM 7.7 mg/dL (8.5-10.1); CREATININE 0.5 mg/dL (0.6-1.0); EST CRCL DRUG DOSING (CG) 101.73 mL/min; POTASSIUM,K 4.1 mmol/L (3.6-5.2)
[2024-10-25 12:34] LABS: ANION GAP 16.1 mmol/L (5.0-14.0)
[2024-10-25] MEDS: Insulin Lispro 100 Unit/ML 3 ML KwikPen SUBCUT SCH (16:40)
[2024-10-25] MEDS: Acetaminophen/HYDROcodone 325-5 MG Tab PO SCH (17:07)
[2024-10-25] MEDS: Ondansetron 4 MG/2 ML SDV IV PRN (17:56)
[2024-10-26 05:50] LABS: HEMATOCRIT 25.6 % (34.3-46.0); HEMOGLOBIN 8.2 g/dL (11.2-15.5); MEAN CORPUSCULAR HEMOGLOBIN 38.1 pg (31.6-35.5); MEAN CORPUSCULAR VOLUME 119.1 fL (81.4-99.0); WHITE BLOOD CELL COUNT,WBC 2.9 K/uL (3.2-11.0)
[2024-10-26 06:13] LABS: RED BLOOD CELL COUNT 2.15 M/uL (3.77-5.24)
[2024-10-26 06:17] LABS: A/G RATIO 0.4 (1.2-2.2); ALANINE AMINOTRANSFERASE,ALT 38 U/L (12-78); ALBUMIN 1.3 g/dL (3.4-5.0); ALKALINE PHOSPHATASE 224 U/L (46-116); ASPARTATE AMNIOTRANSFERASE,AST 82 U/L (15-37); BILIRUBIN DIRECT 1.38 mg/dL (0.0-0.2); BILIRUBIN INDIRECT 0.72; BILIRUBIN TOTAL 2.1 mg/dL (0.2-1.0); BLOOD UREA NITROGEN,BUN 3 mg/dL (7-18); C-REACTIVE PROTEIN 2.01 mg/dL (<0.50); CALCIUM 7.5 mg/dL (8.5-10.1); CARBON DIOXIDE,CO2 21 mmol/L (21-32); CHLORIDE,CL 113 mmol/L (100-108); CREATININE 0.6 mg/dL (0.6-1.0); EST CRCL DRUG DOSING (CG) 84.78 mL/min; ESTIMATED GFR 107 mL/min (>60); GLUCOSE RANDOM 82 mg/dL (74-106); MAGNESIUM 1.2 mg/dL (1.8-2.4); PHOSPHORUS 2.7 mg/dL (2.5-4.9); POTASSIUM,K 3.8 mmol/L (3.6-5.2); PROTEIN TOTAL,TP 4.8 g/dL (6.4-8.2); SODIUM,NA 147 mmol/L (140-148)
[2024-10-26 06:21] LABS: ANION GAP 16.8 mmol/L (5.0-14.0)
[2024-10-26] MEDS: Potassium Chloride 20 MEQ Tab.ER PO ONE (10:21)
[2024-10-26] MEDS: Magnesium Sulfate 2 GM/50 mL 2 GM in Premix Bag 1 BAG IV ONE (10:21)
[2024-10-26] MEDS: Furosemide 40 MG Tab PO ONE (10:21)
[2024-10-26] MEDS ORDERED: VANCOmycin 1 GM in Sodium Chloride 0.9% 250 ML IV SCH (16:00)
[2024-10-26] MEDS: cefTRIAXone 2 GM in Sodium Chloride 0.9% 50 ML IV SCH (16:24)
[2024-10-27 05:49] LABS: HEMATOCRIT 24.9 % (34.3-46.0); HEMOGLOBIN 7.9 g/dL (11.2-15.5); MEAN CORPUSCULAR HEMOGLOBIN 37.8 pg (31.6-35.5); MEAN CORPUSCULAR HGB CONC 31.7 g/dL (31.6-35.5); MEAN CORPUSCULAR VOLUME 119.1 fL (81.4-99.0); WHITE BLOOD CELL COUNT,WBC 3.7 K/uL (3.2-11.0)
[2024-10-27 06:07] LABS: ALBUMIN 1.2 g/dL (3.4-5.0); BLOOD UREA NITROGEN,BUN 4 mg/dL (7-18); CALCIUM 7.6 mg/dL (8.5-10.1); CARBON DIOXIDE,CO2 24 mmol/L (21-32); CHLORIDE,CL 112 mmol/L (100-108); CREATININE 0.6 mg/dL (0.6-1.0); EST CRCL DRUG DOSING (CG) 84.78 mL/min; ESTIMATED GFR 107 mL/min (>60); GLUCOSE RANDOM 102 mg/dL (74-106); PHOSPHORUS 2.3 mg/dL (2.5-4.9); POTASSIUM,K 4.4 mmol/L (3.6-5.2); SODIUM,NA 144 mmol/L (140-148)
[2024-10-27 06:08] LABS: ANION GAP 12.4 mmol/L (5.0-14.0)
[2024-10-27 06:47] LABS: RED BLOOD CELL COUNT 2.09 M/uL (3.77-5.24)
[2024-10-27] MEDS: Furosemide 20 MG Tab PO SCH (09:54)
[2024-10-28] MEDS ORDERED: Insulin Glargine,Human Rec. Analog 100 Units/ML 3 ML Pen SUBCUT SCH (09:00)
== END 2024-10-27 14:45 | disposition home or self-care (01) | DRG 871 ==
LOC: JP.ED 11:37 → JP.ICU 15:45
PROVIDERS: ADMIT Internal Medicine; ATTEND Hospitalist
PROC: 3E03329 Introduction of Other Anti-infective into Peripheral Vein, Percutaneous Approach (ICD-10-PCS; principal; 2024-10-23)
PROC: 0T9B70Z Drainage of Bladder with Drainage Device, Via Natural or Artificial Opening (ICD-10-PCS; 2024-10-23)
PROC: 30233N1 Transfusion of Nonautologous Red Blood Cells into Peripheral Vein, Percutaneous Approach (ICD-10-PCS; 2024-10-23)
DX: A40.8 Other streptococcal sepsis (principal); E11.11 Type 2 diabetes mellitus with ketoacidosis with coma; G93.41 Metabolic encephalopathy; N30.00 Acute cystitis without hematuria; E78.00 Pure hypercholesterolemia, unspecified; I10 Essential (primary) hypertension; K21.9 Gastro-esophageal reflux disease without esophagitis; M79.7 Fibromyalgia; R65.20 Severe sepsis without septic shock; K76.82 Hepatic encephalopathy; E87.5 Hyperkalemia; K75.81 Nonalcoholic steatohepatitis (NASH); M81.0 Age-related osteoporosis without current pathological fracture; G43.909 Migraine, unspecified, not intractable, without status migrainosus; F32.A Depression, unspecified; E03.9 Hypothyroidism, unspecified; Z90.89 Acquired absence of other organs; Z86.0100 Personal history of colon polyps, unspecified; Z87.440 Personal history of urinary (tract) infections; Z90.49 Acquired absence of other specified parts of digestive tract; Z98.890 Other specified postprocedural states; Z98.84 Bariatric surgery status; Z98.51 Tubal ligation status; Z88.1 Allergy status to other antibiotic agents; Z91.048 Other nonmedicinal substance allergy status; Z88.5 Allergy status to narcotic agent; Z88.6 Allergy status to analgesic agent; Z79.899 Other long term (current) drug therapy; Z79.4 Long term (current) use of insulin; Z79.890 Hormone replacement therapy; D64.9 Anemia, unspecified
CPT/HCPCS: 36415; 36430; 36556; 51702; 71260; 74177; 80048; 80053; 80069; 80076; 80202; 80305-QW; 80307; 81001; 82009; 82140; 82150; 82803; 82947; 83605; 83690; 83735; 85018; 85025; 85027; 85610; 86140; 86850; 86900; 86901; 86920; 86922; 87040; 87086; 87088; 93005; 93010; 96360; 96361; 96365; 97161-GP; 97530-GP; 99223; 99232; 99233; 99239; 99285; 99285-25; A9270-GY; J0690; J0696; J1815-GY; J2185; J2405; J2470; J3370; J3371; J3430; J3475; J7030; J7050; J7070; J7120; P9016; P9047; Q9967